=== PATIENT | male | born 1950 | race Caucasian/White ===

== ENCOUNTER 2025-02-28 08:02 | Inpatient (IN) ==
--- NOTE | 2025-02-05 16:10 | PAT Medication Instructions ---
Medication Instructions Date of Service February 05, 2025 Home Medications Medication Instructions Recorded insulin lispro 100 unit/mL See Rx Instructions .Route 04/01/24 subcutaneous pen (Admelog SoloStar .COMPLEX #105 mL U-) semaglutide 1 mg/dose (4 mg/3 mL) 1 mg (0.75 mL) subcut ONCE #9 mL 08/09/24 subcutaneous pen injector (Ozempic) insulin degludec 200 unit/mL (3 120 unit (0.6 mL) subcut BID #108 11/21/ mL) subcutaneous pen (Tresiba mL FlexTouch U-200 insulin) amlodipine 10 mg tablet 10 mg PO QAM aspirin 81 mg tablet,delayed release (Adult Low Dose Aspirin) 81 mg PO DAILY cholecalciferol (vitamin D3) 1,250 mcg (50,000 unit) tablet 50,000 unit PO .COMPLEX fenofibrate nanocrystallized 145 mg tablet 145 mg PO QAM isosorbide mononitrate 60 mg tablet,extended release 24 hr 60 mg PO QAM coenzyme Q10 200 mg capsule 200 mg PO QAM ascorbic acid (vitamin C) 500 mg capsule 500 mg PO QAM carvedilol 25 mg tablet 25 mg PO BID zinc gluconate 30 mg tablet 30 mg PO QAM atorvastatin 40 mg tablet 80 mg PO HS ticagrelor 90 mg tablet (Brilinta) 90 mg PO BID insulin lispro 100 unit/mL subcutaneous pen (Admelog SoloStar U-) See Rx Instructions semaglutide 1 mg/dose (4 mg/3 mL) subcutaneous pen injector (Ozempic) 1 mg (0.75 mL) subcut ONCE insulin degludec 200 unit/mL (3 mL) subcutaneous pen (Tresiba FlexTouch U-200 insulin) 120 unit (0.6 mL) subcut BID gabapentin 300 mg capsule 300 mg PO BID losartan 100 mg tablet 25 mg PO QAM Continue as directed cholecalciferol (vitamin D3) 1,250 mcg (50,000 unit) tablet 50,000 unit PO .COMPLEX (just do not take on day of surgery) ASK your prescriber and surgeon aspirin 81 mg tablet,delayed release (Adult Low Dose Aspirin) 81 mg PO DAILY ticagrelor 90 mg tablet (Brilinta) 90 mg PO BID STOP taking 2 weeks before surgery coenzyme Q10 200 mg capsule 200 mg PO QAM STOP taking at least 7 days before surgery semaglutide 1 mg/dose (4 mg/3 mL) subcutaneous pen injector (Ozempic) 1 mg (0.75 mL) subcut ONCE STOP taking 48 hours before surgery fenofibrate nanocrystallized 145 mg tablet 145 mg PO QAM DO NOT take the morning of surgery ascorbic acid (vitamin C) 500 mg capsule 500 mg PO QAM losartan 100 mg tablet 25 mg PO QAM zinc gluconate 30 mg tablet 30 mg PO QAM insulin lispro 100 unit/mL subcutaneous pen (Admelog SoloStar U-) See Rx Inst ructions Take morning of surgery With a small sip of water, OTHERWISE NOTHING TO EAT OR DRINK AFTER MIDNIGHT: amlodipine 10 mg tablet 10 mg PO QAM isosorbide mononitrate 60 mg tablet,extended release 24 hr 60 mg PO QAM carvedilol 25 mg tablet 25 mg PO BID gabapentin 300 mg capsule 300 mg PO BID Take evening before surgery carvedilol 25 mg tablet 25 mg PO BID atorvastatin 40 mg tablet 80 mg PO HS gabapentin 300 mg capsule 300 mg PO BID insulin degludec 200 unit/mL (3 mL) subcutaneous pen (Tresiba FlexTouch U-200 insulin) 120 unit (0.6 mL) subcut BID insulin lispro 100 unit/mL subcutaneous pen (Admelog SoloStar U-) See Rx Instructions Insulin Dependent Diabetic Patients * Test your blood sugar the morning of surgery * If Blood Sugar is GREATER THAN 150, take HALF of your regular dose of: insulin degludec 200 unit/mL (3 mL) subcutaneous pen (Tresiba FlexTouch U-200 insulin) (60 units) * If Blood Sugar is LESS THAN 150, DO NOT TAKE ANY: insulin degludec 200 unit/mL (3 mL) subcutaneous pen (Tresiba FlexTouch U-200 insulin) Other Notes If you have any questions please call us at [phone] or [phone] or [phone] or [phone]
--- NOTE | 2025-02-14 10:11 | Anesthesiology Consultation ---
Date of Service February 14, 2025 Assessment & Plan (1) Encounter for pre-operative examination: - Check BSG DOS - Infectious disease screening: Per assessment on 02/14/25- No known recent infectious disease contacts or current infectious disease symptoms. - GLP-1 medication instructions: Patient informed by PAT to stop 7 days prior to surgery- voiced understanding. DOS 02/28/25. Advised last dose to be 02/17/25. - Cardiology visit (01/16/25): "Patient is cleared for proposed spinal surgery at moderate risk based on revised sheri criteria.. Should he be required to hold his ASA/Brilinta by surgeon, he is > 1 year post stenting. I did discuss that his risk of stent thrombosis/SC is low but not zero should he be asked to hold his D APT preop and should resume as soon as safely possible postop.. Ischemic cardiomyopathy.. Entresto on hold as he does have a creatinine of 2.4. Continue Coreg, no other GDMT due to renal failure. Update echo now.." Echo done 01/23/25* - Cardiology note (01/24/25): "Low to moderate risk.. Patient is cleared for scheduled surgery" - Endocrine visit (02/11/25): "Glucose control is excellent. He is currently tracking blood sugars 3X/day every day consistently: Average 157 mg/dL, time in range (70-180 mg/dL) 75%, no hypoglycemia, predicted A1c 7.2%. No updated labs in several months, still waiting for those to be sent to us. He remains on Ozempic 1 mg, Tresiba 120 units twice daily, and NovoLog 35-40 units with meals. No questions or concerns regarding glucose control today.. He was previously prescribed Farxiga by his infertility medical assistant in 2023, unfortunately could not tolerate due to severe nausea. Could therefore challenge him with Jardiance in the future.. He is having spine surgery on February 28, and was requested to hold Ozempic 1 week prior to the procedure. We discussed today that he will likely need about 10-20% more insulin during that week prior to surgery without the effects from Ozempic. He is comfortable adjusting insulin on his own. We also discussed the importance of very good glucose control the first 72 hours following surgery for recovery purposes.. Foot exam today unremarkable; perfect sensation to monofilament testing, pulses palpable.." - Pending: * Awaiting surgeon-ordered PCP preop evaluation ([facility]/Ted Oneil PAC, appt 02/19). * Awaiting upcoming nephrology visit (Dr. Priti Collins, appt 02/21). * Awaiting 11/2023 cardiac cath report (from either [facility] or cardio/Dr. Fan). Chart Review Chart Review: Patient seen in Pre Admission Testing Teaching & Discussion Pre-Anesthesia Teaching/Discussion Notes: Instructed NPO after midnight before surgery,except medications with 15 cc of water. Medication instructions provided according to the PAT guidelines. History Surgery Operation Date: 02/28/25 07:45 Proposed Procedures p L4-S1 Decompression and Fusion, Spinal Cord Monitoring - Kirk Saelh DO Height/Weight Height: 6 ft 1 in Weight: 108.3 kg Allergies Allergy/AdvReac Type Severity Reaction Status Date / Time No Known Allergies Allergy Unknown Verified 02/11/25 08:51 Medications Home Medications Medication Instructions Recorded Confirmed Last Taken amlodipine 10 mg tablet 10 mg PO QAM 07/31/20 02/11/25 Unknown aspirin 81 mg tablet,delayed 81 mg PO DAILY 07/31/20 02/11/25 Unknown release (Adult Low Dose Aspirin) blood sugar diagnostic (FreeStyle #10 ea 07/31/20 02/11/25 Unknown Lite Strips) cholecalciferol (vitamin D3) 1,250 50,000 unit PO .COMPLEX 07/31/20 02/11/25 Unknown mcg (50,000 unit) tablet fenofibrate nanocrystallized 145 145 mg PO QAM 07/31/20 02/11/25 Unknown mg tablet isosorbide mononitrate 60 mg 60 mg PO QAM 07/31/20 02/11/25 Unknown tablet,extended release 24 hr lancets 28 gauge (FreeStyle #100 ea 02/04/21 02/11/25 Unknown Lancets) coenzyme Q10 200 mg capsule 200 mg PO QAM 06/15/21 02/11/25 Unknown ascorbic acid (vitamin C) 500 mg 500 mg PO QAM 10/12/22 02/11/25 Unknown capsule carvedilol 25 mg tablet 25 mg PO BID 02/08/23 02/11/25 Unknown zinc gluconate 30 mg tablet 30 mg PO QAM 02/08/23 02/11/25 Unknown atorvastatin 40 mg tablet 80 mg PO HS 02/05/24 02/11/25 Unknown ticagrelor 90 mg tablet (Brilinta) 90 mg PO BID 02/05/24 02/11/25 Unknown semaglutide 1 mg/dose (4 mg/3 mL) 1 mg (0.75 mL) subcut ONCE #9 mL 08/09/24 02/11/25 Unknown subcutaneous pen injector (Ozempic) insulin degludec 200 unit/mL (3 120 unit (0.6 mL) subcut BID #108 11/21/24 02/11/25 Unknown mL) subcutaneous pen (Tresiba mL FlexTouch U-200 insulin) gabapentin 300 mg capsule 300 mg PO BID 02/03/25 02/11/25 Unknown losartan 100 mg tablet 25 mg PO QAM 02/03/25 02/11/25 Unknown insulin lispro 100 unit/mL See Rx Instructions .Route 02/11/25 02/11/25 Unknown subcutaneous pen (Admelog SoloStar .COMPLEX #105 mL U-) Past Medical History Medical History Arthritis CAD (coronary artery disease) 11/2023- stents x2 Follows with Dr. Fan/[facility] Carotid artery stenosis <50% bilat ICA stenosis by 03/2024 doppler (per received cardio records) Chronic back pain Chronic kidney disease, stage 4 (severe) Follows with [facility] nephrology (Dr. Collins) DDD (degenerative disc disease), lumbar Diabetic nephropathy associated with type 2 diabetes mellitus Dyslipidemia HTN (hypertension) Hx of myocardial infarction (11/2023) SC > stents x2 Hx of renal calculi Ischemic cardiomyopathy T2DM (type 2 diabetes mellitus) Exercise / Class Metabolic Activity III < 4 Walking/Shop/Light housework Past Family History Family History Father Cancer Sister Cancer Coronary heart disease Past Surgical History Surgical History History of bilateral knee arthroplasty Most recent Left knee (d/t torn meniscus 3-4 years ago) History of heart artery stent (11/2023) Stents x2 History of shoulder surgery Right shoulder Hx of cardiac catheterization (11/2023) stents x2 Hx of colonoscopy Hx of lithotripsy Past Anesthesia History No Hx of Anesthesia Complications and No Family Hx of Anesthesia Complications History of PONV No Hx of PONV and No Hx of Motion Sickness Social History Smoking Status: Never smoker Do You Dip or Chew Tobacco: No (Quit chewing 5+ years ago) Hx Alcohol Use: No Hx Substance Use: No substance use type: does not use Review of Systems Patient denies chest pain, shortness of breath, fever, chills, cough, wheezing, palpitations. Physical Exam Vital Signs BP 123/70 P 68 TEMP 97.5 SP02 97%RA RESP 18 Physical Mildly decreased cervical extension range of motion. Full TMJ range of motion. TMD 3 finger breaths Mallampati Score III Dentition: intact Lungs: clear throughout to auscultation Cardiac: regular rate and rhythm, no murmurs noted Spine: normal Carotid arteries: negative bruit Extremities: no LE edema Lab Results Anesthesia Preop Results Results Anesthesia Widget: WBC 7.49 K/ul (4.8-10.8) 02/14/25 Hgb 13.4 g/dl (14.0-18.0) L 02/14/25 Hct 39.2 % (42.0-52.0) L 02/14/25 Plt 168 K/uL (130-400) 02/14/25 PT 12.3 Seconds (9.0-12.0) H 02/14/25 PTT 24 Seconds (21-31) 02/14/25 INR 1.1 (0.9-1.1) 02/14/25 HA1c 6.8 % H 02/13/25 Blood Type B Positive 02/14/25 Antibody Screen NEGATIVE 02/14/25 Testing Laboratory Results 02/14/24 SODIUM 142 POTASSIUM 4.0 CHLORIDE 113 CO2 26.0 BUN 27.0 CREATININE 2.30 GLUCOSE 160 UA negative leuk est/nitrite HGBA1C 6.8% Electrocardiogram Date: 02/14/25 SR with first degree AVB at 67bpm. PRWP, consider anterior SC vs lead placement vs LVH. NS TWA. Compared to , NS TWA has replaced inverted T waves in inferior leads per pharmacy intern comparison. Chest X-Ray Date: 02/14/25 Findings: + NAD Echocardiogram Date: 01/23/25 LVEF 40-45%. Mild LVH. Mildly HK mid inferoseptum apical lateral wall and apical septum and mildly decreased systolic function. Mild LAE. Mild MR. Grade I DD. Cardiac Catheterization "11/2023 STEMI ([place]) CATH PCI ostial LAD" per 01/16/25 cardiology office visit note. Multiple attempts to obtain official cath report have been unsuccessful thus far.
[2025-02-28] MEDS ORDERED: ROCURONIUM BROMIDE 10 MG/ML 5 ML VIAL IV ONE ×2 (08:27→10:12)
[2025-02-28] MEDS ORDERED: fentaNYL citrate PF 100 MCG/2 ML VIAL ONE (08:27)
[2025-02-28] MEDS ORDERED: LIDOCAINE 2% 2 ML VIAL/AMP(20MG/ML) INFIL ONE (08:27)
[2025-02-28] MEDS ORDERED: PROPOFOL IV EMULSION 10 MG/ML 20 ML VIAL IV ONE ×2 (08:27→08:32)
[2025-02-28] MEDS ORDERED: ONDANSETRON INJ 2 MG/ML 2 ML VIAL ONE (08:27)
[2025-02-28] MEDS ORDERED: MIDAZOLAM HCL 1 MG/ML 2ML VIAL ONE (08:27)
[2025-02-28] MEDS ORDERED: DEXAMETHASONE SOD INJ 4 MG/ML VIAL ONE (08:27)
[2025-02-28] MEDS: SODIUM CHLORIDE 0.9% 1000ML IV SCH (08:32)
[2025-02-28] MEDS: GABAPENTIN 300 MG CAP PO SCH ×2 (08:33→20:23)
[2025-02-28] MEDS: CeleBREX 200 MG CAP PO SCH (08:33)
[2025-02-28] MEDS: ACETAMINOPHEN 500 MG TAB PO SCH (08:33)
[2025-02-28] MEDS: LR 60ML/HR IV SCH (08:46)
[2025-02-28] MEDS ORDERED: fentaNYL citrate PF 100 MCG/2 ML VIAL IV PRN (09:15)
[2025-02-28] MEDS ORDERED: ePHEDrine sulfate 50 MG/ML AMP IV PRN (09:15)
[2025-02-28] MEDS ORDERED: ATROPINE SULFATE 0.1 MG/ML 10ML SYR IV PRN (09:15)
[2025-02-28] MEDS ORDERED: ONDANSETRON INJ 2 MG/ML 2 ML VIAL IV PRN (09:15)
--- NOTE | 2025-02-28 09:20 | History & Physical Bridge Note ---
Date of Service February 28, 2025 History & Physical Bridge Note I have examined the patient, reviewed the History & Physical and in the interval since the performance of the History & Physical I have noted the following changes of clinical significance: no changes noted
--- NOTE | 2025-02-28 09:21 | History & Physical Report ---
Date of Service February 28, 2025 Assessment & Plan (1) Lumbosacral spondylosis with radiculopathy: Plan: L4-S1 decompression fusion History of Present Illness Chief Complaint: Back and leg pain Primary Care Provider: Ted Oneil PA-C This is a 74-year-old male presents with chronic persistent back and leg pain and failing course of nonoperative care is here for surgical invention. Allergies Allergy/AdvReac Type Severity Reaction Status Date / Time No Known Allergies Allergy Unknown Verified 02/28/25 08:15 Home Medications Medication Instructions Recorded Confirmed Type amlodipine 10 mg tablet 10 mg PO QAM 07/31/20 02/28/25 History aspirin 81 mg tablet,delayed 81 mg PO DAILY 07/31/20 02/28/25 History release (Adult Low Dose Aspirin) blood sugar diagnostic (FreeStyle #10 ea 07/31/20 02/11/25 History Lite Strips) cholecalciferol (vitamin D3) 1,250 50,000 unit PO .COMPLEX 07/31/20 02/28/25 History mcg (50,000 unit) tablet fenofibrate nanocrystallized 145 145 mg PO QAM 07/31/20 02/28/25 History mg tablet isosorbide mononitrate 60 mg 60 mg PO QAM 07/31/20 02/28/25 History tablet,extended release 24 hr lancets 28 gauge (FreeStyle #100 ea 02/04/21 02/11/25 History Lancets) coenzyme Q10 200 mg capsule 200 mg PO QAM 06/15/21 02/28/25 History ascorbic acid (vitamin C) 500 mg 500 mg PO QAM 10/12/22 02/28/25 History capsule carvedilol 25 mg tablet 25 mg PO BID 02/08/23 02/28/25 History zinc gluconate 30 mg tablet 30 mg PO QAM 02/08/23 02/28/25 History atorvastatin 40 mg tablet 80 mg PO HS 02/05/24 02/28/25 History ticagrelor 90 mg tablet (Brilinta) 90 mg PO BID 02/05/24 02/28/25 History semaglutide 1 mg/dose (4 mg/3 mL) 1 mg (0.75 mL) subcut ONCE #9 mL 08/09/24 02/28/25 Rx subcutaneous pen injector (Ozempic) insulin degludec 200 unit/mL (3 120 unit (0.6 mL) subcut BID #108 11/21/24 02/28/25 Rx mL) subcutaneous pen (Tresiba mL FlexTouch U-200 insulin) gabapentin 300 mg capsule 300 mg PO BID 02/03/25 02/28/25 History losartan 100 mg tablet 25 mg PO QAM 02/03/25 02/28/25 History insulin lispro 100 unit/mL See Rx Instructions .Route 02/11/25 02/28/25 Rx subcutaneous pen (Admelog SoloStar .COMPLEX #105 mL U-) Past Med/Surg History Problem List (Updated 02/28/25 @ 09:21 by Kirk Saleh DO) Lumbosacral spondylosis with radiculopathy Encounter for pre-operative examination T2DM (type 2 diabetes mellitus) Hypertension (Chronic) Dyslipidemia (Chronic) Stented coronary artery (Chronic) CAD (coronary atherosclerotic disease) (Chronic) Vitamin D deficiency Chronic renal disease, stage 4, severely decreased glomerular filtration rate (GFR) between 15-29 mL/min/1.73 square meter (Chronic) Diabetic nephropathy associated with type 2 diabetes mellitus (Chronic) Background diabetic retinopathy associated with type 2 diabetes mellitus (Chronic) Medical History Arthritis CAD (coronary artery disease) 11/2023- stents x2 Follows with Dr. Fan/[facility] Carotid artery stenosis <50% bilat ICA stenosis by 03/2024 doppler (per received cardio records) Chronic back pain Chronic kidney disease, stage 4 (severe) Follows with [facility] nephrology (Dr. Collins) DDD (degenerative disc disease), lumbar Diabetic nephropathy associated with type 2 diabetes mellitus Dyslipidemia HTN (hypertension) Hx of myocardial infarction (11/2023) SC > stents x2 Hx of renal calculi Ischemic cardiomyopathy T2DM (type 2 diabetes mellitus) Surgical History History of bilateral knee arthroplasty Most recent Left knee (d/t torn meniscus 3-4 years ago) History of heart artery stent (11/2023) Stents x2 History of shoulder surgery Right shoulder Hx of cardiac catheterization (11/2023) stents x2 Hx of colonoscopy Hx of lithotripsy Family History Father Cancer Sister Cancer Coronary heart disease Social History Smoking Status: Never smoker Second Hand Exposure: No; Do You Dip or Chew Tobacco: No (Quit chewing 5+ years ago); Tobacco Cessation Education Requested by Patient: No Hx Alcohol Use: No Hx Substance Use: No Preferred Language: Romansh Communication Ability: Effective Head Golf Coach Required: No Beliefs That Will Affect Care: None Current Living Situation: Spouse Other Information That Helps Us Care for You: No Feels Safe at Home: Yes Safety Concerns: Feels Safe At This Time Assistive Devices: Glasses Physical Exam Physical Exam: Patient is alert and oriented heart regular rhythm Lungs clear Results & Data Results & Data Vital Signs (Past 12 Hours) Vital Signs Temp Pulse Resp BP Pulse Ox O2 Del Method 02/28/25 08:39 36.6 C 71 20 130/75 93 Room Air
[2025-02-28] MEDS: ceFAZolin 2000MG 2,000 MG/15 ML SYR IV SCH ×2 (09:50→18:29)
[2025-02-28] MEDS ORDERED: PHENYLEPHRINE HCL 10 MG/ML VIAL ONE (10:40)
[2025-02-28] MEDS ORDERED: VASOPRESSIN 20 UNIT/ML VIAL ONE (10:43)
[2025-02-28] MEDS ORDERED: ALBUMIN HUMAN 5% 12.5 GM/250 ML VIAL IV ONE (10:52)
[2025-02-28] MEDS ORDERED: HYDROmorphone INJ 2 MG/ML SYR/VIAL ONE (10:59)
[2025-02-28] MEDS: BUPIVACAINE/EPINEPHRINE 0.25% 1:200,000 30 ML VIAL ONE (11:01)
[2025-02-28] MEDS: ceFAZolin 330 MG/ML 1 GM VIAL ONE (11:01)
[2025-02-28] MEDS ORDERED: SUGAMMADEX SODIUM 200 MG/2 ML VIAL IV ONE (12:14)
[2025-02-28] MEDS: FLOSEAL HEMOSTATIC MATRIX 10ML TOP ONE ×2 (12:20)
--- NOTE | 2025-02-28 12:26 | Operative Report ---
Post Operative Report Pre & Post Diagnosis Operation Date: 02/28/25 09:35 Pre-Op Diagnosis: #1 lumbar spondylosis with radiculopathy #2 lumbar spondylolisthesis with radiculopathy #3 lumbar spinal stenosis Post-Op Diagnosis: Same I identified the patient and participated in the time-out.: Yes Procedure Operation Date: 02/28/25 09:35 Actual Procedures #1 lumbar decompression with bilateral facetectomies and foraminotomies L3-L4, L4-5 and L5-S1. #2 posterior spinal fusion L4-S1. #3 placed posterior instrumentation L4-S1 using camber. #4 interbody fusion L4-5 L5-S1. #5 posterior spinal fusion by 16 by 26 mm x 2 at L4-5 and 17 x 26 mm x 2 at L5-S1. #6 post locally harvested morselized autograft in the posterior gutters. #7 please infuse collagen sponge, with Koros in the posterior gutters and os design interbody space. #8 application of versa wrap over the exposed dura. Surgeon Kirk Saleh, DO Cafeteria Supervisor Felipe Schilling Estimated Blood Loss 350 Findings See Below The patient is 6 foot 1 weighing 110 kg with a BMI of 32. Patient's body was did contribute to significant technical difficulty with positioning exposure and the procedure itself at least 50% increased operative time. Specimens None Indications This is a 74-year-old male presenting bilateral diagnosis after failing course of nonoperative care is here for surgical invention. Description of Procedure Patient was met with identified informed consent obtained. Patient was then taken to the operative suite underwent intubation placed in a prone position on the Lex table top of the Evan frame. All bony prominences well-padded I suspected to ensure no external precipice upon them. This point lumbar spine was prepped and draped in normal sterile fashion. Sharp dissection with the assistance of Bovie cautery from down to and exposing the lamina transverse pr ocesses of L4-5 and sacral ala bilaterally. From caudal to cephalad fashion complete laminectomy of all 5 was performed including bilateral medial facetectomies and foraminotomies followed complete laminectomy of L4 with bilateral medial facetectomies and foraminotomies and lastly partial laminectomy of L3 with bilateral male facetectomies to address all of subarticular stenosis. Pedicle screws were then placed at L4-5 and S1 levels bilaterally with assistance of fluoroscopy and appropriate sized mathew placed. Darrel transforaminal portion of right I discectomy of L5-S1 was performed endplates grade 2 subcortical bleeding bone and a 17 x 26 mm spiral cage filled with os design bone graft tapped in position. Then proceeded to the left transforaminal region at L5-S1. Again discectomy performed. Endplates guarded to subcortical bleeding bone and a second 17 x 26 mm spiral cage filled with os design bone graft tapped in position. Then proceeded L4-[address] transforaminal posterior left discectomy performed. Endplates guided to subcortical bleeding bone. A 16 x 26 mm spiral cage filled with os design tapped in position. Then proceeded to the right transforaminal region at L4-5. Again discectomy performed. endplates created to subcortical bleeding bone and a second 16 x 26 mm spiral cage filled with os design tapped in position. Rods were then compressed locked in final position bilaterally. The transverse processes of L4-L5 and sacral ala burred to subcortical bleeding bone. Infuse collagen sponge, with Koros and local autograft placed in posterior gutters. First wrap placed over the exposed dura. 15 round MAGALIS drain inserted. The incision was then closed with 1 Vicryl the fascia 2-0 Vicryl subcutaneously and 4 Monocryl for fascial closure. Steri-Strips sterile dressing placed. Patient waken taken to PACU stable condition. Please note Felipe Mccord was present out the entire procedure involved the patient positioning complex portion of the surgery and final skin closure. Im ordering 10 grams of Collagen Powder (HCPCS A6010 Primary Dressing) and 10 bordered super absorbent (HCPCS A6196 Secondary Dressing) to treat an incision wound that was caused by a spine procedure. The incision is approximately 2 cm(W) x 2 cm(L) down to the spinal column and epidural space 2 cm (D) in size and is a full thickness wound showing no signs of infection. Collagen comes in 1 gram packets so 10 packets were ordered. Given the size of the wound, with moderate exudate I chose to order a 10 day supply. The patient will be provided instructions for proper application of the collagen wound kit. The patient will be asked to apply the collagen powder daily and then cover it with sterile dressings dispensed. Collagen was selected as I expect the collagen to attract monocytes and fibroblasts, act as a sacrificial substrate for MMPs, and ultimately proved a matrix for tissue and vessel growth. The collagen will act as a primary dressing in this scenario. It is medically necessary for proper healing of these wounds to improve bioavailability and contact with each wound surface, this is also to help prevent infection of wounds and promote healing ultimately leading to a better healing outcome and limit the risk of infection. I attest to the content of the Intraoperative Record and any orders documented therein. Any exceptions are noted below.
--- NOTE | 2025-02-28 12:46 | Fluoroscopy Report ---
FL lumbar spine 2-3V CLINICAL HISTORY: L4-S1 DECOMP/FUSION COMPARISON STUDY: None FLUOROSCOPY TIME: 24 seconds FLUOROSCOPY IMAGES: 3 EXPOSURE DOSE: 21 mGy FINDINGS: Fluoroscopy was provided for lower lumbar metallic fusion. IMPRESSION: Intraoperative fluoroscopy. ACT 112: Negative or not required by law. Electronically signed by: Andry Cotto M.D. 02/28/2025 12:45 PM
[2025-02-28 15:14] LABS: iSTAT Art Bld Gas pCO2 Correct 67 mmHg (35-46); iSTAT Art Bld Gas pH Corrected 7.169 (7.35-7.45); iSTAT Arterial Blood Gas HCO3 25 meg/L (19-24); iSTAT Arterial Blood Gas pCO2 67 mmHg (35-46); iSTAT Arterial Blood Gas pH 7.17 (7.35-7.45); iSTAT Arterial Blood Gas pO2 79 mmHg (80-95); iSTAT Arterial Blood Gas pO2 C 79; iSTAT Carbon Dioxide 26 mmol/L (24-31); iSTAT FiO2 40 %; iSTAT Hematocrit 32 % (42-52); iSTAT Hemoglobin 10.9 g/dl (14.0-18.0); iSTAT Potassium 5.3 mmol/L (3.3-5.0); iSTAT Sample Type Arterial; iSTAT Site Art Line; iSTAT Sodium 141 mmol/L (135-144); iSTAT SpO2 96
[2025-02-28] MEDS: NALOXONE HCL 0.4 MG/1 ML VIAL/CARP ONE (15:28)
--- NOTE | 2025-02-28 15:37 | Hospitalist Consultation ---
Date of Consultation February 28, 2025 Assessment & Plan (1) Hypercapnic respiratory failure: Hypercapnic respiratory failure 2/2 POLO, narcosis, anesthesia Continue BiPAP target tidal volume 450-600cc VBG pH 7.1/pCO2 67. Repeat with adjustment of head position and BiPAP adjustment and improved vitals 7.24/55. Patient was given Narcan with some improvement. Likely due to sedation and severe POLO. Patient was on 10/01 with volumes of [id number]. 05/08 400/500. No significant air leak. Following adjustment of head position with some neck extension and jaw left greatly improved, 500-600 cc at 10/01. Positive pressure ventilation limitation due to POLO/obstruction. Alertness improving, patient maintaining tidal volumes with improved alertness Continue BiPAP Will repeat ABG in 30-60 minutes and follow on PCU Repeat ABG at 1630: pH 7.31/pCO2 45/pO2 166 Altered mental status Suspect due to hypercapnic respiratory failure, some narcosis Improving with BiPAP and post Narcan Reportedly did have some hypotension intraoperatively and required 7 mg of sayra-/10 mg vasopressin. No prolonged hypotension. EKG without acute ischemic changes Type II DM Ozempic held while inpatient Continue basal bolus insulin while admitted Patient is with very high insulin requirements, on degludec 120 units twice daily outpatient - Weight-based requirements would be 10 units Lantus twice daily, CF 40, carb ratio 15. Home requirements 120 units twice daily of basal alone with a CF 5/carb ratio of 1. Last endocrine note 01/2025 reviewed. Does confirm Tresiba 120 units twice daily, NovoLog 35-40 unit with meal requirement. Did review with pharmacy. If patient was compliant then would recommend 80 units twice daily, CF 10/CR 3. If patient has questionable compliance then would recommend Lantus 25 units twice daily, CF 15/CR 5. Given altered mental status and high risk of hypoglycemia we will treat with Lantus 25 units twice daily, goal range [id number], CF 15, CR 5 at this time. Glycemic consult will follow for close management. If patient is able to confirm compliance then suggest switch to Lantus units twice daily, NovoLog [id number] goal, CF 10/CR 3. Appreciate pharmacy review and recommendations Goal BSG 485422 CAD, history of PCI, EF 40% Past PCI more than 1 year ago Previously on aspirin/Brilinta Resume at least aspirin therapy when okay per surgical team. Would do this as soon as possible for stent protection Continue isosorbide, losartan, atorvastatin CKD 4 Creatinine approximately 22.4 BMP pending Renally dose medications as needed Hyperkalemia [id number] potassium elevated at 5.9. This was in the setting of acute severe acidosis due to hypercapnic respiratory failure BMP pending - Acidosis is improving on ABG recheck, BMP with potassium of 6.0 EKG: NSR, increased slightly peaked appearance of precordial T waves Calcium gluconate x 1 ordered, insulin dextrose x 1 ordered. LR rate increased to 150. Still has a low potassium relative to his plasma, and he is both acidotic and hyperchloremic. LR likely to benefit both acidosis and hyperkalemia over saline. repeat ABG with improving acidosis. pH trended. If potassium is persistently elevated on next check then will add Lokelma if mentation improved. DVT prophylaxis: Per primary team CODE STATUS: Full code Disposition: PCU Diet: Heart healthy/DM2 (2) T2DM (type 2 diabetes mellitus): (3) Hypertension: (4) Dyslipidemia: (5) CAD (coronary atherosclerotic disease): (6) Chronic renal disease, stage 4, severely decreased glomerular filtration rate (GFR) between 15-29 mL/min/1.73 square meter: History of Present Illness Attending Physician: Kirk Saleh DO History of Present Illness Ted is a 74yo M with past medical history of type II DM, POLO, CAD with PCI to the proximal LAD/diagonal, who presented for scheduled lumbar decompression and fusion. We were consulted for postop hypercapnic respiratory failure and prolon ged sedation. Seen the bedside in PACU. Reportedly with end-tidal CO2 in the 60s, following extubation was very sedated and difficult to arouse. VBG with pH of 7.1, PCO2 approximately 60. Were consulted stat for hypercapnic respiratory failure. Following adjustment of head position, 2 doses of Narcan, and reevaluation patient pulling adequate tidal volumes of 500 cc and with improvement and m entation, although still very somnolent. Did require head position adjustment with anesthesia for adequate tidal volumes and has POLO/likely OHS. Blood gas improving on reassessment. No chest pain, history limited by somnolence. Transferred to PCU for ongoing monitoring. History was somewhat limited by mentation. Allergies Allergy/AdvReac Type Severity Reaction Status Date / Time No Known Allergies Allergy Unknown Verified 02/28/25 08:15 Home Medications Medication Instructions Recorded Confirmed Type amlodipine 10 mg tablet 10 mg PO QAM 07/31/20 02/28/25 History aspirin 81 mg tablet,delayed 81 mg PO DAILY 07/31/20 02/28/25 History release (Adult Low Dose Aspirin) blood sugar diagnostic (FreeStyle #10 ea 07/31/20 02/11/25 History Lite Strips) cholecalciferol (vitamin D3) 1,250 50,000 unit PO .COMPLEX 07/31/20 02/28/25 History mcg (50,000 unit) tablet fenofibrate nanocrystallized 145 145 mg PO QAM 07/31/20 02/28/25 History mg tablet isosorbide mononitrate 60 mg 60 mg PO QAM 07/31/20 02/28/25 History tablet,extended release 24 hr lancets 28 gauge (FreeStyle #100 ea 02/04/21 02/11/25 History Lancets) coenzyme Q10 200 mg capsule 200 mg PO QAM 06/15/21 02/28/25 History ascorbic acid (vitamin C) 500 mg 500 mg PO QAM 10/12/22 02/28/25 History capsule carvedilol 25 mg tablet 25 mg PO BID 02/08/23 02/28/25 History zinc gluconate 30 mg tablet 30 mg PO QAM 02/08/23 02/28/25 History atorvastatin 40 mg tablet 80 mg PO HS 02/05/24 02/28/25 History ticagrelor 90 mg tablet (Brilinta) 90 mg PO BID 02/05/24 02/28/25 History semaglutide 1 mg/dose (4 mg/3 mL) 1 mg (0.75 mL) subcut ONCE #9 mL 08/09/24 02/28/25 Rx subcutaneous pen injector (Ozempic) insulin degludec 200 unit/mL (3 120 unit (0.6 mL) subcut BID #108 11/21/24 02/28/25 Rx mL) subcutaneous pen (Tresiba mL FlexTouch U-200 insulin) gabapentin 300 mg capsule 300 mg PO BID 02/03/25 02/28/25 History losartan 100 mg tablet 25 mg PO QAM 02/03/25 02/28/25 History insulin lispro 100 unit/mL See Rx Instructions .Route 02/11/25 02/28/25 Rx subcutaneous pen (Admelog SoloStar .COMPLEX #105 mL U-) Patient History Medical History Arthritis CAD (coronary artery disease) 11/2023- stents x2 Follows with Dr. Fan/G[facility] Carotid artery stenosis <50% bilat ICA stenosis by 03/2024 doppler (per received cardio records) Chronic back pain Chronic kidney disease, stage 4 (severe) Follows with [facility] nephrology (Dr. Collins) DDD (degenerative disc disease), lumbar Diabetic nephropathy associated with type 2 diabetes mellitus Dyslipidemia HTN (hypertension) Hx of myocardial infarction (11/2023) [place] > stents x2 Hx of renal calculi Ischemic cardiomyopathy T2DM (type 2 diabetes mellitus) Surgical History History of bilateral knee arthroplasty Most recent Left knee (d/t torn meniscus 3-4 years ago) History of heart artery stent (11/2023) Stents x2 History of shoulder surgery Right shoulder Hx of cardiac catheterization (11/2023) stents x2 Hx of colonoscopy Hx of lithotripsy Family History Father Cancer Sister Cancer Coronary heart disease Social History Smoking Status: Never smoker Second Hand Exposure: No; Do You Dip or Chew Tobacco: No (Quit chewing 5+ years ago); Tobacco Cessation Education Requested by Patient: No Hx Alcohol Use: No Hx Substance Use: No Preferred Language: Serbian Communication Ability: Effective Automotive Professional Required: No Beliefs That Will Affect Care: None Current Living Situation: Spouse Other Information That Helps Us Care for You: No Feels Safe at Home: Yes Safety Concerns: Feels Safe At This Time Assistive Devices: Glasses Physical Exam Physical Exam: General: Sedate, awakens transiently to voice and sternal rub. Verbalizes some answers to questions before falling back asleep HEENT: Atraumatic, normocephalic. Pulm: Diminished. On bipap Cardiac: RRR, -mrg. Radial pulses intact and symmetrical. Results & Data Results & Data Vital Signs (Past 12 Hours) Vital Signs Temp Pulse Pulse Pulse Resp BP BP 02/28/25 15:10 64 22 124/62 02/28/25 15:10 62 20 02/28/25 15:00 63 20 113/71 02/28/25 14:50 66 20 119/56 L 02/28/25 14:40 70 24 129/58 L 02/28/25 14:30 66 16 133/57 L 02/28/25 14:20 36.4 C L 65 16 135/57 L 02/28/25 14:10 69 18 129/56 L 02/28/25 14:00 66 18 128/62 02/28/25 13:50 63 18 129/58 L 02/28/25 13:40 63 18 123/55 L 02/28/25 13:30 61 18 114/56 L 02/28/25 13:20 60 16 107/52 L 02/28/25 13:10 61 18 115/53 L 02/28/25 13:06 60 14 02/28/25 13:00 36.0 C L 61 16 128/61 02/28/25 08:39 36.6 C 71 20 130/75 Pulse Ox O2 Del Method FiO2 02/28/25 15:10 93 BiPAP 02/28/25 15:10 93 55 02/28/25 15:00 94 BiPAP 02/28/25 14:50 95 BiPAP 02/28/25 14:40 99 BiPAP 02/28/25 14:30 97 BiPAP 02/28/25 14:20 98 BiPAP 02/28/25 14:10 97 BiPAP 02/28/25 14:00 98 BiPAP 02/28/25 13:50 96 BiPAP 02/28/25 13:40 96 BiPAP 02/28/25 13:30 96 BiPAP 02/28/25 13:20 96 BiPAP 02/28/25 13:10 100 BiPAP 02/28/25 13:06 96 40 02/28/25 13:00 100 BiPAP 02/28/25 08:39 93 Room Air PG Care Time/CCT Total # of Minutes Spent Total Time Spent with Patient: Total time spent is greater than 50% in coordination of care (as documented) at patient's floor/unit and/or counseling patient: Coding Level of Care Code 15354 IN/OBS CONSULT LVL 5,80M Diagnoses Hypercapnic respiratory failure J96.92 Type 2 diabetes mellitus with diabetic nephropathy, with long-term current use of insulin E11.21; Z79.4 Diabetes mellitus complication detail: with nephropathy Diabetes mellitus complication status: with kidney complications Diabetes mellitus intermediate frame tender insulin use: with senior living use Primary hypertension I10 Hypertension type: primary hypertension Dyslipidemia E78.5 Atherosclerosis of [place] coronary artery of [place] heart with other form of angina pectoris I25.118 Associated angina: with other forms of angina Coronary Disease-Associated Artery/Lesion type: [place] artery [place]bb[place] vs. transplanted heart: [place] heart Chronic renal disease, stage 4, severely decreased glomerular filtration rate (GFR) between 15-29 mL/min/1.73 square meter N18.4 (2) T2DM (type 2 diabetes mellitus) Diabetes mellitus complication detail: with nephropathy Diabetes mellitus complication status: with kidney complications Diabetes mellitus senior living insulin use: with senior living use Qualified Code(s): E11.21 - Type 2 diabetes mellitus with diabetic nephropathy; Z79.4 - termite treater helper (current) use of insulin (3) Hypertension Hypertension type: primary hypertension Qualified Code(s): I10 - Essential (primary) hypertension (5) CAD (coronary atherosclerotic disease) Associated angina: with other forms of angina Coronary Disease-Associated Artery/Lesion type: [place] artery [place] vs. transplanted heart: [place] heart Qualified Code(s): I25.118 - Atherosclerotic heart disease of [place] coronary artery with other forms of angina pectoris
[2025-02-28 15:54] LABS: iSTAT Art Bld Gas pCO2 Correct 55 mmHg (35-46); iSTAT Art Bld Gas pH Corrected 7.242 (7.35-7.45); iSTAT Arterial Blood Gas HCO3 24 meg/L (19-24); iSTAT Arterial Blood Gas pCO2 55 mmHg (35-46); iSTAT Arterial Blood Gas pH 7.24 (7.35-7.45); iSTAT Arterial Blood Gas pO2 145 mmHg (80-95); iSTAT Arterial Blood Gas pO2 C 145; iSTAT Carbon Dioxide 25 mmol/L (24-31); iSTAT FiO2 40 %; iSTAT Hematocrit 35 % (42-52); iSTAT Hemoglobin 11.9 g/dl (14.0-18.0); iSTAT Potassium 5.9 mmol/L (3.3-5.0); iSTAT Sample Type Arterial; iSTAT Site Art Line; iSTAT Sodium 139 mmol/L (135-144); iSTAT SpO2 99
[2025-02-28 16:14] LABS: Albumin Globulin Ratio 1.9 (0.9-2); BUN Creatinine Ratio 12.3 (10-20); Bilirubin,Total 0.5 mg/dl (0.2-1.0); Creatinine Clr Calc Pharmacy 29.5 ml/min; Globulin 2.1 gm/dl (2.5-4.0); Total Protein 6.1 gm/dl (6.0-8.3)
[2025-02-28 16:20] LABS: Troponin I High Sensitivity 14.7 pg/ml (0-20)
--- NOTE | 2025-02-28 16:31 | Anesthesiology Progress Note ---
Date of Service February 28, 2025 Anesthesia Post Procedure Vital Signs Vital Signs: Temp Pulse Pulse Pulse Resp BP BP 02/28/25 16:15 63 21 122/75 02/28/25 16:00 36.4 C L 68 21 122/75 02/28/25 15:50 73 22 119/64 02/28/25 15:40 74 23 109/66 02/28/25 15:30 69 22 116/65 02/28/25 15:20 67 22 131/55 L 02/28/25 15:10 64 22 124/62 02/28/25 15:10 62 20 02/28/25 15:00 63 20 113/71 02/28/25 14:50 66 20 119/56 L 02/28/25 14:40 70 24 129/58 L 02/28/25 14:30 66 16 133/57 L 02/28/25 14:20 36.4 C L 65 16 135/57 L 02/28/25 14:10 69 18 129/56 L 02/28/25 14:00 66 18 128/62 02/28/25 13:50 63 18 129/58 L 02/28/25 13:40 63 18 123/55 L 02/28/25 13:30 61 18 114/56 L 02/28/25 13:20 60 16 107/52 L 02/28/25 13:10 61 18 115/53 L 02/28/25 13:06 60 14 02/28/25 13:00 36.0 C L 61 16 128/61 02/28/25 08:39 36.6 C 71 20 130/75 Pulse Ox O2 Del Method FiO2 02/28/25 16:15 100 BiPAP 02/28/25 16:00 100 BiPAP 02/28/25 15:50 100 BiPAP 02/28/25 15:40 100 BiPAP 02/28/25 15:30 99 BiPAP 02/28/25 15:20 92 BiPAP 02/28/25 15:10 93 BiPAP 02/28/25 15:10 93 55 02/28/25 15:00 94 BiPAP 02/28/25 14:50 95 BiPAP 02/28/25 14:40 99 BiPAP 02/28/25 14:30 97 BiPAP 02/28/25 14:20 98 BiPAP 02/28/25 14:10 97 BiPAP 02/28/25 14:00 98 BiPAP 02/28/25 13:50 96 BiPAP 02/28/25 13:40 96 BiPAP 02/28/25 13:30 96 BiPAP 02/28/25 13:20 96 BiPAP 02/28/25 13:10 100 BiPAP 02/28/25 13:06 96 40 02/28/25 13:00 100 BiPAP 02/28/25 08:39 93 Room Air Transfer of Care Handoff Completed per policy Notes Mental Status: alert / awake / arousable Patient Amnestic to Procedure: Yes Nausea / Vomiting: adequately controlled Pain: adequately controlled Airway Patency, RR, SpO2: see Notes below BP & HR: stable & adequate Hydration State: stable & adequate Anesthetic Complications: no major complications apparent Notes: pt placed on BiPAP in PACU d/t slow emergence and continued somnolence. After extended period of recovery without significant improvement in mental status, an ABG revealed respiratory acidosis. BiPAP setting adjusted with administration of Narcan. Mental status improved and respiratory acidosis resolved. continue BiPAP and transferred to PCU.
[2025-02-28] MEDS ORDERED: DO NOT ADMINISTER PNEUMOCOCCAL VACCINE PRN (16:53)
[2025-02-28] MEDS ORDERED: diphenhydrAMINE Capsule 25 MG CAP PO PRN (16:53)
[2025-02-28] MEDS ORDERED: hydrOXYzine HCl 25 MG TAB PO PRN (16:53)
[2025-02-28] MEDS ORDERED: ONDANSETRON 4 MG OD TAB PO PRN (16:53)
[2025-02-28] MEDS ORDERED: DO NOT ADMINISTER FLU VACCINE PRN (16:53)
[2025-02-28] MEDS ORDERED: LORazepam 2 MG/1 ML VIAL IV PRN (16:53)
[2025-02-28] MEDS ORDERED: SOD PHOSPHATE/SOD BIPHOSPHATE ENEMA 132 ML BTL PR PRN (16:53)
[2025-02-28] MEDS ORDERED: PROMETHAZINE 12.5 MG/50.5 ML BAG IV PRN (16:53)
[2025-02-28] MEDS ORDERED: LORazepam 0.5 MG TAB PO PRN (16:53)
[2025-02-28] MEDS ORDERED: MAGNESIUM HYDROXIDE SUSP 30 ML UDC PO PRN (16:53)
[2025-02-28] MEDS ORDERED: METOCLOPRAMIDE HCL INJ 5 MG/ML 2 ML VIAL IV PRN (16:53)
[2025-02-28] MEDS ORDERED: ALUMINUM/MAGNESIUM SUSP 30 ML UDC PO PRN (16:53)
[2025-02-28] MEDS ORDERED: ACETAMINOPHEN 1,000 MG/100 ML VIAL IV PRN (16:53)
[2025-02-28] MEDS ORDERED: FAMOTIDINE 20 MG TAB PO PRN (16:53)
[2025-02-28] MEDS ORDERED: bisacodyL 10 MG SUPP PR PRN (16:53)
[2025-02-28] MEDS ORDERED: PHARMACY GLYCEMIC MGMT CONSULT PRN (16:53)
[2025-02-28] MEDS ORDERED: NALOXONE HCL 0.4 MG/1 ML VIAL/CARP IV PRN (16:53)
[2025-02-28 16:56] LABS: iSTAT Art Bld Gas pCO2 Correct 46 mmHg (35-46); iSTAT Art Bld Gas pH Corrected 7.313 (7.35-7.45); iSTAT Arterial Blood Gas HCO3 23 meg/L (19-24); iSTAT Arterial Blood Gas pCO2 46 mmHg (35-46); iSTAT Arterial Blood Gas pH 7.31 (7.35-7.45); iSTAT Arterial Blood Gas pO2 166 mmHg (80-95); iSTAT Arterial Blood Gas pO2 C 166; iSTAT Carbon Dioxide 25 mmol/L (24-31); iSTAT FiO2 40 %; iSTAT Hematocrit 33 % (42-52); iSTAT Hemoglobin 11.2 g/dl (14.0-18.0); iSTAT Potassium 5.9 mmol/L (3.3-5.0); iSTAT Sample Type Arterial; iSTAT Site Art Line; iSTAT Sodium 140 mmol/L (135-144); iSTAT SpO2 100
[2025-02-28] MEDS ORDERED: GLUCOSE 10 TAB/TUBE PO PRN (17:00)
[2025-02-28] MEDS ORDERED: DEXTROSE 50% 50 ML SYRINGE IV PRN (17:00)
[2025-02-28] MEDS ORDERED: GLUCAGON FOR INJ 1 MG VIAL SQ PRN (17:00)
[2025-02-28] MEDS ORDERED: GLUCOSE 40% GEL 15 GM TUBE PO PRN (17:00)
[2025-02-28] MEDS: CALCIUM GLUCONATE 1,000 MG/60 ML BAG IV STA (17:26)
[2025-02-28] MEDS: DEXTROSE 50% 50 ML SYRINGE IV STA (17:26)
[2025-02-28] MEDS: INSULIN HUMAN REGULAR PER UNIT 10 UNITS in SYRINGE 9.9 ML IV STA (17:26)
--- NOTE | 2025-02-28 17:36 | XRay Report ---
EXAM: XR chest 1V portable CLINICAL HISTORY: resp failure. TECHNIQUE: An X-ray image of the chest is obtained in AP projection. COMPARISON: X-ray 02-14-2025. FINDINGS: Pulmonary Parenchyma: Lungs are clear bilaterally. No evidence of consolidation, collapse, or focal opacities. No pulmonary nodules are identified. No evidence of pleural effusion or pleural thickening. Heart and Mediastinum: Heart size and shape are normal. No mediastinal widening or masses. Prominent hilar vascular shadows. Bony Thorax: Bony thorax appears intact without fractures or deformities. Soft Tissues: Soft tissues overlying the chest wall are unremarkable. IMPRESSION: 1. Prominent hilar vascular shadows. Pulmonary congestion cannot be totally excluded. 2. Overall, no significant changes since the last study. Correlate with clinical findings. Electronically signed by Álvaro Infante 02-28-2025 5:36 PM
[2025-02-28] MEDS: LACTATED RINGER'S 1,000 ML IV SCH ×2 (17:52→20:22)
[2025-02-28 18:32] LABS: BUN Creatinine Ratio 13.2 (10-20); Calcium 8.4 mg/dl (8.6-10.3); Creatinine Clr Calc Pharmacy 29.1 ml/min; Potassium 5.6 mmol/L (3.5-5.1)
[2025-02-28] MEDS: INSULIN ASPART PER UNIT CHARGE SC SCH (18:39)
[2025-02-28] MEDS: INSULIN ASPART 100 UNITS/ML 3 ML PEN SC SCH (19:04)
[2025-02-28] MEDS: SODIUM CHLORIDE 0.9% 500 ML IV SCH (19:04)
[2025-02-28] MEDS: INSULIN HUMAN REGULAR PER UNIT 4 UNITS in SYRINGE 3.96 ML IV STA (19:45)
[2025-02-28] MEDS: SODIUM ZIRCONIUM CYCLOSILICATE 10 GM PACKET PO ONE (20:22)
[2025-02-28] MEDS: carvediloL 25 MG TAB PO SCH (20:23)
[2025-02-28] MEDS: ATORVASTATIN 40 MG TAB PO SCH (20:23)
[2025-02-28] MEDS: DOCUSATE SODIUM/SENNA 50/8.6MG TAB PO SCH (20:25)
[2025-02-28] MEDS: LANTUS PER UNIT CHARGE SC SCH (21:57)
--- NOTE | 2025-02-28 22:20 | Electrocardiogram Report ---
Test Reason : Blood Pressure : */* mmHG Vent. Rate : 66 BPM Atrial Rate : 66 BPM P-R Int : 202 ms QRS Dur : 112 ms QT Int : 428 ms P-R-T Axes : 61 -20 33 degrees QTcB Int : 448 ms Poor data quality, interpretation may be adversely affected Sinus rhythm with Premature atrial complexes Poor R wave progression, consider anterior [place] vs. lead placement vs. LVH Nonspecific T wave abnormality Abnormal ECG When compared with ECG of 14-Feb-2025 11:12, Premature atrial complexes are now Present UT interval has decreased Questionable change in initial forces of Lateral leads Confirmed by eGo Santoyo ([id number]) on 02/28/2025 10:20:39 PM Referred By: Kirk Saleh Confirmed By: Geo Santoyo
[2025-03-01 01:11] LABS: BUN Creatinine Ratio 13.6 (10-20); Calcium 8.6 mg/dl (8.6-10.3); Creatinine Clr Calc Pharmacy 27.1 ml/min; Potassium 5.4 mmol/L (3.5-5.1)
[2025-03-01] MEDS ORDERED: INSULIN ASPART 100 UNITS/ML 3 ML PEN SC ONE (02:00)
[2025-03-01] MEDS: INSULIN ASPART PER UNIT CHARGE SC ONE (02:14)
[2025-03-01] MEDS: ONDANSETRON INJ 2 MG/ML 2 ML VIAL IV PRN (02:22)
[2025-03-01] MEDS: POLYETHYLENE (MIRALAX) 17 GM PACK PO SCH (06:05)
[2025-03-01 06:22] LABS: Basophils # (auto) 0.03 K/uL (0.00-0.20); Basophils % (auto) 0.2 %; Hematocrit (blood only) 37.3 % (42.0-52.0); Hemoglobin 12.6 g/dl (14.0-18.0); Immature Granulocytes # (auto) 0.24 K/uL (0.01-0.20); Immature Granulocytes % (auto) 1.4 %; Lymphocytes # (auto) 0.67 K/uL (1.20-3.40); Lymphocytes % (auto) 3.9 %; Mean Corpuscular Hemoglobin 29.4 pg (25.0-34.0); Mean Corpuscular Hgb Conc 33.8 g/dL (32.0-36.0); Mean Corpuscular Volume 87.1 fL (80.0-100.0); Mean Platelet Volume 10.9 fL (9.4-12.4); Monocytes # (auto) 1.24 K/uL (0.11-0.59); Monocytes % (auto) 7.3 %; Neutrophils # (auto) 14.91 K/uL (1.40-6.50); Neutrophils % (auto) 87.2 %; Platelet Count 155 K/uL (130-400); RDW Standard Deviation 47.5 fL (36.4-46.3); Red Blood Count 4.28 M/uL (4.70-6.10); White Blood Count 17.09 K/ul (4.8-10.8)
[2025-03-01 06:38] LABS: BUN Creatinine Ratio 14.1 (10-20); Calcium 8.4 mg/dl (8.6-10.3); Creatinine Clr Calc Pharmacy 26.3 ml/min; Potassium 5.1 mmol/L (3.5-5.1)
[2025-03-01] MEDS ORDERED: INSULIN ASPART 100 UNITS/ML 3 ML PEN SC SCH (07:30)
--- NOTE | 2025-03-01 07:49 | Orthopedic Progress Note ---
Date of Service March 01, 2025 Assessment & Plan (1) Lumbosacral spondylosis with radiculopathy: Plan: Patient is stable postoperative #1. Recommend her to minimize narcotics. Will continue mobilization efforts and have seen by physical therapy today. Continue with GI DVT prophylaxis and pain control measures. He is likely to be with us throughout the weekend. Admission and Anticipated Discharge Date Admission Date: February 28, 2025 Subjective Patient was seen bedside in room 458. He had a bit of a rough day yesterday. He kept on having difficulties maintaining oxygenation. He does not recall of the events from yesterday but seems to be doing well this morning. He states he has minimal pain going down his legs but some discomfort in his lower back. He does not feel short of breath. He is not nauseous. He denies any other numbness, tingling, or paresthesias. Physical Exam Physical Exam: On exam he is alert and oriented. He is able to move his extremities to gravity. His MAGALIS drain is in place and holding suction. His dressing is clean dry and intact. His abdomen supple and nontender his calves are supple and nontender. Results & Data Vital Signs (Past 12 Hours) Vital Signs Temp Pulse Pulse Resp BP Pulse Ox O2 Del Method 03/01/25 07:42 36.6 C 80 19 169/72 H 93 Nasal Cannula 03/01/25 05:18 36.4 C L 78 17 163/75 H 96 Nasal Cannula 03/01/25 00:05 36.4 C L 74 16 165/77 H 96 Nasal Cannula 02/28/25 23:37 68 02/28/25 19:55 Nasal Cannula O2 Flow Rate 03/01/25 07:42 3 03/01/25 05:18 3 03/01/25 00:05 3 02/28/25 23:37 02/28/25 19:55 3
[2025-03-01] MEDS ORDERED: LOSARTAN POTASSIUM 25 MG TAB PO SCH (09:00)
[2025-03-01] MEDS ORDERED: NON-FORMULARY MEDICATION (Coenzyme Q10 200 mg capsule) PO SCH (09:00)
[2025-03-01] MEDS: INSULIN ASPART PER UNIT CHARGE SC SCH (09:10)
[2025-03-01] MEDS: amLODIPine BESYLATE 5 MG TAB PO SCH (09:10)
[2025-03-01] MEDS: FENOFIBRATE NANOCRYSTALLIZED 145 MG TABLET PO SCH (09:11)
[2025-03-01] MEDS: dexAMETHasone 6 MG in SYRINGE 0 ML IV SCH (09:11)
[2025-03-01] MEDS: LANTUS PER UNIT CHARGE SC SCH ×2 (09:11→21:22)
[2025-03-01] MEDS: ASPIRIN 81 MG ECTAB PO SCH (09:11)
[2025-03-01] MEDS: ASCORBIC ACID 500 MG TAB PO SCH (09:11)
[2025-03-01] MEDS: ISOSORBIDE MONO EXTENDED REL 60 MG TABCR PO SCH (09:11)
[2025-03-01] MEDS: ZINC SULFATE 220 MG CAPSULE PO SCH (09:12)
[2025-03-01] MEDS: LANTUS PER UNIT CHARGE SC ONE (13:01)
--- NOTE | 2025-03-01 14:32 | Pharmacy Report ---
Pharmacy Glycemic Short Note 2 - Date of Service March 01, 2025 - Glycemic Short BSG Results (Last 24 hours): 02/28/25 02/28/25 02/28/25 15:39 17:53 18:14 Glucose 232 H 305 H* POC Glucose 267 H 02/28/25 03/01/25 03/01/25 20:45 00:40 02:09 Glucose 168 H POC Glucose 198 H 153 H 03/01/25 03/01/25 03/01/25 05:32 08:01 11:53 Glucose 168 H POC Glucose 170 H 278 H OUTPATIENT ANTIDIABETIC REGIMEN: * Degludec 100 units SC BID * Lispro 35 units with break & lunch, 45 units with dinner * Semaglutide 1 mg SC once weekly A1c = 6.8% (January 2025) ASSESSMENT: * Ted is a 74yo M with PMH of type II DM, POLO, CAD with PCI, CKD IV who is POD # 1 s/p lumbar decompression and fusion. Patient experienced postop hypercapnic respiratory failure and prolonged sedation. Scr trending up. * He is ordered high dose IV steroids, dexamethasone 6 mg IV daily. Anticipate steroid induced hyperglycemia. * Patient with decent BSG control overnight after receiving reduced dose of Lantus 25 units at HS. Fasting BSG of 170 mg/dL this AM. Trended up to 278 mg/dL at lunch. * Increase basal insulin. Lantus 40 units given with breakfast and lunch. Will start Lantus per BSG scale this evening (max daily dose will be 20% decrease in home dose). Tighten Novolog CF and CR. PLAN FOR INPATIENT GLYCEMIC CONTROL: * Hold outpatient oral diabetes medications * Basal insulin * Lantus 40 units qAM + 40 units at lunch * Start Lantus 60-70-80 SC BID (see eMAR for details) * Bolus insulin * NovoLog per scale ACHS or Q6hrs while NPO * Goal Range: Low 110 mg/dL - High 140 mg/dL * Correction Factor: 12 mg/dL/unit * Nutritional / Prandial insulin per carb ratio of 1 unit per 4 grams CHO consumed
[2025-03-01] MEDS: INSULIN HUMAN REGULAR PER UNIT 10 UNITS in SYRINGE 9.9 ML IV ONE (17:59)
[2025-03-02] MEDS: INSULIN ASPART PER UNIT CHARGE SC SCH (00:04)
[2025-03-02 06:18] LABS: Basophils # (auto) 0.01 K/uL (0.00-0.20); Basophils % (auto) 0.1 %; Hemoglobin 11.2 g/dl (14.0-18.0); Immature Granulocytes # (auto) 0.16 K/uL (0.01-0.20); Lymphocytes # (auto) 0.68 K/uL (1.20-3.40); Lymphocytes % (auto) 4.4 %; Mean Corpuscular Hemoglobin 29.6 pg (25.0-34.0); Mean Corpuscular Hgb Conc 33.9 g/dL (32.0-36.0); Mean Corpuscular Volume 87.1 fL (80.0-100.0); Mean Platelet Volume 10.5 fL (9.4-12.4); Monocytes # (auto) 1.33 K/uL (0.11-0.59); Monocytes % (auto) 8.5 %; Neutrophils # (auto) 13.45 K/uL (1.40-6.50); Platelet Count 102 K/uL (130-400); RDW Coefficient of Variation 14.9 % (11.5-14.5); RDW Standard Deviation 46.8 fL (36.4-46.3); Red Blood Count 3.79 M/uL (4.70-6.10); White Blood Count 15.63 K/ul (4.8-10.8)
[2025-03-02 06:34] LABS: BUN Creatinine Ratio 20.9 (10-20); Calcium 7.7 mg/dl (8.6-10.3); Creatinine Clr Calc Pharmacy 27.6 ml/min; Potassium 4.6 mmol/L (3.5-5.1)
--- NOTE | 2025-03-02 07:47 | Orthopedic Progress Note ---
Date of Service March 02, 2025 Assessment & Plan (1) Lumbosacral spondylosis with radiculopathy: Plan: Patient is steadily making improvements. He is can continue with ambulation and gait training with physical therapy. Will continue with GI DVT prophylaxis and pain control measures. Will see how he does throughout the day today and possibly discharge him to home tomorrow. Admission and Anticipated Discharge Date Admission Date: February 28, 2025 Subjective Patient was seen bedside in room 458. He is resting comfortably this morning. He states he did well yesterday he had been up several times. He still has some soreness in the back itself but not the severe pain that he had just after the surgery. His legs feel better. He denies any other numbness, tingling, or paresthesias. Physical Exam Physical Exam: On exam he is alert and oriented. He answers questions appropriately. His breathing is regular nonlabored. His strength and sensation are both intact his calves are supple and nontender his abdomen soft and nontender. His MAGALIS drain is holding suction is placed out 70 cc on the left shift and 50 previous. Results & Data Vital Signs (Past 12 Hours) Vital Signs Temp Pulse Pulse Resp BP Pulse Ox O2 Del Method 03/02/25 04:05 36.5 C 84 20 160/73 H 91 Nasal Cannula 03/02/25 00:16 36.7 C 89 22 164/73 H 91 Nasal Cannula 03/01/25 21:46 91 H 03/01/25 21:10 Nasal Cannula 03/01/25 20:44 36.9 C 98 H 19 161/76 H 90 Nasal Cannula O2 Flow Rate 03/02/25 04:05 3 03/02/25 00:16 3 03/01/25 21:46 03/01/25 21:10 3 03/01/25 20:44 3
[2025-03-02] MEDS: LANTUS PER UNIT CHARGE SC ONE (08:56)
[2025-03-02] MEDS: oxyCODONE HCL IR 5 MG TAB (IMMEDIATE RELEASE) PO PRN (09:09)
[2025-03-03 07:27] LABS: Basophils # (auto) 0.02 K/uL (0.00-0.20); Basophils % (auto) 0.1 %; Hematocrit (blood only) 30.5 % (42.0-52.0); Hemoglobin 10.2 g/dl (14.0-18.0); Immature Granulocytes # (auto) 0.33 K/uL (0.01-0.20); Immature Granulocytes % (auto) 1.9 %; Lymphocytes % (auto) 4.6 %; Mean Corpuscular Hemoglobin 29.5 pg (25.0-34.0); Mean Corpuscular Hgb Conc 33.4 g/dL (32.0-36.0); Mean Corpuscular Volume 88.2 fL (80.0-100.0); Mean Platelet Volume 11.2 fL (9.4-12.4); Monocytes # (auto) 1.55 K/uL (0.11-0.59); Monocytes % (auto) 8.9 %; Neutrophils # (auto) 14.75 K/uL (1.40-6.50); Neutrophils % (auto) 84.5 %; Platelet Count 106 K/uL (130-400); RDW Coefficient of Variation 15.1 % (11.5-14.5); RDW Standard Deviation 49.1 fL (36.4-46.3); Red Blood Count 3.46 M/uL (4.70-6.10); White Blood Count 17.45 K/ul (4.8-10.8)
[2025-03-03 07:39] LABS: BUN Creatinine Ratio 25.2 (10-20); Calcium 7.3 mg/dl (8.6-10.3); Creatinine Clr Calc Pharmacy 25.4 ml/min; Potassium 4.8 mmol/L (3.5-5.1)
[2025-03-03] MEDS: ERGOCALCIFEROL 1250 MCG (50,000 UNITS) CAP PO SCH (08:31)
--- NOTE | 2025-03-03 11:42 | Orthopedic Progress Note ---
Date of Service March 03, 2025 Assessment & Plan (1) Lumbosacral spondylosis with radiculopathy: Plan: At this time we will continue physical therapy monitor his MAGALIS output most likely discontinue his drain tomorrow. Hopefully his oxygenation will improve and he c an discharge home tomorrow. Admission and Anticipated Discharge Date Admission Date: February 28, 2025 Subjective Patient's back pain is controlled leg symptoms improved. Unfortunately struggling with oxygenation. He is requiring O2. Physical Exam Physical Exam: On exam he is sitting up at the bedside. He is comfortable. Discussed active testing. Results & Data Vital Signs (Past 12 Hours) Vital Signs Temp Pulse Pulse Resp BP Pulse Ox O2 Del Method 03/03/25 11:30 20 90 Oxymask 03/03/25 11:03 36.5 C 88 18 152/74 H 88 L Nasal Cannula 03/03/25 08:09 36.4 C L 84 18 155/74 H 90 Nasal Cannula 03/03/25 08:00 Nasal Cannula 03/03/25 08:00 83 03/03/25 04:32 36.6 C 80 21 148/75 H 88 L Nasal Cannula O2 Flow Rate 03/03/25 11:30 10 03/03/25 11:03 4 03/03/25 08:09 4 03/03/25 08:00 4 03/03/25 08:00 03/03/25 04:32 4 Queries Orthopedic Spine Obesity: Yes
--- NOTE | 2025-03-03 12:37 | XRay Report ---
XR chest 1V portable CLINICAL HISTORY: acute hypoxia COMPARISON STUDY: 02/28/2025 FINDINGS: Stable cardiomegaly with increased pulmonary vascular congestion. Inspiration is shallow. T here is interval patchy opacity at the right lung base. No pleural effusion or pneumothorax. IMPRESSION: 1. Mild CHF. 2. Pneumonia versus atelectasis right lung base. ACT 112: Negative or not required by law. Electronically signed by: Andry Cotto M.D. 03/03/2025 12:35 PM
[2025-03-03 12:52] LABS: Base Excess VBG -4.1 mEq/L; HCO3 VBG 22 mmol/L; PCO2 VBG 44 mmHg (38-50); PO2 VBG 42 mmHg; pH VBG 7.31 (7.36-7.41)
--- NOTE | 2025-03-03 13:04 | Pharmacy Report ---
Pharmacy Glycemic Short Note 2 - Date of Service March 03, 2025 - Glycemic Short BSG Results (Last 24 hours): 03/02/25 03/02/25 03/03/25 16:50 21:10 06:44 Glucose 124 H POC Glucose 210 H 216 H 03/03/25 03/03/25 07:54 11:56 Glucose POC Glucose 105 H 136 H OUTPATIENT ANTIDIABETIC REGIMEN: * Degludec 100 units SC BID * Lispro 35 units with break & lunch, 45 units with dinner * Semaglutide 1 mg SC once weekly A1c = 6.8% (January 2025) ASSESSMENT: 03/03 * Ted received a total of 313 units of insulin yesterday (220 units were basal and 93 units were bolus). BSGs were all above goal despite increased insulin usage. * Fasting BSG today was 105mg/dL. Today is the last day of scheduled dexamethasone so it is expected that insulin needs will decrease as the steroids wear off. Will continue lantus scale (reduced to 40, 60, or 80 units based on BSG) and bolus insulin as previously ordered. Will likely need to loosen bolus insulin parameters tomorrow morning. 03/01 * Ted is a 74yo M with PMH of type II DM, POLO, CAD with PCI, CKD IV who is POD # 1 s/p lumbar decompression and fusion. Patient experienced postop hypercapnic respiratory failure and prolonged sedation. Scr trending up. * He is ordered high dose IV steroids, dexamethasone 6 mg IV daily. Anticipate steroid induced hyperglycemia. * Patient with decent BSG control overnight after receiving reduced dose of Lantus 25 units at HS. Fasting BSG of 170 mg/dL this AM. Trended up to 278 mg/dL at lunch. * Increase basal insulin. Lantus 40 units given with breakfast and lunch. Will start Lantus per BSG scale this evening (max daily dose will be 20% decrease in home dose). Tighten Novolog CF and CR. PLAN FOR INPATIENT GLYCEMIC CONTROL: * Hold outpatient diabetes medications * Basal insulin * Lantus scale (now 40, 60, or 80 units depending on BSG) BID (see eMAR for details) * Bolus insulin * NovoLog per scale ACHS or Q6hrs while NPO * Goal Range: Low 110 mg/dL - High 140 mg/dL * Correction Factor: 10 mg/dL/unit * Nutritional / Prandial insulin per carb ratio of 1 unit per 2.5 grams CHO consumed
[2025-03-03 13:35] LABS: D Dimer 8380 ug/L FEU (0-500)
--- NOTE | 2025-03-03 15:55 | CT Scan Report ---
CT chest diagnostic wo con CT DOSE: 860.66 mGy.cm CLINICAL HISTORY: acute hypoxia. TECHNIQUE: Multiaxial CT images of the chest were performed without contrast. A dose lowering techni que was utilized adhering to the principles of ALARA. COMPARISON STUDY: Chest x-ray earlier today FINDINGS: There are trace bilateral dependent pleural effusions. There is moderate reticular and band like consolidation at the dependent lower lobes bilaterally, pneumonia versus atelectasis. There is c omplete collapse of the right middle lobe with moderate narrowing of the right middle lobe bronchus p roximally and occlusion of some of the smaller right middle lobe bronchi. There is no pneumothorax. T here are diffuse coronary artery calcifications. There is mild cardiomegaly with mild prominence of t he pulmonary vasculature suggesting mild CHF. There is a 2.6 cm oval hypodense finding just left of t he lucas with Hounsfield density of 10, enlarged lymph node versus pericardial recess. No other enla rged adenopathy seen. No acute osseous findings. There are mild thoracic spine degenerative changes. IMPRESSION: 1. Moderate reticular and bandlike consolidation at the dependent lower lobes, pneumonia versus atele ctasis. Trace dependent pleural effusions. 2. Complete atelectasis of the right middle lobe with airway narrowing. 3. Likely mild CHF. 4. Enlarged mediastinal lymph node versus pericardial recess. Follow-up chest CT recommended in 3-6 m [facility] to make sure this finding is not progressive. ACT 112: Positive. There are findings on this exam that require communication between the performing entity and the patient following Patient Test Result Information Act ([place] Act 112) guidelines. Electronically signed by: Andry Cotto M.D. 03/03/2025 3:53 PM
[2025-03-03] MEDS ORDERED: VANCOMYCIN CONSULT ACTIVE PRN (16:23)
[2025-03-03] MEDS ORDERED: VANCOMYCIN HCL 1,000 MG/270 ML BAG IV ONE (16:23)
[2025-03-03] MEDS: PIPERACILLIN/TAZOBACTAM 4.5 GM/100 ML BAG IV ONE (17:05)
[2025-03-03 17:08] LABS: iSTAT Arterial Blood Gas HCO3 21 meg/L (19-24); iSTAT Arterial Blood Gas pCO2 36 mmHg (35-46); iSTAT Arterial Blood Gas pH 7.38 (7.35-7.45); iSTAT Arterial Blood Gas pO2 56 mmHg (80-95); iSTAT Carbon Dioxide 22 mmol/L (24-31); iSTAT Hematocrit 28 % (42-52); iSTAT Hemoglobin 9.5 g/dl (14.0-18.0); iSTAT Potassium 4.5 mmol/L (3.3-5.0); iSTAT Sodium 138 mmol/L (135-144)
[2025-03-03] MEDS: VANCOMYCIN HCL 2,500 MG in SODIUM CHLORIDE 0.9% 500 ML IV ONE (17:33)
--- NOTE | 2025-03-03 18:35 | Electrocardiogram Report ---
Test Reason : Blood Pressure : */* mmHG Vent. Rate : 89 BPM Atrial Rate : 89 BPM P-R Int : 186 ms QRS Dur : 98 ms QT Int : 358 ms P-R-T Axes : 50 -4 32 degrees QTcB Int : 435 ms Normal sinus rhythm Minimal voltage criteria for LVH, may be normal variant Anteroseptal infarct (cited on or before 13-Jul-2016) Abnormal ECG When compared with ECG of 28-Feb-2025 14:28, Premature atrial complexes are no longer Present Confirmed by Hussein Bruno ([id number]) on 03/03/2025 6:35:07 PM Referred By: Kirk Saleh Confirmed By: Hussein Bruno
--- NOTE | 2025-03-03 19:44 | Nuclear Medicine Report ---
EXAM: NM pul perfusion CLINICAL HISTORY: acute hypoxia TECHNIQUE: 4.8 mCi MAA COMPARISON: none FINDINGS: The perfusion scan shows no defects to suggest a PE. Uniform uptake seen in both lungs. IMPRESSION: Low probability of PE. Electronically signed by Álvaro Infante 03-03-2025 7:44 PM
--- NOTE | 2025-03-03 19:46 | Hospitalist Progress Note ---
Date of Service March 03, 2025 Assessment & Plan (1) Acute on chronic respiratory failure with hypoxia and hypercapnia: Plan: 74 years old male with PMH of FULL CODE @ home, obesity with BMI 32.0 (height 185.4 cm; weight 110.0 kg), normocytic, normochromic anemia with historical Hb 13.4 g/dL, MCV 85.0, MCHC 34.2 (02/14/2025, 11:07am), CKD stage III with baseline creatinine range, 2.0 - 2.4 mg/dL (10/05/2020 - 05/30/2024), started on Farxiga 10mg PO daily (06/07/2024, Renal Dr. Priti Collins) to mitigate further microalbuminuria, DM2, HTN, CAD s/p cardiac catheterization (12/11/2023) with two vessel disease, ostial LAD 100% occluded (culprit lesion), proximal D1 90% stenosis, small caliber RPDA ostium 70% stenosis, successful PCI of ostial to proximal LAD with 4.0 mm x 18 mm Xience drug-eluting stent, post- dilated to 4.0 mm with NC balloon, and succesful PCI of proximal D1 with 2.25 mm x 15 mm Xience drug-eluting stent ([facility] CARDS Dr. Paulina Kidd), chronic systolic CHF with reduced LVEF 40-45% (as noted on 01/23/2025, 2:20pm pre-op/medical clearance outpatient TTE, CARDS Dr. Fadi Fan), chronic diastolic CHF with grade I LV diastolic dysfunction (as noted on 01/23/2025, 2:20pm pre-op/medical clearance outpatient TTE, CARDS Dr. Fadi Fan), who was admitted to the Spine Surgery Service of Dr. Kirk Saleh on 02/28/2025 with complaints of "chronic persistent back and leg pain and failing course of nonoperative care is here for surgical invention." Patient subsequently underwent on 02/28/2025, 12:21pm the following procedures with Spine Surgeon Dr. Kirk Saleh: #1 lumbar decompression with bilateral facetectomies and foraminotomies L3-L4, L4-5 and L5-S1. #2 posterior spinal fusion L4-S1. #3 placed posterior instrumentation L4-S1 using camber. #4 interbody fusion L4-5 L5-S1. #5 posterior spinal fusion by 16 by 26 mm x 2 at L4-5 and 17 x 26 mm x 2 at L5- S1. #6 post locally harvested morselized autograft in the posterior gutters. #7 please infuse collagen sponge, with Koros in the posterior gutters and os design interbody space. #8 application of versa wrap over the exposed dura. Patient felt well with no complaints and was working with Physical Therapy on 03/03/2025 with anticipated D/C back to home on 03/03/2025 when patient was noted to become acutely hypoxic while working with Physical Therapy on 03/03/2025 with mild/minimal complaint of SOB/RIBEIRO, and no cough, wheeze, pleurisy, chest pain/chest tightness, paroxysmal nocturnal dyspnea, orthopnea, platypnea, weight gain, fevers, chills, diaphoresis, N/V/D, abdominal pain, pel jami pain, etc. Patient was subsequently diagnosed on 03/03/2025 with the following conditions: 1. Acute hypoxemic and hypercapnic respiratory failure (due to acute RLL HAP), dgqdcwohuwjs-vy-thrwney hypoxemic and hypercapnic respiratory failure (due to a combination of obesity with BMI 32.0 (height 185.4 cm; weight 110.0 kg), ogfetpjp-dhsqn-wigzmkzw diagnosed POLO, and amhotkmy-nyist-qlhczoej diagnosed obesity hypoventilation syndrome). 2. Acute exacerbation of chronic systolic CHF with reduced LVEF 40-45% (as noted on 01/23/2025, 2:20pm pre-op/medical clearance outpatient TTE, CARDS Dr. Fadi Fan), chronic diastolic CHF with grade I LV diastolic dysfunction (as noted on 01/23/2025, 2:20pm pre-op/medical clearance outpatient TTE, CARDS Dr. Fadi Fan). 3. Acute kidney injury with admission creatinine 2.77 mg/dL (02/28/2025, 3:39pm) increasing to creatinine 3.22 mg/dL (03/03/2025, 6:44am), superimposed on CKD stage III with baseline creatinine range, 2.0 - 2.4 (10/05/2020 - 05/30/2024). 4. Acute type II NSTEMI with nominal troponin elevation with troponin-I #1 28.5 pg/mL (03/03/2025, 2:16pm). 5. Acute thrombocytopenia with admission platelet count 155 (03/01/2025, 5:32am) decreasing to 102 (03/02/2025, 5:51am) to 106 (03/03/2025, 6:44am). To address #1, patient was started on vancomycin 2.5g IV x 1 dose (03/03/2025, 5:33pm), zosyn 4.5g IV x 1 dose (03/03/2025, 5:05pm). Patient will continue with vancomycin (as per pharmacy-directed vancomycin dosing, day #1/5 on 03/04/2025 am) and zosyn 4.5g IV q12 (day #1 on 03/04/2025, 5:05am) to treat acute RLL HAP. To address obesity with BMI 32.0 (height 185.4 cm; weight 110.0 kg), patient was advised to modify his diet, exercise, and/or lifestyle after making a full recovery from his surgical procedures (02/28/2025, 12:21pm) noted above. To address presumed-but never formally diagnosed POLO and obesity hypoventilation syndrome, patient was started on CPAP with 10cm H2O and FIO2 = 0.60. I will check MRSA nares swab (03/03/2025, 9:12pm) and if negative, I will discontinue further vancomycin dosing in order to avoid further renal embarrassment from continued/unneeded vancomycin dosing if MRSA nares swab is negative. I will also check BIOFIRE respiratory panel (03/03/2025, 9:12pm) for coincident acute viral infection/syndrome, which I doubt given the absence of cough and catarrh in this patient. I will also check vitals, chest exam, WBC w/diff, lactic acid, and procalcitonin levels in the 03/04/2025 am. To address #2, patient was started on 2 gram Na diet, daily weights, strict I/O, and continued on his home-scheduled amlodipine 10mg PO qam, home-scheduled carvedilol 25mg PO bid, and home-scheduled isosorbide mononitrate 60mg PO qam, while continuing to hold off his home-scheduled losartan 25mg PO qam in order to prevent further renal embarrassment. At the same time, I have opted to hold OFF further IV fluid rehydration as patient has already received lactated Ringers @ 125 mL/hr (start date/time, 02/28/2025, 8:22am; through 03/03/2025, 10:36am), which, in sum, may have contributed to the patient's gain in weight from 104.8 kg (as reported on 01/23/2025, 2:20pm TTE, [facility] CARDS Dr. Fadi Fan) to 110.0 kg (02/28/2025, 8:07am) to 118.6 kg (03/03/2025, 8:55pm)(bed weight scale, not standing scale). Hence, I cannot be too certain regarding the accuracy of any of these weights and have requested a standing weight on 03/03/2025, 8:59pm, in this patient who reports a dry baseline weight of 236 - 240 pounds (cf., 107.3 kg - 109.0 kg) at home. Of note, etiology of acute exacerbation of chronic systolic/diastolic CHF is due to acute hypoxemic and hypercapnic respiratory failure (due to acute RLL HAP). To address #3, patient continues to be held off his home-scheduled losartan 25mg PO qam in order to prevent further renal embarrassment. Patient continues to receive his home-scheduled ASA 81mg PO daily to provide secondary prophylaxis against CAD, despite the potential for this medication to cause further declines in renal function. Of note, etiology of acute kidney injury remains unclear, but is probably due to hypoperfusion of renal parenchyma, which is due to a combination of (a) acute hypoxemic and hypercapnic respiratory failure (due to acute RLL HAP) and (b) acute exacerbation of chronic systolic/diastolic CHF. In contrast, etiology of CKD stage III is due to a combination of (a) HTN and (b) DM. I will check repeat creatinine level in the 03/04/2025 am. To address #4, patient continues on telemetry, but I have not started patient on heparin infusion given the low clinical index of suspicion for acute type I NSTEMI. Of note, etiology of nominal troponin elevation is attributed to demand ischemia, which in turn, is due to #1, #2, and #3 above. Hence, I have opted to observe this laboratory anomaly without further testing of troponin-I levels or evaluation of cardiac performance utilizing TTE given proximity of patient's most recent 01/23/2025, 2:20pm pre-op/medical clearance outpatient TTE, CARDS Dr. Fadi Fan). To address #5, patient continues to receive his home-scheduled ASA 81mg PO daily to provide secondary prophylaxis against CAD, despite the potential for this medication to cause further declines in platelet count. Of note, etiology of acute thrombocytopenia remains unclear. Patient reports no mucosal bleeding despite the decline in platelet count noted above. I will check repeat platelet count in the 03/04/2025 am. (2) HAP (hospital-acquired pneumonia): Plan: See bullet #1 above for details. (3) Acute kidney failure: Plan: See bullet #1 above for details. (4) Chronic renal disease, stage 4, severely decreased glomerular filtration rate (GFR) between 15-29 mL/min/1.73 square meter: Plan: See bullet #1 above for details. (5) Hypercapnic respiratory failure: Plan: Hypercapnic respiratory failure 2/2 POLO, narcosis, anesthesia Continue BiPAP target tidal volume 450-600cc VBG pH 7.1/pCO2 67. Repeat with adjustment of head position and BiPAP adjustment and improved vitals 7.24/55. Patient was given Narcan with some improvement. Likely due to sedation and severe POLO. Patient was on 10/01 with volumes of [id number]. 14/ 400/500. No significant air leak. Following adjustment of head position with some neck extension and jaw left greatly improved, 500-600 cc at /10. Positive pressure ventilation limitation due to POLO/obstruction. Alertness improving, patient maintaining tidal volumes with improved alertness Continue BiPAP Will repeat ABG in 30-60 minutes and follow on PCU Repeat ABG at 1630: pH 7.31/pCO2 45/pO2 166 Altered mental status Suspect due to hypercapnic respiratory failure, some narcosis Improving with BiPAP and post Narcan Reportedly did have some hypotension intraoperatively and required 7 mg of sayra-/10 mg vasopressin. No prolonged hypotension. EKG without acute ischemic changes Type II DM Ozempic held while inpatient Continue basal bolus insulin while admitted Patient is with very high insulin requirements, on degludec 120 units twice daily outpatient - Weight-based requirements would be 10 units Lantus twice daily, CF 40, carb ratio 15. Home requirements 120 units twice daily of basal alone with a CF 5/carb ratio of 1. Last endocrine note 01/2025 reviewed. Does confirm Tresiba 120 units twice daily, NovoLog 35-40 unit with meal requirement. Did review with pharmacy. If patient was compliant then would recommend 80 units twice daily, CF 10/CR 3. If patient has questionable compliance then would recommend Lantus 25 units twice daily, CF 15/CR 5. Given altered mental status and high risk of hypoglycemia we will treat with Lantus 25 units twice daily, goal range [id number], CF 15, CR 5 at this time. Glycemic consult will follow for close management. If patient is able to confirm compliance then suggest switch to Lantus units t wice daily, NovoLog [id number] goal, CF 10/CR 3. Appreciate pharmacy review and recommendations Goal BSG [id number] CAD, history of PCI, EF 40% Past PCI more than 1 year ago Previously on aspirin/Brilinta Resume at least aspirin therapy when okay per surgical team. Would do this as soon as possible for stent protection Continue isosorbide, losartan, atorvastatin CKD 4 Creatinine approximately 22.4 BMP pending Renally dose medications as needed Hyperkalemia Xvnyd-pu-jdoh potassium elevated at 5.9. This was in the setting of acute severe acidosis due to hypercapnic respiratory failure BMP pending - Acidosis is improving on ABG recheck, BMP with potassium of 6.0 EKG: NSR, increased slightly peaked appearance of precordial T waves Calcium gluconate x 1 ordered, insulin dextrose x 1 ordered. LR rate increased to 150. Still has a low potassium relative to his plasma, and he is both acidotic and hyperchloremic. LR likely to benefit both acidosis and hyperkalemia over saline. repeat ABG with improving acidosis. pH trended. If potassium is persistently elevated on next check then will add Lokelma if mentation improved. DVT prophylaxis: Per primary team CODE STATUS: Full code Disposition: PCU Diet: Heart healthy/DM2 (6) T2DM (type 2 diabetes mellitus): (7) Hypertension: (8) Dyslipidemia: (9) CAD (coronary atherosclerotic disease): Admission and Anticipated Discharge Date Admission Date: February 28, 2025 Subjective "I feel a little short of breath. Not coughing or wheezing. No sore throat. No chest pain. Doesn't hurt if I breathe in or out. No fevers or chills. I was working with Physical Therapy to see if I could go home today, and the nurse said that my oxygen level was going low. I don't know why." Review of Systems Constitutional: Positive for mild shortness of breath. Negative for antecedent/coincident fevers, chills, diaphoresis, cough, wheeze, sore throat, hemoptysis, chest pains, palpitations, pleurisy, nausea, vomiting, diarrhea, abdominal pain, pelvic pain, hematemesis, hematochezia, melena, hematuria, dysuria, frequency, urgency, headaches, dizziness, lightheadedness, visual changes, hearing changes, weakness, falls, trauma, syncope, travel history, sick contacts, or food/drug ingestions novel or new. All other review of systems are reported as negative by the patient on 03/03/2025. Physical Exam Constitutional: General: Comfortable, coherent, cooperative. Wide awake and alert. Not confused, lethargic, or obtunded. Patient speaks in complete, fluent, and articulate sentences without pause, interruption, cough, or wheeze. HEENT: Normocephalic, atraumatic. PERRL. EOMI. No nystagmus, gaze paresis, anisocoria, miosis, mydriasis, hyphema, scleral injection, conjunctivitis, or pterygium. No otorrhea or rhinorrhea. No pharyngeal erythema, edema, or discharge. Neck: Supple, no stridor, bruit, goiter, or hepato-jugular reflux. Jugular venous pressure is estimated to be 3 cm above the sternal angle of Hardy, which in turn, is 5 cm above the level of the right atrium; with jugular venous pressure estimated to be 8 cm, then, there is no jugular venous distention on 03/03/2025. Lymphatics: No cervical (anterior/posterior), supraclavicular, inf raclavicular, axillary, epitrochlear, or inguinal adenopathy. Chest: Symmetric rise and fall with respirations. Non-tender to palpation. Lungs: Coarse breath sounds bilaterally. No audible expiratory wheeze, egophony, pectoriloquy, increase in tactile fremitus, or flatness/dullness to percussion at the bases. Heart: Regular rate and rhythm. S1 and S2 noted. No S3 or S4 summation gallop. No tripartite friction rub. Grade II/ early systolic murmur @ LLSB without radiation to the carotids, axilla, or back, and which remains invariant in regards to the respiratory cycle. Abdomen: Soft, non-tender, non-distended. No rebound, guarding, Mars's sign, or organomegaly. Bowel sounds auscultated in all 4 quadrants. Extremities: No clubbing, cyanosis, or edema. 2+ pedal pulses bilaterally. Skin: No decubitus ulcer, exanthem, or enanthem. Genito-urinary: No urethral discharge. No azevedo catheter. Neurology: Alert and oriented in regards to person, place, time, and situation. DTR+ and symmetric. 5/5 motor strength in all 4 extremities, both proximally and distally. No pronator drift. No facial droop. No dysarthria. Psychiatry: No homicidal ideation. No suicidal ideation. No flat affect; smiles appropriately. Results & Data Results & Data Vital Signs (Past 12 Hours) Vital Signs Temp Pulse Pulse Resp BP Pulse Ox O2 Del Method 03/03/25 19:38 36.2 C L 83 20 153/68 H 96 CPAP 03/03/25 18:38 86 23 95 03/03/25 16:59 91 H 03/03/25 16:50 82 20 96 03/03/25 15:56 36.7 C 90 18 135/69 86 L Oxymask 03/03/25 11:30 20 90 Oxymask 03/03/25 11:03 36.5 C 88 18 152/74 H 88 L Nasal Cannula 03/03/25 08:09 36.4 C L 84 18 155/74 H 90 Nasal Cannula 03/03/25 08:00 Nasal Cannula 03/03/25 08:00 83 O2 Flow Rate FiO2 03/03/25 19:38 60 03/03/25 18:38 60 03/03/25 16:59 03/03/25 16:50 60 03/03/25 15:56 10 03/03/25 11:30 10 03/03/25 11:03 4 03/03/25 08:09 4 03/03/25 08:00 4 03/03/25 08:00 Laboratory Results WBC 17.09, N87 L4 M7, Hb 12.6, MCV 87.1, MCHC 33.8, platelet 155 (03/01/2025, 5:32am). WBC 15.63, N86 L4 M9, Hb 11.2, MCV 87.1, MCHC 33.9, platelet 102 (03/02/2025, 5:51am). WBC 17.45, N85 L5 M9, Hb 10.2, MCV 88.2, MCHC 33.4, platelet 106 (03/03/2025, 6:44am). Procalcitonin 0.57 ng/mL (03/03/2025, 1:59pm). Lactic acid 1.3 mmol/L (03/03/2025, 1:59pm). VBG 7.31 / 44 / 42 / 22 / O2 sat 72% on FIO2 = 0.21 (03/03/2025, 12:43pm). ABG 7.38 / 36 / 56 / 21 / O2 sat 89% on FIO2 = 0.60 (03/03/2025, 4:36pm). Na 140, K 5.1, BUN 44, creatinine 3.11, GFR 20.0, glucose 168, anion gap 8, CO2 26 (03/01/2025, 5:32am). Na 139, K 4.6, BUN 62, creatinine 2.96, GFR 21.2, glucose 194, anion gap 6, CO2 27 (03/02/2025, 5:51am). Na 139, K 4.8, BUN 81, creatinine 3.22, GFR 19.2, glucose 124, anion gap 5, CO2 28 (03/03/2025, 6:44am). Troponin-I #1 28.5 pg/mL (03/03/2025, 2:16pm). BNP 261 pg/mL (03/03/2025, 2:16pm). Diagnostic Findings Portable CXR (02/28/2025, 4:25pm): No infiltrate, effusion, cardiomegaly, pulmonary vascular congestion, or pneumothorax (by my review). Portable CXR (03/03/2025, 12:16pm): RLL infiltrate. Cardiomegaly with mild pulmonary vascular congestion. No effusion or pneumothorax (by my review). CT chest without contrast (03/03/2025, 3:37pm): 1. Moderate reticular and bandlike consolidation at the dependent lower lobes, pneumonia versus atelectasis. Trace dependent pleural effusions. 2. Complete atelectasis of the right middle lobe with airway narrowing. 3. Likely mild CHF. 4. Enlarged mediastinal lymph node versus pericardial recess. Follow-up chest CT recommended in 3-6 months to make sure this finding is not progressive. VQ scan (03/03/2025, 3:38pm): Low probability of PE. EKG #1 (03/03/2025, 2:20pm): NSR @ 89, [place] 186, QTC 435, no acute ST depressions/elevations (by my review). Historical testing includes: TTE (01/23/2025, 2:20pm, height 185.4 cm; weight 104.8 kg): 1. LVEF 40-45%. Mid-inferoseptum, apical lateral wall and apical septum mildly hypokinetic. Remaining segments are normal. Mildly dilated LV. 2. RV size and thickness normal. RV systolic function normal. 3. LA size mildly enlarged with LA volume index of 29mL/m2. 4. RA size normal with area 19.2 cm2. 5. PA size normal. 6. Aortic root size normal. 7. Ascending aorta normal @ 3.6 cm. 8. AV normal. 9. MV normal with mild MR. 10.TV normal with trace TR. 11.PV normal with trace [place]. 12.No pericardial effusion. 13.Normal IVC diameter. 14.Impaired relaxation consistent with diastolic dysfunction grade I. (as per [facility] CARDS Dr. Fadi Fan). PG Care Time/CCT Total # of Minutes Spent Total Time Spent with Patient: Total time spent is greater than 50% in coordination of care (as documented) at patient's floor/unit and/or counseling patient: Coding Level of Care Code 39399 SUB INP/OBS CARE 3/50MIN Diagnoses Acute on chronic respiratory failure with hypoxia and hypercapnia J96.21; J96.22 HAP (hospital-acquired pneumonia) J18.9; Y95 Acute kidney failure N17.9 Chronic renal disease, stage 4, severely decreased glomerular filtration rate (GFR) between 15-29 mL/min/1.73 square meter N18.4 Hypercapnic respiratory failure J96.92 Type 2 diabetes mellitus with diabetic nephropathy, with long-term current use of insulin E11.21; Z79.4 Diabetes mellitus complication detail: with nephropathy Diabetes mellitus complication status: with kidney complications Diabetes mellitus medical terminologist insulin use: with custodial use Primary hypertension I10 Hypertension type: primary hypertension Dyslipidemia E78.5 Atherosclerosis of [place] coronary artery of [place] heart with other form of angina pectoris I25.118 Associated angina: with other forms of angina Coronary Disease-Associated Artery/Lesion type: [place] artery Ruby vs. transplanted heart: [place] heart (6) T2DM (type 2 diabetes mellitus) Diabetes mellitus complication detail: with nephropathy Diabetes mellitus complication status: with kidney complications Diabetes mellitus medical terminologist insulin use: with custodial use Qualified Code(s): E11.21 - Type 2 diabetes mellitus with diabetic nephropathy; Z79.4 - rn long term care (current) use of insulin (7) Hypertension Hypertension type: primary hypertension Qualified Code(s): I10 - Essential (primary) hypertension (9) CAD (coronary atherosclerotic disease) Associated angina: with other forms of angina Coronary Disease-Associated Artery/Lesion type: [place] artery Ruby vs. transplanted heart: [place] heart Qualified Code(s): I25.118 - Atherosclerotic heart disease of [place] coronary artery with other forms of angina pectoris
[2025-03-04] MEDS: PIPERACILLIN/TAZOBACTAM 4.5 GM/100 ML BAG IV SCH ×2 (01:55→18:30)
[2025-03-04 04:04] LABS: Adenovirus PCR Not Detected (NotDetected); Bordetella parapertussis PCR Not Detected (NotDetected); Bordetella pertussis PCR Not Detected (NotDetected); Chlamydia pneumoniae PCR Not Detected (NotDetected); Coronavirus 229E PCR Not Detected (NotDetected); Coronavirus CoV-2 (COVID19)PCR Not Detected (NotDetected); Coronavirus HKU1 PCR Not Detected (NotDetected); Coronavirus NL63 PCR Not Detected (NotDetected); Coronavirus OC43PCR Not Detected (NotDetected); Human Metapneumovirus PCR Not Detected (NotDetected); Influenza A PCR Not Detected (NotDetected); Influenza B PCR Not Detected (NotDetected); Mycoplasma pneumoniae PCR Not Detected (NotDetected); Parainfluenza Virus 1 PCR Not Detected (NotDetected); Parainfluenza Virus 2 PCR Not Detected (NotDetected); Parainfluenza Virus 3 PCR Not Detected (NotDetected); Parainfluenza Virus 4 PCR Not Detected (NotDetected); Respiratory Syncytial VirusPCR Not Detected (NotDetected); Rhinovirus/Enterovirus PCR Not Detected (NotDetected)
[2025-03-04 05:48] LABS: Basophils # (auto) 0.02 K/uL (0.00-0.20); Basophils % (auto) 0.1 %; Eosinophils # (auto) 0.01 K/uL (0.00-0.50); Eosinophils % (auto) 0.1 %; Hematocrit (blood only) 29.5 % (42.0-52.0); Immature Granulocytes % (auto) 1.8 %; Lymphocytes # (auto) 0.69 K/uL (1.20-3.40); Lymphocytes % (auto) 4.2 %; Mean Corpuscular Hemoglobin 29.3 pg (25.0-34.0); Mean Corpuscular Hgb Conc 33.9 g/dL (32.0-36.0); Mean Corpuscular Volume 86.5 fL (80.0-100.0); Mean Platelet Volume 10.8 fL (9.4-12.4); Monocytes % (auto) 7.9 %; Neutrophils # (auto) 14.14 K/uL (1.40-6.50); Neutrophils % (auto) 85.9 %; Platelet Count 106 K/uL (130-400); RDW Standard Deviation 47.1 fL (36.4-46.3); Red Blood Count 3.41 M/uL (4.70-6.10); White Blood Count 16.46 K/ul (4.8-10.8)
[2025-03-04 06:03] LABS: BUN Creatinine Ratio 27.2 (10-20); Calcium 7.2 mg/dl (8.6-10.3); Creatinine Clr Calc Pharmacy 25.4 ml/min; Potassium 4.5 mmol/L (3.5-5.1)
--- NOTE | 2025-03-04 07:53 | Hospitalist Progress Note ---
Date of Service March 04, 2025 Assessment & Plan (1) Acute on chronic respiratory failure with hypoxia and hypercapnia: Plan: 74 years old male with PMH of , normocytic, normochromic anemia with historical Hb 13.4 g/dL, MCV 85.0, MCHC 34.2 (02/14/2025, 11:07am), CKD stage III with baseline creatinine range, 2.0 - 2.4 mg/dL (10/05/2020 - 05/30/2024), started on Farxiga 10mg PO daily (06/07/2024, Renal Dr. Priti Collins) to mitigate further microalbuminuria, DM2, HTN, CAD s/p cardiac catheterization (12/11/2023) with two vessel disease, ostial LAD 100% occluded (culprit lesion), proximal D1 90% stenosis, small caliber RPDA ostium 70% stenosis, successful PCI of ostial to proximal LAD with drug-eluting stent, chronic systolic CHF with reduced LVEF 40-45% (as noted on 01/23/2025, 2:20pm pre-op/medical clearance outpatient TTE, CARDS Dr. Fadi Fan), chronic diastolic CHF with grade I LV diastolic dysfunction (as noted on 01/23/2025, 2:20pm pre-op/medical clearance outpatient TTE, CARDS Dr. Fadi Fan), who was admitted to the Spine Surgery Service of Dr. Kirk Saleh on 02/28/2025 with complaints of "chronic persistent back and leg pain and failing course of nonoperative care is here for surgical invention." 02/28/2025, 12:21pm the following procedures with Spine Surgeon Dr. Kirk Saleh: #1 lumbar decompression with bilateral facetectomies and foraminotomies L3-L4, L4-5 and L5-S1. posterior spinal fusion L4-S1. interbody fusion L4-5 L5-S1. Patient felt well with no complaints and was working with Physical Therapy on 03/03/2025 with anticipated D/C back to home on 03/03/2025 when patient was noted to become acutely hypoxic while working with Physical Therapy on 03/03/2025 with mild/minimal complaint of SOB/RIBEIRO, and no cough, wheeze, pleurisy, chest pain/chest tightness, paroxysmal nocturnal dyspnea, orthopnea, platypnea, weight gain, fevers, chills, diaphoresis, N/V/D, abdominal pain, pelvic pain, etc. # Acute hypoxemic and hypercapnic respiratory failure (due to acute RLL HAP), Started on Zosyn and Vancomycin, MRSA nares were negative and vanco stopped but developed suellen on ckd # , continue antibiotic treatment for pneumonia #Acute exacerbation of chronic systolic/diastolic CHF with reduced LVEF 40-45%, losartan stopped respiratory status unclear, continue carvedilol and isosorbide #Acute kidney injury with CKD stage III with baseline creatinine range, 2.0 - 2.4 CR has risen, stopped ARB, did have vanco load, will check ua for active sediment and renal us, attempt small volume IVF, if not improving may be renal involved potassium and bicarb are ok suggesting maybe atn from perioperative volume shifts #troponin elevation with troponin-I #1 28.5 pg/mL (03/03/2025, 2:16pm). not suspecting acs demand ischemia #Acute thrombocytopenia with admission platelet count 155 (03/01/2025, 5:32am) decreasing to 102 (03/02/2025, 5:51am) to 106 (03/03/2025, 6:44am). (2) HAP (hospital-acquired pneumonia): (3) Acute kidney failure: (4) Chronic renal disease, stage 4, severely decreased glomerular filtration rate (GFR) between 15-29 mL/min/1.73 square meter: (5) Hypercapnic respiratory failure: (6) T2DM (type 2 diabetes mellitus): (7) Hypertension: (8) Dyslipidemia: (9) CAD (coronary atherosclerotic disease): Admission and Anticipated Discharge Date Admission Date: February 28, 2025 Subjective pt feels well but remains on high oxygen need, NIPPV at times. cough of yellow mucus, CT non con and V/Q scan with pneumonia but low prob PE Physical Exam Physical Exam: pleasant does not seem with significant RIBEIRO cardiac is regular lungs are clear le with good distal strength and sensation Results & Data Results & Data Vital Signs (Past 12 Hours) Vital Signs Temp Pulse Pulse Resp BP Pulse Ox O2 Del Method 03/04/25 07:21 75 03/04/25 03:35 97.9 F 81 20 153/68 H 91 CPAP 03/04/25 03:16 72 18 96 03/03/25 23:39 97.7 F 75 16 148/75 H 95 CPAP 03/03/25 21:41 81 03/03/25 20:30 76 21 97 FiO2 03/04/25 07:21 03/04/25 03:35 60 03/04/25 03:16 30 03/03/25 23:39 40 03/03/25 21:41 03/03/25 20:30 40 Laboratory Results review cbc review chemistry PG Care Time/CCT Total # of Minutes Spent Total Time Spent with Patient: Total time spent is greater than 50% in coordination of care (as documented) at patient's floor/unit and/or counseling patient: Coding Level of Care Code 79298 SUB INP/OBS CARE 3/50MIN Diagnoses Acute on chronic respiratory failure with hypoxia and hypercapnia J96.21; J96.22 HAP (hospital-acquired pneumonia) J18.9; Y95 Acute kidney failure N17.9 Chronic renal disease, stage 4, severely decreased glomerular filtration rate (GFR) between 15-29 mL/min/1.73 square meter N18.4 Hypercapnic respiratory failure J96.92 Type 2 diabetes mellitus with diabetic nephropathy, with long-term current use of insulin E11.21; Z79.4 Diabetes mellitus complication detail: with nephropathy Diabetes mellitus complication status: with kidney complications Diabetes mellitus assisted insulin use: with watermelon inspector use Primary hypertension I10 Hypertension type: primary hypertension Dyslipidemia E78.5 Atherosclerosis of [place] coronary artery of [place] heart with other form of angina pectoris I25.118 Associated angina: with other forms of angina Coronary Disease-Associated Artery/Lesion type: [place] artery [place] vs. transplanted heart: [place] heart (6) T2DM (type 2 diabetes mellitus) Diabetes mellitus complication detail: with nephropathy Diabetes mellitus complication status: with kidney complications Diabetes mellitus assisted insulin use: with assisted use Qualified Code(s): E11.21 - Type 2 diabetes mellitus with diabetic nephropathy; Z79.4 - watermelon inspector (current) use of insulin (7) Hypertension Hypertension type: primary hypertension Qualified Code(s): I10 - Essential (primary) hypertension (9) CAD (coronary atherosclerotic disease) Associated angina: with other forms of angina Coronary Disease-Associated Artery/Lesion type: [place] artery [place] vs. transplanted heart: [place] heart Qualified Code(s): I25.118 - Atherosclerotic heart disease of [place] coronary artery with other forms of angina pectoris
--- NOTE | 2025-03-04 09:01 | Ultrasound Report ---
RENAL ULTRASOUND HISTORY: renal failure COMPARISON: 11/18/2009 FINDINGS: Right kidney measures 11 x 5 cm. There is no hydronephrosis. There is Doppler flow. There i s a 1.3 cm cyst at the upper pole. There is mild renal cortical thinning. There is a possible tiny ca lculus lower pole. Left kidney measures 12 x 6 cm. There is no hydronephrosis. There is Doppler flow. There is mild hieu l cortical thinning. No renal calculi seen. Urinary bladder is grossly unremarkable. IMPRESSION: No hydronephrosis. ACT 112: Negative or not required by law. Electronically signed by: Andry Cotto M.D. 03/04/2025 8:59 AM
[2025-03-04] MEDS: LACTATED RINGER'S 1,000 ML IV SCH (09:10)
[2025-03-04 09:58] LABS: Appearance Urine Clear (Clear); Bacteria Urine Automated None Seen (None Seen); Bilirubin Urine Negative (Negative); Blood Urine Negative (Negative); Cast Urine Automated 0-2 /lpf (0-2); Color Urine Yellow; Epithelial Cell Urine Auto 0-2 /hpf (0-2); Glucose Urine UA Negative (Negative); Ketones Urine Negative (Negative); Leukocyte Esterase Urine Negative (Negative); Nitrite Urine Negative (Negative); Protein Urine 2+ (Negative); RBC Urine Automated 0-2 /hpf (0-2); Specific Gravity Urine 1.017 (1.000-1.030); Urobilinogen Urine Negative (Negative); WBC Urine Automated 0-5 /hpf (0-5)
[2025-03-04] MEDS: VANCOMYCIN HCL 1,000 MG/270 ML BAG IV ONE (10:00)
--- NOTE | 2025-03-04 11:06 | Pharmacy Report ---
Pharmacy PK ABX Note - Date of Service March 04, 2025 - Assessment and Plan Assessment * 74 year old M receiving vancomycin and Zosyn for treatment of acute hypoxemic and hypercapnic respiratory failure (due to acute RLL HAP). * Pertinent microbiologic data includes: Negative MRSA Nasal Swab, negative respiratory biofire. * pt with CKD IV. Baseline SCr 2-2.4. Today is 3.34mg/dL * Patient with leukocytosis, procal 0.52, afebrile. Day # 2 of antimicrobial therapy. Plan Vancomycin * Loading dose: 2500 mg IV x 1 on 03/03 * Further dosing will be based on daily vancomycin levels for now due to renal function. * Vanco level drawn with AM labs today was 16.4mcg/mL. Vancomycin 1gm iv x 1 was ordered to be given at 1000 today * Next random level ordered for tomorrow with morning labs Pharmacy will continue to follow and will adjust dose/frequency as necessary. Thank you. Pharmacy has transitioned to AUC monitoring for vancomycin. AUC/NELSY is the preferred PK/PD target and is associated with decreased risk of nephrotoxicity compared to traditional trough targets.
--- NOTE | 2025-03-04 13:58 | Orthopedic Progress Note ---
Date of Service March 04, 2025 Assessment & Plan (1) Lumbosacral spondylosis with radiculopathy: Plan: At this time we will continue physical therapy as tolerated. Will wait assessment from medicine for final disposition. Admission and Anticipated Discharge Date Admission Date: February 28, 2025 Subjective Patient states his shortness of breath has improved. He is back pain is controlled. Has no leg pain. Physical Exam Physical Exam: Patient is currently in bed appears comfortable. Is neurologically intact. Results & Data Vital Signs (Past 12 Hours) Vital Signs Temp Pulse Pulse Resp BP Pulse Ox O2 Del Method 03/04/25 13:06 21 92 03/04/25 12:18 36.6 C 86 18 149/74 H 90 BiPAP 03/04/25 08:02 36.8 C 78 18 145/76 H 91 High Flow Nasal Cannula 03/04/25 08:00 Oxymask 03/04/25 07:21 75 03/04/25 03:35 36.6 C 81 20 153/68 H 91 CPAP 03/04/25 03:16 72 18 96 O2 Flow Rate FiO2 03/04/25 13:06 40 03/04/25 12:18 03/04/25 08:02 6 03/04/25 08:00 10 03/04/25 07:21 03/04/25 03:35 60 03/04/25 03:16 30 Queries Orthopedic Spine Obesity: Yes
[2025-03-04] MEDS: CARBOHYDRATES FOR HYPOGLYCEMIA PO PRN (20:19)
[2025-03-05 05:34] LABS: Hematocrit (blood only) 29.4 % (42.0-52.0); Hemoglobin 9.8 g/dl (14.0-18.0); Mean Corpuscular Hemoglobin 29.3 pg (25.0-34.0); Mean Corpuscular Hgb Conc 33.3 g/dL (32.0-36.0); Mean Platelet Volume 11.2 fL (9.4-12.4); Nucleated RBC # (auto) 0.02 K/uL (0.00-0.12); Nucleated RBC % (auto) 0.1 %; Platelet Count 145 K/uL (130-400); RDW Coefficient of Variation 15.1 % (11.5-14.5); RDW Standard Deviation 48.4 fL (36.4-46.3); Red Blood Count 3.34 M/uL (4.70-6.10); White Blood Count 19.78 K/ul (4.8-10.8)
[2025-03-05 06:04] LABS: Albumin Globulin Ratio 1.2 (0.9-2); Albumin Level 3.1 gm/dl (3.4-5.0); BUN Creatinine Ratio 27.3 (10-20); Bilirubin,Total 0.8 mg/dl (0.2-1.0); Calcium 7.3 mg/dl (8.6-10.3); Creatinine Clr Calc Pharmacy 24.9 ml/min; Globulin 2.6 gm/dl (2.5-4.0); Potassium 4.2 mmol/L (3.5-5.1); Total Protein 5.7 gm/dl (6.0-8.3)
--- NOTE | 2025-03-05 09:06 | Pulmonary Consultation ---
Date of Consultation March 05, 2025 Assessment & Plan (1) Acute on chronic respiratory failure with hypoxia and hypercapnia: Plan Acute hypoxia likely related to hypoventilation and atelectasis -Patient post op on 03/04/25 for lumbar decompression w/ b/l fasciotomies and foraminotomies, L4-L5 fusion, L4-L5 and L5-S1 interbody fusion. -Patient on nasal cannula with SpO2 88% improved with placing cannula in nares and deep breathing/ISB to 93% -CXR reviewed and less concerning for pneumonia with right basilar consolidation representing atelectasis. No pulm edema or effusion. -Will check VBG to assess if hypercapnia and level of hypoxemia -Recommend ISB 10 times per hour while awake. Patient will need to ensure proper technique for ISB. -Deescalate antibiotics to augmentin or discontinue as pneumonia less likely cause for hypoxia. -OOB and activity as much as can be tolerated. -Can continue CPAP qhs. Supplemental oxygen to target SpO2 > 92%. -Patient would benefit from outpatient sleep study given high risk for sleep apnea. STOP-Bang 7. Supervising Physician Co-Signing Physician Notes Patient seen and examined. EMR reviewed. Images independently reviewed. Discussed with patient as well as with KAREN and agree with assessment and plan as noted. The patient appears to have multifactorial hypoxemia potentially due to hypercarbia and VQ mismatch with shunt physiology. His procalcitonin is borderline elevated. Unclear significance of his elevated white blood cell count. Do not see an indication for broad-spectrum antibiotics including antipseudomonal coverage or MRSA coverage at this point time. He has no lower respiratory infectious symptomatology. Recommend checking VBG. Continue positive airway pressure at night. The patient would benefit from outpatient polysomnography. Aggressive incentive spirometry, and out of bed to chair as tolerated would likely improve atelectasis and VQ mismatching. Wean oxygen as tolerated to maintain saturations at or above 88%. Doubt shunt physiology so do not think we need to pursue echocardiogram with bubble study at this point in time. Thanks for the opportunity participating the care of this patient. Will continue to follow with you. Feel free to contact us with questions or concerns History of Present Illness Reason for Consultation: Hypoxia s/p Lumbar decompression and fusion Attending Physician: Kirk Saleh, DO History of Present Illness Ted Mueller is a 74-year-old male with past medical history significant for normocytic, normochromic anemia, CKD stage III, DM2, HTN, CAD s/p cardiac catheterization w/ PCI of ostial to proximal LAD with drug-eluting stent, chronic systolic CHF with reduced LVEF 40-45%, chronic diastolic CHF with grade I LV diastolic dysfunction who was admitted to the Spine Surgery Service of Dr. Kirk Saleh on 02/28/2025 with complaints of "chronic persistent back and leg pain and failing course of nonoperative care is here for surgical invention." Patient underwent a lumbar decompression w/ bilateral fasciotomies and foraminotomies, posterior spine fusion of L4-L5, and interbody fusion of L4-L5 and L5-L6 on 02/28/25. Procedure by report went well without complication. Patient postoperatively noted to have persistent hypoxia and was started on broad spectrum antibiotics for concern of pneumonia. Pulmonary consulted on 03/05/25 for recommendations of persistent hypoxia in the post surgical setting. Patient does not wear oxygen at home. 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 No smoking history. CXR performed 03/05/25 personally reviewed and showed no signs of pulmonary edema, pleural effusions, small bibasilar consolidation likely atelectasis which is > on the right. Allergies Allergy/AdvReac Type Severity Reaction Status Date / Time No Known Allergies Allergy Unknown Verified 02/28/25 08:15 Home Medications Medication Instructions Recorded Confirmed Type amlodipine 10 mg tablet 10 mg PO QAM 07/31/20 02/28/25 History aspirin 81 mg tablet,delayed 81 mg PO DAILY 07/31/20 02/28/25 History release (Adult Low Dose Aspirin) blood sugar diagnostic (FreeStyle #10 ea 07/31/20 02/11/25 History Lite Strips) cholecalciferol (vitamin D3) 1,250 50,000 unit PO .COMPLEX 07/31/20 02/28/25 History mcg (50,000 unit) tablet fenofibrate nanocrystallized 145 145 mg PO QAM 07/31/20 02/28/25 History mg tablet isosorbide mononitrate 60 mg 60 mg PO QAM 07/31/20 02/28/25 History tablet,extended release 24 hr lancets 28 gauge (FreeStyle #100 ea 02/04/21 02/11/25 History Lancets) coenzyme Q10 200 mg capsule 200 mg PO QAM 06/15/21 02/28/25 History ascorbic acid (vitamin C) 500 mg 500 mg PO QAM 10/12/22 02/28/25 History capsule carvedilol 25 mg tablet 25 mg PO BID 02/08/23 02/28/25 History zinc gluconate 30 mg tablet 30 mg PO QAM 02/08/23 02/28/25 History atorvastatin 40 mg tablet 80 mg PO HS 02/05/24 02/28/25 History ticagrelor 90 mg tablet (Brilinta) 90 mg PO BID 02/05/24 02/28/25 History semaglutide 1 mg/dose (4 mg/3 mL) 1 mg (0.75 mL) subcut ONCE #9 mL 08/09/24 02/28/25 Rx subcutaneous pen injector (Ozempic) insulin degludec 200 unit/mL (3 120 unit (0.6 mL) subcut BID #108 11/21/24 02/28/25 Rx mL) subcutaneous pen (Tresiba mL FlexTouch U-200 insulin) gabapentin 300 mg capsule 300 mg PO BID 02/03/25 02/28/25 History losartan 100 mg tablet 25 mg PO QAM 02/03/25 02/28/25 History insulin lispro 100 unit/mL See Rx Instructions .Route 02/11/25 02/28/25 Rx subcutaneous pen (Admelog SoloStar .COMPLEX #105 mL U-) oxycodone 5 mg tablet 5 mg PO Q6H PRN pain #30 tabs 03/03/25 Rx tramadol 50 mg tablet 50 mg PO Q6H PRN pain, moderate 03/03/25 Rx #30 tabs Patient History Medical History Carotid artery stenosis <50% bilat ICA stenosis by 03/2024 doppler (per received cardio records) Ischemic cardiomyopathy Hx of renal calculi Chronic back pain Arthritis DDD (degenerative disc disease), lumbar Chronic kidney disease, stage 4 (severe) Follows with [facility] neph[facility] (Dr. Collins) Hx of myocardial infarction (11/2023) [place] > stents x2 Dyslipidemia Diabetic nephropathy associated with type 2 diabetes mellitus CAD (coronary artery disease) 11/2023- stents x2 Follows with Dr. Fan/[facility] HTN (hypertension) T2DM (type 2 diabetes mellitus) Surgical History Hx of lithotripsy Hx of colonoscopy Hx of cardiac catheterization (11/2023) stents x2 History of bilateral knee arthroplasty Most recent Left knee (d/t torn meniscus 3-4 years ago) History of shoulder surgery Right shoulder History of heart artery stent (11/2023) Stents x2 Family History Father Cancer Sister Cancer Coronary heart disease Social History Smoking Status: Never smoker Second Hand Exposure: No; Do You Dip or Chew Tobacco: No (Quit chewing 5+ years ago); Hx Alcohol Use: No Hx Substance Use: No Preferred Language: Icelandic Communication Ability: Effective Feather Separator Required: No Beliefs That Will Affect Care: None Current Living Situation: Spouse Feels Safe at Home: Yes Assistive Devices: Walker Review of Systems 2 Review of Systems: Constitutional: No Fever, No Chills, No Night Sweats, No Fatigue, No Malaise Cardiovascular: No Chest Pain, No SOB, No PND, No Dyspnea on Exertion, No Orthopnea, No Claudication, No Edema, No Palpitations Respiratory: + mild dyspnea. No Cough, No Sputum, No Wheezing, No Smoke Exposure. Gastrointestinal: No Nausea, No Vomiting, No Diarrhea, No Constipation, No Pain, No Heartburn, No Anorexia, No Dysphagia. Genitourinary: No Dysuria, No Urinary Frequency, No Hematuria, No Urinary Incontinence, No Urgency, No Flank Pain, No Urinary Flow Changes, No Hesitancy Musculoskeletal: + lower back pain, No Arthralgias, No Myalgias, No Joint Swelling, No Joint Stiffness, No Neck Pain, No Injury History Skin: No Skin Lesions, No Pruritis. Neuro: No Weakness, No Numbness, No Paresthesias, No Loss of Consciousness, No Syncope, No Dizziness. Psych: No Anxiety/Panic, No Depression, No Insomnia, No Personality Changes, No Delusions, No Rumination, No SI/HI/AH/VH, No Social Issues, No Memory Changes, No Violence/Abuse Hx., No Eating Concerns Physical Exam 2 Physical Exam: VITALS: Reviewed. WEIGHT/BMI reviewed. GEN: Pleasant obese man sitting in bed with mild dyspnea. PSYCH: Good Judgment. AOx3. Normal memory, mood, and affect. HEENT NECK: Supple, with no masses. CV: RRR, no m/r/g. LUNGS: Clear in bilateral upper lobes, diminished breath sound in bilateral lower lobes. Chest rise symmetrical. Mild dyspnea. Hypxic with SpO2 88% improved to 93% with oxygen in nose and deep breathing. ABD: Soft, NT/ND, NBS, no masses or organomegaly. SKIN: Warm, well perfused. No skin rashes or abnormal lesions. MSK: No deformities, Normal gait. EXT: No clubbing, cyanosis, or edema. Results & Data Results & Data Vital Signs (Past 12 Hours) Vital Signs Temp Pulse Pulse Resp BP Pulse Ox O2 Del Method 03/05/25 08:19 36.8 C 77 19 145/75 H 94 High Flow Nasal Cannula 03/05/25 03:35 70 19 97 03/05/25 03:00 36.9 C 80 18 132/64 98 CPAP 03/05/25 00:00 37 C 88 18 144/76 H 96 CPAP 03/04/25 23:00 81 03/04/25 22:43 84 20 94 O2 Flow Rate FiO2 03/05/25 08:19 8 03/05/25 03:35 40 03/05/25 03:00 40 03/05/25 00:00 40 03/04/25 23:00 03/04/25 22:43 40 Laboratory Results 03/05/25 04:50 03/05/25 04:50 Chest X-Ray 03/05/25 08:17 XR chest 1V portable CLINICAL HISTORY: eval pneumonia COMPARISON STUDY: 03/03/2025 FINDINGS: The opacity at the medial right lung base has improved. Residual airspace opacity or atelectasis persists. The left lung remains clear. There is no evidence of pneumothorax. Heart and pulmonary vascularity are grossly negative. Patient is chronically elevated right hemidiaphragm. IMPRESSION: Slight improvement right basilar infiltrate. PG Care Time/CCT Total # of Minutes Spent Total Time Spent with Patient: Total time spent is greater than 50% in coordination of care (as documented) at patient's floor/unit and/or counseling patient: Coding Level of Care Code 05498 INT INP/OBS CARE 2/55MIN Diagnoses Acute on chronic respiratory failure with hypoxia and hypercapnia J96.21; J96.22 Time Spent (min) 40
--- NOTE | 2025-03-05 09:06 | XRay Report ---
XR chest 1V portable CLINICAL HISTORY: eval pneumonia COMPARISON STUDY: 03/03/2025 FINDINGS: The opacity at the medial right lung base has improved. Residual airspace opacity or atelec tasis persists. The left lung remains clear. There is no evidence of pneumothorax. Heart and pulmonar y vascularity are grossly negative. Patient is chronically elevated right hemidiaphragm. IMPRESSION: Slight improvement right basilar infiltrate. ACT 112: Negative or not required by law. Electronically signed by: Lashanda Knapp M.D. 03/05/2025 9:05 AM
--- NOTE | 2025-03-05 09:22 | Orthopedic Progress Note ---
Date of Service March 05, 2025 Assessment & Plan (1) Lumbosacral spondylosis with radiculopathy: Plan: Please initiate physical therapy today and encourage ambulation as tolerated. Admission and Anticipated Discharge Date Admission Date: February 28, 2025 Subjective Patient's back pain is controlled. Denies any leg pain. Does not feel short of breath at this time. Physical Exam Physical Exam: Patient is sitting beside the bed eating breakfast. Is comfortable. Good strength testing. Results & Data Vital Signs (Past 12 Hours) Vital Signs Temp Pulse Pulse Resp BP Pulse Ox O2 Del Method 03/05/25 08:19 36.8 C 77 19 145/75 H 94 High Flow Nasal Cannula 03/05/25 03:35 70 19 97 03/05/25 03:00 36.9 C 80 18 132/64 98 CPAP 03/05/25 00:00 37 C 88 18 144/76 H 96 CPAP 03/04/25 23:00 81 03/04/25 22:43 84 20 94 O2 Flow Rate FiO2 03/05/25 08:19 8 03/05/25 03:35 40 03/05/25 03:00 40 03/05/25 00:00 40 03/04/25 23:00 03/04/25 22:43 40 Queries Orthopedic Spine Obesity: Yes
[2025-03-05 09:54] LABS: Base Excess VBG -1.1 mEq/L; HCO3 VBG 24 mmol/L; Oxygen Saturation VBG 69.8 %; PCO2 VBG 42 mmHg (38-50); PO2 VBG 43 mmHg; pH VBG 7.37 (7.36-7.41)
--- NOTE | 2025-03-05 10:47 | Pharmacy Report ---
Pharmacy Glycemic Short Note 2 - Date of Service March 05, 2025 - Glycemic Short BSG Results (Last 24 hours): 03/04/25 03/04/25 03/04/25 11:51 17:15 20:16 Glucose POC Glucose 164 H 86 66 L* 03/04/25 03/04/25 03/05/25 20:18 20:40 04:50 Glucose 50 L* POC Glucose 64 L* 97 03/05/25 03/05/25 03/05/25 06:08 06:23 08:06 Glucose POC Glucose 52 L* 99 147 H OUTPATIENT ANTIDIABETIC REGIMEN: * Degludec 100 units SC BID * Lispro 35 units with break & lunch, 45 units with dinner * Semaglutide 1 mg SC once weekly A1c = 6.8% (January 2025) ASSESSMENT: 03/05 * Patient required significantly less insulin yesterday than previous days (total of 31 units of insulin of which 20 units were basal) and he still dropped below the goal range last evening. No basal insulin was given last evening. Patient reportedly did not have much oral intake yesterday. * Fasting BSG was 52mg/dL this morning and improved to 99/147mg/dL after receiving D50. Lantus insulin was held again this morning and the CR of the bolus insulin was loosened. Will consider adding a small Lantus scale tonight if he continues eating today and BSGs start trending back up. 03/03 * Ted received a total of 313 units of insulin yesterday (220 units were basal and 93 units were bolus). BSGs were all above goal despite increased insulin usage. * Fasting BSG today was 105mg/dL. Today is the last day of scheduled dexamethasone so it is expected that insulin needs will decrease as the steroids wear off. Will continue lantus scale (reduced to 40, 60, or 80 units based on BSG) and bolus insulin as previously ordered. Will likely need to loosen bolus insulin parameters tomorrow morning. 03/01 * Ted is a 74yo M with PMH of type II DM, POLO, CAD with PCI, CKD IV who is POD # 1 s/p lumbar decompression and fusion. Patient experienced postop hypercapnic respiratory failure and prolonged sedation. Scr trending up. * He is ordered high dose IV steroids, dexamethasone 6 mg IV daily. Anticipate steroid induced hyperglycemia. * Patient with decent BSG control overnight after receiving reduced dose of Lantus 25 units at HS. Fasting BSG of 170 mg/dL this AM. Trended up to 278 mg/dL at lunch. * Increase basal insulin. Lantus 40 units given with breakfast and lunch. Will start Lantus per BSG scale this evening (max daily dose will be 20% decrease in home dose). Tighten Novolog CF and CR. PLAN FOR INPATIENT GLYCEMIC CONTROL: * Hold outpatient diabetes medications * Basal insulin * hold for now * Bolus insulin * NovoLog per scale ACHS or Q6hrs while NPO * Goal Range: Low 110 mg/dL - High 140 mg/dL * Correction Factor: 20 mg/dL/unit * Nutritional / Prandial insulin per carb ratio of 1 unit per 20 grams CHO consumed
--- NOTE | 2025-03-05 11:38 | XCELERA ---
[id number]
--- NOTE | 2025-03-05 16:44 | Hospitalist Progress Note ---
Date of Service March 05, 2025 Assessment & Plan (1) Acute on chronic respiratory failure with hypoxia and hypercapnia: Plan: (2) HAP (hospital-acquired pneumonia): (3) Acute kidney failure: (4) Chronic renal disease, stage 4, severely decreased glomerular filtration rate (GFR) between 15-29 mL/min/1.73 square meter: (5) Hypercapnic respiratory failure: (6) T2DM (type 2 diabetes mellitus): (7) Hypertension: (8) Dyslipidemia: (9) CAD (coronary atherosclerotic disease): Plan 74-year-old male who underwent lumbar spine surgery on 02/28/2025. He has a known history of heart failure reduced ejection fraction and chronic kidney disease stage III typically following in the [place] system. Patient is known to have coronary disease status post stenting of an ostial LAD and diagonal 1 patient is diabetic however did receive cardiac clearance and underwent successful surgery. Postsurgery, 3 days the patient became profoundly hypoxic during physical therapy and has remained profoundly hypoxic since that time. It was discovered that he has a right sided pneumonia and was initiated on an antibiotics. Despite antibiotic care the patient continued to be profoundly hypoxic. The patient has progressed with acute kidney injury with a history of chronic kidney disease with creatinines now raising to the 3 range and BUN in the 90 range. Pulmonary medicine consulted and does not feel pneumonia is a significant player in his hypoxia but feels this is rather hypoventilation from atelectasis. # Acute hypoxemic respiratory failure , Started on Zosyn and Vancomycin, MRSA nares were negative and vanco stopped but developed suellen on ckd 3 , continue antibiotic treatment for pneumonia, pulmonary medicine has de-escalated this to oral Augmentin I recommend incentive spirometry breathing to improve his hypoxia. VBG did not show carbon oxide retention #Acute exacerbation of chronic systolic/diastolic CHF with reduced LVEF, Repeat echocardiogram shows reduced ejection fraction with reduced global left reticular function not clear if this is plays a role in his exertional dyspnea CARDIOLOGY ON 03/06/2025 losartan stopped respiratory status unclear, continue carvedilol and isosorbide #Acute kidney injury with CKD stage III with baseline creatinine range, 2.0 - 2.4 CR has risen, stopped ARB, did have vanco load, will check ua for active sediment and renal us, attempt small volume IVF, if not improving may be renal involved potassium and bicarb are ok suggesting maybe atn from perioperative volume shifts #troponin elevation with troponin-I #1 28.5 pg/mL (03/03/2025, 2:16pm). not suspecting acs demand ischemia #Acute thrombocytopenia with admission platelet count 155 (03/01/2025, 5:32am) decreasing to 102 (03/02/2025, 5:51am) to 106 (03/03/2025, 6:44am). Admission and Anticipated Discharge Date Admission Date: February 28, 2025 Subjective Was called again by nursing with the patient with profound desaturation with ambulation to the bathroom. Requiring 3 be placed on noninvasive positive pressure ventilation. Was able to be titrated down to 8 L high flow nasal cannula to maintain saturations. Patient was seen in consultation by pulmonary critical care they do not feel his hypoxia is related to his pneumonia as much and de-escalated his antibiotics to oral Augmentin. They feel his hypoxia is related to atelectasis and hypoventilation and recommended incentive spirometry breathing. Physical Exam Physical Exam: Physical exam the patient appears comfortable wearing the noninvasive positive pressure ventilator. Patient denies any recent chest pain. Lungs have reasonably good air movement to auscultation exam cardiac exam is regular without murmurs or rubs Extremities are without edema Results & Data Results & Data Vital Signs (Past 12 Hours) Vital Signs Temp Pulse Pulse Resp BP Pulse Ox O2 Del Method 03/05/25 16:18 80 19 135/94 93 BiPAP 03/05/25 16:10 84 03/05/25 15:09 92 03/05/25 14:44 85 22 93 03/05/25 11:22 98.4 F 84 18 142/73 H 90 BiPAP 03/05/25 11:05 79 20 93 03/05/25 08:19 98.2 F 77 19 145/75 H 94 High Flow Nasal Cannula 03/05/25 08:15 Nasal Cannula 03/05/25 08:00 76 O2 Flow Rate FiO2 03/05/25 16:18 03/05/25 16:10 03/05/25 15:09 10 03/05/25 14:44 30 03/05/25 11:22 03/05/25 11:05 30 03/05/25 08:19 8 03/05/25 08:15 8 03/05/25 08:00 Laboratory Results Reviewed CBC reviewed chemistry reviewed VBG PG Care Time/CCT Total # of Minutes Spent Total Time Spent with Patient: Total time spent is greater than 50% in coordination of care (as documented) at patient's floor/unit and/or counseling patient: Coding Level of Care Code 99157 SUB INP/OBS CARE 3/50MIN Diagnoses Acute on chronic respiratory failure with hypoxia and hypercapnia J96.21; J96.22 HAP (hospital-acquired pneumonia) J18.9; Y95 Acute kidney failure N17.9 Chronic renal disease, stage 4, severely decreased glomerular filtration rate (GFR) between 15-29 mL/min/1.73 square meter N18.4 Hypercapnic respiratory failure J96.92 Type 2 diabetes mellitus with diabetic nephropathy, with long-term current use of insulin E11.21; Z79.4 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 transplanted heart: [place] heart Associated angina: with other forms of angina (6) T2DM (type 2 diabetes mellitus) Diabetes mellitus retirement insulin use: with wool fleece grader use Diabetes mellitus complication status: with kidney complications Diabetes mellitus complication detail: with nephropathy Qualified Code(s): E11.21 - Type 2 diabetes mellitus with diabetic nephropathy; Z79.4 - USP (current) use of insulin (7) Hypertension Hypertension type: primary hypertension Qualified Code(s): I10 - Essential (primary) hypertension (9) CAD (coronary atherosclerotic disease) Coronary Disease-Associated Artery/Lesion type: [place] artery [place] vs. transplanted heart: [place] heart Associated angina: with other forms of angina Qualified Code(s): I25.118 - Atherosclerotic heart disease of [place] coronary artery with other forms of angina pectoris
[2025-03-05] MEDS: AMOXICILLIN/CLAVULANATE 500 MG TAB PO SCH (17:34)
[2025-03-05] MEDS: ACETAMINOPHEN 500 MG TAB PO PRN (20:50)
[2025-03-05] MEDS: LANTUS PER UNIT CHARGE SC SCH (20:59)
--- NOTE | 2025-03-06 08:18 | Pulmonology Progress Note ---
Date of Service March 06, 2025 Assessment & Plan (1) Acute on chronic respiratory failure with hypoxia and hypercapnia: Plan Impression: 74-year-old male with likely undiagnosed sleep disordered breathing admitted for elective back surgery with postoperative hypoxemia which is multifactorial due to combinations of VQ mismatching and atelectasis as well as hypercarbia. Clinically improving. Recommendations: 1. Bilateral lower lobe atelectasis: Continue aggressive incentive spirometry. Out of bed to chair is much as tolerated and ambulate is much as tolerated. Will pursue a trial of flutter valve in conjunction with his incentive spirometry to see if this offers him some clinical benefit. 2. Hypoxemia: Wean oxygen to maintain oxygen saturations at or above 90%. Repeat venous blood gas appeared well compensated. Echocardiogram reviewed. Bubble study was not performed so cannot rule out [id number] shunt but appears less likely. His EF was reduced additionally. Consideration for cardiology input might be appropriate given the reduction in his EF. Patient will likely require supplemental oxygen at discharge and consideration for rehab might be appropriate. Diuresis limited due to acute kidney injury. 3. Likely undiagnosed sleep disordered breathing. Agree with application of positive airway pressure at night and as needed during the day. Recommend outpatient polysomnography 4. Possible pneumonia: Currently on Augmentin. Procalcitonin was not significantly increased. Will trend white blood cell count. Fever curve reassuring and patient has a lack of lower respiratory symptomatology currently. Management of patient's other medical issues per primary admitting service. Will continue to follow with you. Feel free to contact us with questions or concerns Admission and Anticipated Discharge Date Admission Date: February 28, 2025 Subjective Patient seen and examined. EMR reviewed. The patient reports that he is feeling somewhat better. He continues to exhibit shortness of breath with physical activity. His back pain remains problematic. He states he has been ambulatory for short distances but has required application of positive airway pressure intermittently during the day as well as at night. He is not coughing or expectorating phlegm. He denies any chest pain or palpitations. No fevers chills or night sweats. He reports increasing compliance with incentive spirometry. Review of Systems 2 Review of Systems: All systems reviewed & are unremarkable except as noted in Subjective Physical Exam 2 Constitutional: WD/WN, vitals as above + obese Neck: trachea midline, no thyromegaly Respiratory: normal respiratory effort, lungs clear to auscultation Cardiovascular: RRR, no murmur, no edema Gastrointestinal (Abdomen): normal bowel sounds, soft, nontender, no hepatosplenomegaly Musculoskeletal: Extremities: extremities normal to inspection Skin: no rashes, warm and dry Neurologic: Nonfocal exam Lymphatic: no cervical lymphadenopathy Results & Data Results & Data Vital Signs (Past 12 Hours) Vital Signs Temp Pulse Pulse Resp BP Pulse Ox O2 Del Method 03/06/25 03:54 36.6 C 83 18 137/74 90 CPAP 03/06/25 03:00 73 18 91 03/05/25 23:17 36.7 C 73 18 127/63 93 CPAP 03/05/25 23:15 78 03/05/25 23:02 74 22 93 FiO2 03/06/25 03:54 30 03/06/25 03:00 30 03/05/25 23:17 30 03/05/25 23:15 03/05/25 23:02 30 Laboratory Results 03/05/25 04:50 03/05/25 04:50 Diagnostic Findings New imaging PG Care Time/CCT Total # of Minutes Spent Total Time Spent with Patient: Total time spent is greater than 50% in coordination of care (as documented) at patient's floor/unit and/or counseling patient: Coding Level of Care Code 65750 SUB INP/OBS CARE 2/35MIN Diagnoses Acute on chronic respiratory failure with hypoxia and hypercapnia J96.21; J96.22
--- NOTE | 2025-03-06 08:43 | Orthopedic Progress Note ---
Date of Service March 06, 2025 Assessment & Plan (1) Lumbosacral spondylosis with radiculopathy: Plan: Ted postoperative day 6 status post L4-S1 decompression and fusion. Will continue with ambulation and physical therapy. Continue medical management of pneumonia/atelectasis currently on oral antibiotics. Will have to consult social service manager for disposition home versus rehab upon discharge. Admission and Anticipated Discharge Date Admission Date: February 28, 2025 Subjective Ted is postoperative day 6 status post L4-S1 decompression and fusion with postoperative course complicated by pneumonia/atelectasis. He was originally on Zosyn and vancomycin IV. Pulmonary then switched him to oral Augmentin. Still requiring BiPAP machine. Yesterday only ambulated 3 feet in physical therapy. Struggling with some back and bilateral lower extremity pain. No new complaints this morning. Review of Systems Review of Systems: All systems reviewed & are unremarkable except as noted in HPI & below Physical Exam Physical Exam: Laying in bed in no acute distress No shortness of breath Strength intact bilateral lower extremities Results & Data Vital Signs (Past 12 Hours) Vital Signs Temp Pulse Pulse Resp BP Pulse Ox O2 Del Method 03/06/25 08:13 36.5 C 83 24 156/80 H 91 Oxymask 03/06/25 03:54 36.6 C 83 18 137/74 90 CPAP 03/06/25 03:00 73 18 91 03/05/25 23:17 36.7 C 73 18 127/63 93 CPAP 03/05/25 23:15 78 03/05/25 23:02 74 22 93 FiO2 03/06/25 08:13 03/06/25 03:54 30 03/06/25 03:00 30 03/05/25 23:17 30 03/05/25 23:15 03/05/25 23:02 30 Queries Orthopedic Spine Obesity: Yes
[2025-03-06 10:52] LABS: Albumin Globulin Ratio 1.1 (0.9-2); Albumin Level 3.2 gm/dl (3.4-5.0); BUN Creatinine Ratio 27.5 (10-20); Bilirubin,Total 0.8 mg/dl (0.2-1.0); Calcium 7.6 mg/dl (8.6-10.3); Creatinine Clr Calc Pharmacy 25.4 ml/min; Globulin 2.8 gm/dl (2.5-4.0); Potassium 3.9 mmol/L (3.5-5.1)
--- NOTE | 2025-03-06 11:26 | Ultrasound Report ---
BILATERAL LOWER EXTREMITY VENOUS DOPPLER HISTORY: eval for post op DVT COMPARISON STUDY: None FINDINGS: No evidence of DVT seen in bilateral lower extremities. IMPRESSION: No DVT seen. ACT 112: Negative or not required by law. Electronically signed by: Andry Cotto M.D. 03/06/2025 11:25 AM
--- NOTE | 2025-03-06 14:30 | Hospitalist Progress Note ---
Date of Service March 06, 2025 Assessment & Plan (1) Acute on chronic respiratory failure with hypoxia and hypercapnia: Plan: (2) HAP (hospital-acquired pneumonia): (3) Acute kidney failure: (4) Chronic renal disease, stage 4, severely decreased glomerular filtration rate (GFR) between 15-29 mL/min/1.73 square meter: (5) Hypercapnic respiratory failure: (6) T2DM (type 2 diabetes mellitus): (7) Hypertension: (8) Dyslipidemia: (9) CAD (coronary atherosclerotic disease): Plan 74-year-old male who underwent lumbar spine surgery on 02/28/2025. He has a known history of heart failure reduced ejection fraction and chronic kidney disease stage III typically following in the [facility]. Patient is known to have coronary disease status post stenting of an ostial LAD and diagonal 1 patient is diabetic however did receive cardiac clearance and underwent successful surgery. Postsurgery, 3 days the patient became profoundly hypoxic during physical therapy and has remained hypoxic since that time. It was discovered that he has a right sided pneumonia and was initiated on an antibiotics. Despite antibiotic care the patient continued to be hypoxic. The patient has progressed with acute kidney injury with a history of chronic kidney disease with creatinines now raising to the 3 range and BUN in the 90 range. Pulmonary medicine consulted and does not feel pneumonia is a significant player in his hypoxia but feels this is rather hypoventilation from atelectasis. # Acute hypoxemic respiratory failure , Started on Zosyn and Vancomycin, MRSA nares were negative and vanco stopped but developed suellen on ckd 3 , continue antibiotic treatment for pneumonia, pulmonary medicine has de-escalated this to oral Augmentin & recommend incentive spirometry breathing to improve his hypoxia. VBG did not show carbon oxide retention #Acute exacerbation of chronic systolic/diastolic CHF with reduced LVEF, Repeat echocardiogram shows reduced ejection fraction with reduced global left reticular function not clear if this is plays a role in his exertional dyspnea losartan stopped respiratory status unclear, continue carvedilol and isosorbide #Acute kidney injury with CKD stage III with baseline creatinine range, 2.0 - 2.4 CR has risen, stopped ARB, did have vanco load, will check ua for active sediment and renal us, attempt small volume IVF, if not improving may be renal involved potassium and bicarb are ok suggesting maybe atn from perioperative volume shifts, collect urine sodium and CR to eval for FeNa #troponin elevation with troponin-I #1 28.5 pg/mL (03/03/2025, 2:16pm). not suspecting acs demand ischemia #Acute thrombocytopenia resolved Admission and Anticipated Discharge Date Admission Date: February 28, 2025 Subjective pt is pleasant and cheerful although still with significant oxygen requirements pulmonary feels more impact of atelectasis than infection, suellen persists will obtaion labs for fena, concern not to use diuretics or add fluids Physical Exam Physical Exam: Physical exam the patient appears comfortable today is on oxymask. Patient denies any recent chest pain. Lungs have reasonably good air movement to auscultation exam cardiac exam is regular without murmurs or rubs Extremities are without edema Results & Data Results & Data Vital Signs (Past 12 Hours) Vital Signs Temp Pulse Pulse Resp BP Pulse Ox O2 Del Method 03/06/25 12:17 98.2 F 82 20 127/74 92 Nasal Cannula 03/06/25 11:14 73 03/06/25 08:13 97.7 F 83 24 156/80 H 91 Oxymask 03/06/25 03:54 97.9 F 83 18 137/74 90 CPAP 03/06/25 03:00 73 18 91 FiO2 03/06/25 12:17 03/06/25 11:14 03/06/25 08:13 03/06/25 03:54 30 03/06/25 03:00 30 Laboratory Results reviewed chem 7 reviwed LIver function tests PG Care Time/CCT Total # of Minutes Spent Total Time Spent with Patient: Total time spent is greater than 50% in coordination of care (as documented) at patient's floor/unit and/or counseling patient: Coding Level of Care Code 22643 SUB INP/OBS CARE 3/50MIN Diagnoses Acute on chronic respiratory failure with hypoxia and hypercapnia J96.21; J96.22 HAP (hospital-acquired pneumonia) J18.9; Y95 Acute kidney failure N17.9 Chronic renal disease, stage 4, severely decreased glomerular filtration rate (GFR) between 15-29 mL/min/1.73 square meter N18.4 Hypercapnic respiratory failure J96.92 Type 2 diabetes mellitus with diabetic nephropathy, with long-term current use of insulin E11.21; Z79.4 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 transplanted heart: [place] heart Associated angina: with other forms of angina (6) T2DM (type 2 diabetes mellitus) Diabetes mellitus halfway insulin use: with halfway use Diabetes mellitus complication status: with kidney complications Diabetes mellitus complication detail: with nephropathy Qualified Code(s): E11.21 - Type 2 diabetes mellitus with diabetic nephropathy; Z79.4 - it risk and assurance senior manager (current) use of insulin (7) Hypertension Hypertension type: primary hypertension Qualified Code(s): I10 - Essential (primary) hypertension (9) CAD (coronary atherosclerotic disease) Coronary Disease-Associated Artery/Lesion type: [place] artery [place] vs. transplanted heart: [place] heart Associated angina: with other forms of angina Qualified Code(s): I25.118 - Atherosclerotic heart disease of [place] coronary artery with other forms of angina pectoris
--- NOTE | 2025-03-06 16:49 | Cardiology Consultation ---
Date of Consultation March 06, 2025 Assessment & Plan (1) Dyspnea: (2) CAD (coronary atherosclerotic disease): (3) Ischemic cardiomyopathy: (4) Mitral regurgitation: Plan 1. Dyspnea: I think this is most likely related to a pulmonary problem. Perhaps atelectasis. Initial evaluation suggested hypercapnic respiratory failure which would be poor ventilation. While he does have an elevated BNP he certainly does not appear volume overloaded and he does not have orthopnea. A trial of diuresis can always be entertained, but does have some compromise renal function. I do not think his current symptoms are likely anginal in nature. At this point I would simply monitor his progression. If there is some concern about his volume status right heart catheterization could be entertained. I will think his current "decline" in LV function is a real change or new. I do not think he requires an ischemic evaluation on that basis alone. 2. Coronary disease: Status post percutaneous intervention to the proximal LAD and ramus intermedius 11/2023. No current symptoms suggestive of coronary insufficiency or angina. His index symptoms primarily involve discomfort under the right clavicle. Exertional symptoms now isolated to significant dyspnea. He reports a good exercise tolerance leading up to his recent back surgery. He was seen reasonable continue aggressive secondary prevention and dual antiplatelet therapy as prescribed. 3. Ischemic cardiomyopathy: Review of his records suggest the overall LV function has varied over the years. I am not sure that his current evaluation is significantly different than prior. He is on a medical regimen that consists of carvedilol and losartan. More aggressive treatment relatively contraindicated given his renal dysfunction. 4. Mitral regurgitation: Mild to moderate. History of Present Illness Reason for Consultation: Shortness of breath Requesting Physician: Nati Attending Physician: Kirk Saleh DO History of Present Illness The patient is a 74-year-old gentleman with a history of coronary disease having undergone percutaneous intervention approximately 1 year ago. He is also known to have an element of reduced LV systolic function. He is mated to the hospital for an elective back surgery due to pain in the left lower back. Postoperatively the patient was noted to have an element of sedation and hypercapnic respiratory failure. Since that time has been in the hospital with some breathing difficulty. The patient states that leading up to his surgery he did not have difficulty with shortness of breath. He states that despite his back pain he was able to exercise regularly. He used a treadmill and a stationary bike. He not report limiting symptoms such as dyspnea or exertional chest pain. He generally is not aware of palpitations. He has not had orthopnea or paroxysmal nocturnal dyspnea at home. Has not noticed any swelling in his hands or lower extremities. Currently he is feeling well. He is lying in bed and does not have significant dyspnea. He states that with activity however he becomes short of breath and this is a definite change for him. Index symptoms associated with his initial heart attack included discomfort on the right clavicle. He has not had any recurrence of those symptoms. No current chest pain or chest pressure with activity. No dizziness or lightheadedness. Again, no edema. Allergies Allergy/AdvReac Type Severity Reaction Status Date / Time No Known Allergies Allergy Unknown Verified 02/28/25 08:15 Home Medications Medication Instructions Recorded Confirmed Type amlodipine 10 mg tablet 10 mg PO QAM 07/31/20 02/28/25 History aspirin 81 mg tablet,delayed 81 mg PO DAILY 07/31/20 02/28/25 History release (Adult Low Dose Aspirin) blood sugar diagnostic (FreeStyle #10 ea 07/31/20 02/11/25 History Lite Strips) cholecalciferol (vitamin D3) 1,250 50,000 unit PO .COMPLEX 07/31/20 02/28/25 History mcg (50,000 unit) tablet fenofibrate nanocrystallized 145 145 mg PO QAM 07/31/20 02/28/25 History mg tablet isosorbide mononitrate 60 mg 60 mg PO QAM 07/31/20 02/28/25 History tablet,extended release 24 hr lancets 28 gauge (FreeStyle #100 ea 02/04/21 02/11/25 History Lancets) coenzyme Q10 200 mg capsule 200 mg PO QAM 06/15/21 02/28/25 History ascorbic acid (vitamin C) 500 mg 500 mg PO QAM 10/12/22 02/28/25 History capsule carvedilol 25 mg tablet 25 mg PO BID 02/08/23 02/28/25 History zinc gluconate 30 mg tablet 30 mg PO QAM 02/08/23 02/28/25 History atorvastatin 40 mg tablet 80 mg PO HS 02/05/24 02/28/25 History ticagrelor 90 mg tablet (Brilinta) 90 mg PO BID 02/05/24 02/28/25 History semaglutide 1 mg/dose (4 mg/3 mL) 1 mg (0.75 mL) subcut ONCE #9 mL 08/09/24 02/28/25 Rx subcutaneous pen injector (Ozempic) insulin degludec 200 unit/mL (3 120 unit (0.6 mL) subcut BID #108 11/21/24 02/28/25 Rx mL) subcutaneous pen (Tresiba mL FlexTouch U-200 insulin) gabapentin 300 mg capsule 300 mg PO BID 02/03/25 02/28/25 History losartan 100 mg tablet 25 mg PO QAM 02/03/25 02/28/25 History insulin lispro 100 unit/mL See Rx Instructions .Route 02/11/25 02/28/25 Rx subcutaneous pen (Admelog SoloStar .COMPLEX #105 mL U-) oxycodone 5 mg tablet 5 mg PO Q6H PRN pain #30 tabs 03/03/25 Rx tramadol 50 mg tablet 50 mg PO Q6H PRN pain, moderate 03/03/25 Rx #30 tabs Patient History Medical History Carotid artery stenosis <50% bilat ICA stenosis by 03/2024 doppler (per received cardio records) Ischemic cardiomyopathy Hx of renal calculi Chronic back pain Arthritis DDD (degenerative disc disease), lumbar Chronic kidney disease, stage 4 (severe) Follows with [facility] nephrology (Dr. Collins) Hx of myocardial infarction (11/2023) [place] > stents x2 Dyslipidemia Diabetic nephropathy associated with type 2 diabetes mellitus CAD (coronary artery disease) 11/2023- stents x2 Follows with Dr. Fan/[facility] HTN (hypertension) T2DM (type 2 diabetes mellitus) Surgical History Hx of lithotripsy Hx of colonoscopy Hx of cardiac catheterization (11/2023) stents x2 History of bilateral knee arthroplasty Most recent Left knee (d/t torn meniscus 3-4 years ago) History of shoulder surgery Right shoulder History of heart artery stent (11/2023) Stents x2 Family History Father Cancer Sister Cancer Coronary heart disease Social History Smoking Status: Never smoker Second Hand Exposure: No; Do You Dip or Chew Tobacco: No (Quit chewing 5+ years ago); Hx Alcohol Use: No Hx Substance Use: No Preferred Language: Japanese Communication Ability: Effective Pack Master Required: No Beliefs That Will Affect Care: None Current Living Situation: Spouse Feels Safe at Home: Yes Assistive Devices: Walker Review of Systems Review of Systems: Per HPI Physical Exam Physical Exam: The patient is alert and oriented. Mood and affect appeared normal. He answered all questions appropriately. Using supplemental oxygen HEENT: Pupils are equal and reactive to light and accommodation. Extraocular movements are intact. The sclerae are anicteric. Neuro: Cranial nerves intact Lungs: Clear to auscultation bilaterally. Some reduced breath sounds at the right base. He has good air movement without use of accessory muscles. No rales wheezes or rhonchi. Cardiac: Heart demonstrates a regular rate and rhythm. Normal S1 and S2. No murmurs on examination. Pulses: The patient has palpable radial pulses bilaterally that are equal in intensity Extremities: There was no evidence of hypoperfusion. There is no cyanosis or clubbing. There is no edema. Skin: I did not appreciate any rashes on examination today. Results & Data Vital Signs (Past 12 Hours) Vital Signs Temp Pulse Pulse Resp BP Pulse Ox O2 Del Method 03/06/25 15:40 37.1 C 83 20 147/69 H 93 Nasal Cannula 03/06/25 14:32 83 03/06/25 12:17 36.8 C 82 20 127/74 92 Nasal Cannula 03/06/25 11:14 73 03/06/25 08:13 36.5 C 83 24 156/80 H 91 Oxymask 03/06/25 08:00 Oxymask, High Flow Nasal Cannula O2 Flow Rate 03/06/25 15:40 03/06/25 14:32 03/06/25 12:17 03/06/25 11:14 03/06/25 08:13 03/06/25 08:00 13 Laboratory Results Abnormal Lab Results 03/05/25 03/05/25 03/06/25 16:47 20:19 07:40 Sodium Potassium Chloride Carbon Dioxide Anion Gap BUN Creatinine Est Cr Clr Drug Dosing eGFR BUN/Creatinine Ratio Glucose POC Glucose 112 H 152 H 86 Calcium Total Bilirubin AST ALT Alkaline Phosphatase Total Protein Albumin Globulin Albumin/Globulin Ratio 03/06/25 03/06/25 10:04 12:04 Sodium 141 Potassium 3.9 Chloride 106 Carbon Dioxide 25 Anion Gap 10 BUN 92 H Creatinine 3.34 H Est Cr Clr Drug Dosing 25.4 eGFR 18.35 BUN/Creatinine Ratio 27.5 H Glucose 113 H POC Glucose 94 Calcium 7.6 L Total Bilirubin 0.8 AST 31 ALT 14 Alkaline Phosphatase 35 Total Protein 6.0 Albumin 3.2 L Globulin 2.8 Albumin/Globulin Ratio 1.1 Diagnostic Findings Echocardiogram 03/05/2025: Moderate reduced LV systolic function ejection fraction 30 to 35%. Mild LVH. Moderate global hypokinesis of the left ventricle. Mild dilation of left atrium. Moderate mitral annular calcification with mild to moderate mitral regurgitation. Echocardiogram 01/23/2025: Mild reduced LV systolic function ejection fraction of 40 to 45%. Mild mitral irritation. Mild left atrial enlargement. Stage I diastolic dysfunction. PCI to the ostial LAD and ramus intermedius to 2023. Setting of acute myocardial infarction. PG Care Time/CCT Total # of Minutes Spent Total Time Spent with Patient: Total time spent is greater than 50% in coordination of care (as documented) at patient's floor/unit and/or counseling patient: Coding Level of Care Code 75751 INT INP/OBS CARE MIN Diagnoses Dyspnea R06.00 Atherosclerosis of [place] coronary artery of [place] heart with other form of angina pectoris I25.118 Associated angina: with other forms of angina Coronary Disease-Associated Artery/Lesion type: [place] artery [place] vs. transplanted heart: [place] heart Ischemic cardiomyopathy I25.5 Mitral regurgitation I34.0 (2) CAD (coronary atherosclerotic disease) Associated angina: with other forms of angina Coronary Disease-Associated Artery/Lesion type: [place] artery [place] vs. transplanted heart: [place] heart Qualified Code(s): I25.118 - Atherosclerotic heart disease of [place] coronary artery with other forms of angina pectoris
[2025-03-06] MEDS: HYDROmorphone INJ 1 MG/ML SYRINGE IV PRN (18:16)
[2025-03-07 00:14] LABS: Creatinine Urine Random 95.4 mg/dl
[2025-03-07 06:12] LABS: Basophils # (auto) 0.02 K/uL (0.00-0.20); Basophils % (auto) 0.1 %; Eosinophils # (auto) 0.15 K/uL (0.00-0.50); Eosinophils % (auto) 0.8 %; Hematocrit (blood only) 29.3 % (42.0-52.0); Hemoglobin 9.7 g/dl (14.0-18.0); Immature Granulocytes # (auto) 0.61 K/uL (0.01-0.20); Immature Granulocytes % (auto) 3.2 %; Lymphocytes # (auto) 0.62 K/uL (1.20-3.40); Lymphocytes % (auto) 3.3 %; Mean Corpuscular Hgb Conc 33.1 g/dL (32.0-36.0); Mean Corpuscular Volume 87.5 fL (80.0-100.0); Mean Platelet Volume 10.9 fL (9.4-12.4); Monocytes # (auto) 1.56 K/uL (0.11-0.59); Monocytes % (auto) 8.2 %; Neutrophils # (auto) 16.01 K/uL (1.40-6.50); Neutrophils % (auto) 84.4 %; Platelet Count 181 K/uL (130-400); RDW Coefficient of Variation 14.8 % (11.5-14.5); RDW Standard Deviation 47.3 fL (36.4-46.3); Red Blood Count 3.35 M/uL (4.70-6.10); White Blood Count 18.97 K/ul (4.8-10.8)
[2025-03-07 06:39] LABS: BUN Creatinine Ratio 29.9 (10-20); Calcium 7.8 mg/dl (8.6-10.3); Creatinine Clr Calc Pharmacy 26.7 ml/min; Potassium 3.9 mmol/L (3.5-5.1)
--- NOTE | 2025-03-07 07:51 | Pulmonology Progress Note ---
Date of Service March 07, 2025 Assessment & Plan (1) Acute on chronic respiratory failure with hypoxia and hypercapnia: (2) Atelectasis: (3) HAP (hospital-acquired pneumonia): (4) Hypoxia: Plan Impression: 74-year-old male s/p lumbar decompression and fuison with post operative hypoxia likely multifactorial with VQ mismatching and atelectasis as well as hypercarbia. Subjectively improving. Bilateral lower lobe atelectasis: -Continue ISB 10 times per hour while awake -OOB as tolerated. Patient stated he was OOB for 30 minutes would try to extend this as long as he tolerates. -Flutter valve ordered QID -Continue positive pressure ventilation qhs and with naps. -Repeat chest x-ray 2 view this am Hypoxemia -Continue with oxygen titrated to maintain SpO2 > 90% -Will order limited TTE w/ bubble study to assess for anatomical shunt Likely undiagnosed sleep disordered breathing -Continue positive airway pressure at night and as needed during the day. -Recommend outpatient polysomnography Possible pneumonia: -Continue on Augmentin. -Procalcitonin was not significantly increased on 03/04 at 0.57. Will repeat this am. Persistent leukocytosis WBC 18.97. Afebrile in last 24hrs. Management of patient's other medical issues per primary admitting service. Will continue to follow with you. Feel free to contact us with questions or concerns Admission and Anticipated Discharge Date Admission Date: February 28, 2025 Subjective "Im doing good this morning" Patient continues to be hypoxic with increasing oxygen requirements. Patient lying in bed in no apparent distress. Will expand workup for possible causes of persistent hypoxia in the post op setting. Review of Systems 2 Review of Systems: All systems reviewed & are unremarkable except as noted in Subjective Physical Exam 2 Constitutional: WD/WN, vitals as above + obese, cooperative and comfortable Neck: trachea midline Respiratory: normal respiratory effort, lungs clear to auscultation Cardiovascular: RRR, no murmur, no edema Gastrointestinal (Abdomen): normal bowel sounds, soft, nontender, no hepatosplenomegaly Musculoskeletal: Extremities: extremities normal to inspection Skin: no rashes, warm and dry Neurologic: Nonfocal weakness orexam Psychiatric: A+Ox3, euthymic affect Lymphatic: no cervical lymphadenopathy Results & Data Results & Data Vital Signs (Past 12 Hours) Vital Signs Temp Pulse Pulse Resp BP Pulse Ox O2 Del Method 03/07/25 02:49 36.7 C 82 20 147/74 H 94 BiPAP 03/07/25 02:15 78 16 90 03/07/25 01:17 77 19 92 03/06/25 23:26 36.5 C 78 21 141/77 H 93 High Flow Nasal Cannula 03/06/25 21:12 80 03/06/25 20:30 High Flow Nasal Cannula O2 Flow Rate FiO2 03/07/25 02:49 03/07/25 02:15 50 03/07/25 01:17 45 03/06/25 23:26 13 03/06/25 21:12 03/06/25 20:30 13 Laboratory Results 03/07/25 05:29 03/07/25 05:29 Abnormal Lab Results 03/06/25 03/06/25 03/06/25 10:04 12:04 16:52 WBC RBC Hgb Hct MCV MCH MCHC RDW Std Deviation RDW Coeff of Ortega Plt Count MPV Immature Gran % (Auto) Neut % (Auto) Lymph % (Auto) [place] % (Auto) Eos % (Auto) Baso % (Auto) Neut # (Auto) Lymph # (Auto) [place] # (Auto) Eos # (Auto) Baso # (Auto) Immature Gran # (Auto) Sodium 141 Potassium 3.9 Chloride 106 Carbon Dioxide 25 Anion Gap 10 BUN 92 H Creatinine 3.34 H Est Cr Clr Drug Dosing 25.4 eGFR 18.35 BUN/Creatinine Ratio 27.5 H Glucose 113 H POC Glucose 94 72 Calcium 7.6 L Total Bilirubin 0.8 AST 31 ALT 14 Alkaline Phosphatase 35 Total Protein 6.0 Albumin 3.2 L Globulin 2.8 Albumin/Globulin Ratio 1.1 Ur Random Creatinine Ur Random Sodium 03/06/25 03/06/25 03/07/25 20:34 22:56 05:29 WBC 18.97 H RBC 3.35 L Hgb 9.7 L Hct 29.3 L MCV 87.5 MCH 29.0 MCHC 33.1 RDW Std Deviation 47.3 H RDW Coeff of Ortega 14.8 H Plt Count 181 MPV 10.9 Immature Gran % (Auto) 3.2 Neut % (Auto) 84.4 Lymph % (Auto) 3.3 [place] % (Auto) 8.2 Eos % (Auto) 0.8 Baso % (Auto) 0.1 Neut # (Auto) 16.01 H Lymph # (Auto) 0.62 L [place] # (Auto) 1.56 H Eos # (Auto) 0.15 Baso # (Auto) 0.02 Immature Gran # (Auto) 0.61 H Sodium 140 Potassium 3.9 Chloride 105 Carbon Dioxide 25 Anion Gap 10 BUN 95 H Creatinine 3.18 H Est Cr Clr Drug Dosing 26.7 eGFR 19.46 BUN/Creatinine Ratio 29.9 H Glucose 68 L POC Glucose 70 Calcium 7.8 L Total Bilirubin AST ALT Alkaline Phosphatase Total Protein Albumin Globulin Albumin/Globulin Ratio Ur Random Creatinine 95.4 Ur Random Sodium 17 Diagnostic Findings Limited TTE with bubble study pending CXR 2-view AP + lateral pending PG Care Time/CCT Total # of Minutes Spent Total Time Spent with Patient: Total time spent is greater than 50% in coordination of care (as documented) at patient's floor/unit and/or counseling patient: Coding Level of Care Code 60497 SUB INP/OBS CARE 2/35MIN Diagnoses Acute on chronic respiratory failure with hypoxia and hypercapnia J96.21; J96.22 Atelectasis J98.11 HAP (hospital-acquired pneumonia) J18.9; Y95 Hypoxia R09.02
--- NOTE | 2025-03-07 09:18 | XRay Report ---
XR chest 2V PA/lateral CLINICAL HISTORY: Evaluate lung for abnormalities with hypoxia COMPARISON STUDY: 03/05/2025 FINDINGS: Stable mild cardiomegaly without pulmonary vascular congestion. There is increased strandin g opacity in the lung bases. No pleural effusion or pneumothorax. IMPRESSION: Increased pneumonia versus atelectasis in the lung bases. ACT 112: Negative or not required by law. Electronically signed by: Andry Cotto M.D. 03/07/2025 9:17 AM
[2025-03-07] MEDS: LANTUS PER UNIT CHARGE SC SCH (09:27)
--- NOTE | 2025-03-07 10:28 | XCELERA ---
[id number]
--- NOTE | 2025-03-07 10:28 | Orthopedic Progress Note ---
Date of Service March 07, 2025 Assessment & Plan (1) Lumbosacral spondylosis with radiculopathy: Plan: At this time he is stable from an orthopedic standpoint and encouraged to therapy as tolerated. We await discharge pending medical stability. Admission and Anticipated Discharge Date Admission Date: February 28, 2025 Subjective Patient is back pain is controlled. Leg pain improved. He is denying shortness of breath. Physical Exam Physical Exam: Patient is sitting up at the bedside. He is comfortable. Results & Data Vital Signs (Past 12 Hours) Vital Signs Temp Pulse Pulse Resp BP Pulse Ox O2 Del Method 03/07/25 07:54 36.8 C 79 20 166/74 H 93 Nasal Cannula 03/07/25 02:49 36.7 C 82 20 147/74 H 94 BiPAP 03/07/25 02:15 78 16 90 03/07/25 01:17 77 19 92 03/06/25 23:26 36.5 C 78 21 141/77 H 93 High Flow Nasal Cannula O2 Flow Rate FiO2 03/07/25 07:54 13.0 03/07/25 02:49 03/07/25 02:15 50 03/07/25 01:17 45 03/06/25 23:26 13 Queries Orthopedic Spine Obesity: Yes
--- NOTE | 2025-03-07 10:43 | Electrocardiogram Report ---
Test Reason : Blood Pressure : */* mmHG Vent. Rate : 81 BPM Atrial Rate : 81 BPM P-R Int : 176 ms QRS Dur : 98 ms QT Int : 370 ms P-R-T Axes : 50 31 52 degrees QTcB Int : 429 ms Normal sinus rhythm When compared with ECG of 03-Mar-2025 14:20, No significant change was found Confirmed by Hussein Bruno ([id number]) on 03/07/2025 10:43:30 AM Referred By: Kirk Saleh Confirmed By: Hussein Bruno
--- NOTE | 2025-03-07 10:56 | Hospitalist Progress Note ---
Date of Service March 07, 2025 Assessment & Plan (1) Acute on chronic respiratory failure with hypoxia and hypercapnia: Plan: Pulmonary consult appreciated likely 2nd to b/l lower lobe atelectasis con't ISB, flutter valve Postive pressure ventilation repeat CXR today showing Increased pneumonia versus atelectasis in the lung bases. echo showing no interatrial shunt still on 13L 02 (2) HAP (hospital-acquired pneumonia): Plan: -con't augmentin (3) Acute kidney failure: Plan: -cr elevated to 3.3 -nephrology consulted (4) Chronic renal disease, stage 4, severely decreased glomerular filtration rate (GFR) between 15-29 mL/min/1.73 square meter: Plan: cr elevated above base of 2.4 losartan on hold (5) Hypercapnic respiratory failure: (6) T2DM (type 2 diabetes mellitus): Plan: roseline HOBBS (7) Hypertension: Plan: coreg, isosorbide (8) Dyslipidemia: (9) CAD (coronary atherosclerotic disease): Plan: -cardiology consult appreciated (10) Lumbosacral spondylosis with radiculopathy: Plan: -stable from orthopedic stand point -PT and likely rehab placement Plan 74-year-old male who underwent lumbar spine surgery on 02/28/2025. He has a known history of heart failure reduced ejection fraction and chronic kidney disease stage III typically following in the [place] [facility]. Patient is known to have coronary disease status post stenting of an ostial LAD and diagonal 1 patient is diabetic however did receive cardiac clearance and underwent successful surgery. Postsurgery, 3 days the patient became profoundly hypoxic during physical therapy and has remained hypoxic since that time. It was discovered that he has a right sided pneumonia and was initiated on an antibiotics. Despite antibiotic care the patient continued to be hypoxic. The patient has progressed with acute kidney injury with a history of chronic kidney disease with creatinines now raising to the 3 range and BUN in the 90 range. Pulmonary medicine consulted and does not feel pneumonia is a significant player in his hypoxia but feels this is rather hypoventilation from atelectasis. Admission and Anticipated Discharge Date Admission Date: February 28, 2025 Subjective No events overnight. Pt resting comfortably in bed with 02. Review of Systems Review of Systems: CONST: Negative for fever, body aches and chills. HENT: Negative for neck pain/stiffness, headache, congestion, sore throat, swelling. EYES: Negative for discharge/pain or vision changes. RESP: Negative for cough/hemoptysis and shortness of breath. CV: Negative chest pain, difficulty breathing, palpitations. ABD: Negative pain, nausea, vomiting. : Negative increase frequency, dysuria, blood in urine or stool. MUSC: Negative for muscle aches, edema. SKIN: Negative rash, lesions/sores. NEURO: Negative headache, dizziness, weakness. Physical Exam Physical Exam: GENERAL APPEARANCE NAD, activity normal for age, well developed/ well nourished, no cyanosis, pallor, or diaphoresis. EYES lids/conjunctiva normal. EARS/NOSE/THROAT Mucous membranes moist, nares normal, lips/teeth normal uvula midline without oral pharyngeal erythema, exudate or swelling TMs normal bilaterally. No lymphangitis/lymphedema. HEAD/NECK normocephalic atraumatic, no facial trauma, neck is supple. RESPIRATORY respiratory effort normal, speaks in full sentences, no tripod position, no accessory muscle use. Lungs clear to auscultation without rhonchi, wheezes, rales CARDIAC Regular rate and rhythm, no edema. ABDOMINAL Soft, ND/NT. No evidence of fluid wave. No pulsatile masses on exam, rebound tenderness, Mars sign or pain over Mcburney's point. MUSCLES/EXTREMITIES No abnormal range of motion, no swelling. SKIN Warm, pink and dry. No rashes, dermatoses, petechiae or lesions. NEUROLOGICAL Speech is clear and appropriate. Normal level of consciousness. Gait and coordination are normal. 5/5 strength in all extremities. PSYCH Normal mood and affect. Judgement/competence is appropriate Results & Data Results & Data Vital Signs (Past 12 Hours) Vital Signs Temp Pulse Pulse Resp BP Pulse Ox O2 Del Method 03/07/25 07:54 36.8 C 79 20 166/74 H 93 Nasal Cannula 03/07/25 02:49 36.7 C 82 20 147/74 H 94 BiPAP 03/07/25 02:15 78 16 90 03/07/25 01:17 77 19 92 03/06/25 23:26 36.5 C 78 21 141/77 H 93 High Flow Nasal Cannula O2 Flow Rate FiO2 03/07/25 07:54 13.0 03/07/25 02:49 03/07/25 02:15 50 03/07/25 01:17 45 03/06/25 23:26 13 PG Care Time/CCT Total # of Minutes Spent Total Time Spent with Patient: Total time spent is greater than 50% in coordination of care (as documented) at patient's floor/unit and/or counseling patient: Coding Level of Care Code 78081 SUB INP/OBS CARE 2/35MIN Diagnoses Acute on chronic respiratory failure with hypoxia and hypercapnia J96.21; J96.22 HAP (hospital-acquired pneumonia) J18.9; Y95 Acute kidney failure N17.9 Chronic renal disease, stage 4, severely decreased glomerular filtration rate (GFR) between 15-29 mL/min/1.73 square meter N18.4 Hypercapnic respiratory failure J96.92 Type 2 diabetes mellitus with diabetic nephropathy, with long-term current use of insulin E11.21; Z79.4 Diabetes mellitus detention insulin use: with detention use Diabetes mellitus complication status: with kidney complications Diabetes mellitus complication detail: with nephropathy Primary hypertension I10 Hypertension type: primary hypertension Dyslipidemia E78.5 Atherosclerosis of [place] coronary artery of [place] heart with other form of angina pectoris I25.118 Coronary Disease-Associated Artery/Lesion type: [place] artery [place] vs. transplanted heart: [place] heart Associated angina: with other forms of angina Lumbosacral spondylosis with radiculopathy M47.27 (6) T2DM (type 2 diabetes mellitus) Diabetes mellitus detention insulin use: with terminal gauger use Diabetes mellitus complication status: with kidney complications Diabetes mellitus complication detail: with nephropathy Qualified Code(s): E11.21 - Type 2 diabetes mellitus with diabetic nephropathy; Z79.4 - terminal gauger (current) use of insulin (7) Hypertension Hypertension type: primary hypertension Qualified Code(s): I10 - Essential (primary) hypertension (9) CAD (coronary atherosclerotic disease) Coronary Disease-Associated Artery/Lesion type: [place] artery [place] vs. transplanted heart: [place] heart Associated angina: with other forms of angina Qualified Code(s): I25.118 - Atherosclerotic heart disease of [place] coronary artery with other forms of angina pectoris
--- NOTE | 2025-03-07 13:02 | Cardiology Progress Note ---
Date of Service March 07, 2025 Assessment & Plan (1) Dyspnea: (2) CAD (coronary atherosclerotic disease): (3) Ischemic cardiomyopathy: (4) Mitral regurgitation: Plan 1. Dyspnea: Stable, but not markedly improved. Likely better pulmonary toilet and lung expansion now that he is up in a chair and more ambulatory. From a cardiac standpoint there could be some pulmonary vascular congestion. However, he is affecting some diuresis on his own. Renal function stable but compro mised. We could consider some diuresis if his condition does not improve. 2. Coronary disease: Status post percutaneous intervention to the proximal LAD and ramus intermedius 11/2023. No current symptoms suggestive of coronary insufficiency or angina. His index symptoms primarily involve discomfort under the right clavicle. Exertional symptoms now isolated to significant dyspnea. He reports a good exercise tolerance leading up to his recent back surgery. He was seen reasonable continue aggressive secondary prevention and dual antiplatelet therapy as prescribed. 3. Ischemic cardiomyopathy: Review of his records suggest the overall LV function has varied over the years. I am not sure that his current evaluation is significantly different than prior. He is on a medical regimen that consists of carvedilol and losartan. More aggressive treatment relatively contraindicated given his renal dysfunction. 4. Mitral regurgitation: Mild to moderate. Cardiology will sign off at this point. Please feel free to contact the on-call [facility] mathematician research for additional questions or concerns during this patient's hospitalization. Thank you Admission and Anticipated Discharge Date Admission Date: February 28, 2025 Subjective This morning the patient claims to be feeling better. He was ambulatory twice around the johnson. He continues to have breathing trouble and feels that this was similar to yesterday's activity. He did not describe orthopnea. No exertional chest pain or subclavicular pain. No dizziness or lightheadedness. Review of Systems Review of Systems: Per HPI Physical Exam Physical Exam: The patient is alert and oriented. Mood and affect appeared normal. He answered all questions appropriately. Using supplemental oxygen HEENT: Pupils are equal and reactive to light and accommodation. Extraocular movements are intact. The sclerae are anicteric. Neuro: Cranial nerves intact Lungs: Clear to auscultation bilaterally. Some reduced breath sounds at the right base. He has good air movement without use of accessory muscles. No rales wheezes or rhonchi. Cardiac: Heart demonstrates a regular rate and rhythm. Normal S1 and S2. No murmurs on examination. Pulses: The patient has palpable radial pulses bilaterally that are equal in i ntensity Extremities: There was no evidence of hypoperfusion. There is no cyanosis or clubbing. There is no edema. Skin: I did not appreciate any rashes on examination today. Results & Data Vital Signs (Past 12 Hours) Vital Signs Temp Pulse Pulse Resp BP Pulse Ox O2 Del Method 03/07/25 11:20 36.9 C 79 20 154/76 H 90 Nasal Cannula 03/07/25 08:15 High Flow Nasal Cannula 03/07/25 08:15 94 H 03/07/25 07:54 36.8 C 79 20 166/74 H 93 Nasal Cannula 03/07/25 02:49 36.7 C 82 20 147/74 H 94 BiPAP 03/07/25 02:15 78 16 90 03/07/25 01:17 77 19 92 O2 Flow Rate FiO2 03/07/25 11:20 13.0 03/07/25 08:15 13 03/07/25 08:15 03/07/25 07:54 13.0 03/07/25 02:49 03/07/25 02:15 50 03/07/25 01:17 45 Laboratory Results Abnormal Lab Results 03/06/25 03/06/25 03/06/25 10:07 16:52 20:34 WBC RBC Hgb Hct MCV MCH MCHC RDW Std Deviation RDW Coeff of Ortega Plt Count MPV Immature Gran % (Auto) Neut % (Auto) Lymph % (Auto) [place] % (Auto) Eos % (Auto) Baso % (Auto) Neut # (Auto) Lymph # (Auto) [place] # (Auto) Eos # (Auto) Baso # (Auto) Immature Gran # (Auto) Sodium Potassium Chloride Carbon Dioxide Anion Gap BUN Creatinine Est Cr Clr Drug Dosing eGFR BUN/Creatinine Ratio Glucose POC Glucose 72 70 Calcium Procalcitonin 0.62 H Ur Random Creatinine Ur Random Sodium 03/06/25 03/07/25 03/07/25 22:56 05:29 07:58 WBC 18.97 H RBC 3.35 L Hgb 9.7 L Hct 29.3 L MCV 87.5 MCH 29.0 MCHC 33.1 RDW Std Deviation 47.3 H RDW Coeff of Ortega 14.8 H Plt Count 181 MPV 10.9 Immature Gran % (Auto) 3.2 Neut % (Auto) 84.4 Lymph % (Auto) 3.3 [place] % (Auto) 8.2 Eos % (Auto) 0.8 Baso % (Auto) 0.1 Neut # (Auto) 16.01 H Lymph # (Auto) 0.62 L [place] # (Auto) 1.56 H Eos # (Auto) 0.15 Baso # (Auto) 0.02 Immature Gran # (Auto) 0.61 H Sodium 140 Potassium 3.9 Chloride 105 Carbon Dioxide 25 Anion Gap 10 BUN 95 H Creatinine 3.18 H Est Cr Clr Drug Dosing 26.7 eGFR 19.46 BUN/Creatinine Ratio 29.9 H Glucose 68 L POC Glucose 147 H Calcium 7.8 L Procalcitonin Ur Random Creatinine 95.4 Ur Random Sodium 17 03/07/25 11:19 WBC RBC Hgb Hct MCV MCH MCHC RDW Std Deviation RDW Coeff of [place]tega Plt Count MPV Immature Gran % (Auto) Neut % (Auto) Lymph % (Auto) [place] % (Auto) Eos % (Auto) Baso % (Auto) Neut # (Auto) Lymph # (Auto) [place] # (Auto) Eos # (Auto) Baso # (Auto) Immature Gran # (Auto) Sodium Potassium Chloride Carbon Dioxide Anion Gap BUN Creatinine Est Cr Clr Drug Dosing eGFR BUN/Creatinine Ratio Glucose POC Glucose 145 H Calcium Procalcitonin Ur Random Creatinine Ur Random Sodium PG Care Time/CCT Total # of Minutes Spent Total Time Spent with Patient: Total time spent is greater than 50% in coordination of care (as documented) at patient's floor/unit and/or counseling patient: Coding Level of Care Code 95449 SUB INP/OBS CARE 2/35MIN Diagnoses Dyspnea R06.00 Atherosclerosis of [place] coronary artery of [place] heart with other form of angina pectoris I25.118 Coronary Disease-Associated Artery/Lesion type: [place] artery [place] vs. transplanted heart: [place] heart Associated angina: with other forms of angina Ischemic cardiomyopathy I25.5 Mitral regurgitation I34.0 (2) CAD (coronary atherosclerotic disease) Coronary Disease-Associated Artery/Lesion type: [place] artery [place] vs. transplanted heart: [place] heart Associated angina: with other forms of angina Qualified Code(s): I25.118 - Atherosclerotic heart disease of [place] coronary artery with other forms of angina pectoris
--- NOTE | 2025-03-07 14:14 | Nephrology Consultation ---
Date of Consultation March 07, 2025 Assessment & Plan (1) Acute kidney failure: (2) Chronic renal disease, stage 4, severely decreased glomerular filtration rate (GFR) between 15-29 mL/min/1.73 square meter: (3) Hypertension: (4) Dyslipidemia: (5) T2DM (type 2 diabetes mellitus): (6) Lumbosacral spondylosis with radiculopathy: (7) Hypercapnic respiratory failure: Plan 74 y o M with stage 4 cKD, b/l cr 2.2 to 2.5 mg/dl, admitted on 02/28/2025 and had elective lumbar decompression w/ bilateral fasciotomies and foraminotomies, posterior spine fusion of L4-L5, and interbody fusion of L4-L5 and L5-L6 for chronic back pain. Post operatively developed DAMI, hypoxic respiratory failure and pneumonia. Was on Vancomycin, which was stopped and started on Augmentin. Cr on admission was 2.8 slowly increased to 3.4 and now starting to improve, down to 3.2 mg/dl this morning, most likely some hemodynamic effect and possible Vanco toxicity. UA with low grade proteinuria. USG unremarkable. BP slightly elevated but volume status acceptable. Decent UO, net negative. Significant drop in Hb noted. --continue to monitor lab for recovery, expect kidney function to continue to improve. --if BP remains elevated, OK to restart on losartan starting tomorrow --check CBC, iron study with am lab --dose meds for eGFR <10, left arm nephrology precaution. Thank you for the consult. History of Present Illness Reason for Consultation: DAMI, stage 4 CKD, anemia Attending Physician: Kirk Saleh DO History of Present Illness Mr. Ted Mueller is a 74-year-old M with past medical history significant for stage IV CKD, hypertension, diabetes, coronary artery disease, admitted for elective spinal fusion surgery. Nephrology consult requested for management of DAMI with history of electronic medical records were reviewed in detail during patient's visit. Advanced CKD. Manish was admitted on 02/28/2025 and had elective lumbar decompression w/ bilateral fasciotomies and foraminotomies, posterior spine fusion of L4-L5, and interbody fusion of L4-L5 and L5-L6 for chronic back pain. Surgery was uneventful. However, postsurgical course was complicated by persistent hypoxia and concern for pneumonia and started on Augmentin. Over last few days kidney function slowly worsening, on admission creatinine was 2.8 mg/dl creatinine last few days slowly increased and peaked to 3.4 and this morning creatinine was 3.2 mg/dl. Record review shows baseline creatinine has been somewhere around 2-2.5 over last few years, has been following with nephrology. Urinalysis with 2+ proteinuria but no hematuria or pyuria. Ultrasound showed otherwise normal kidney, no postrenal obstruction. He was on vancomycin, trough level was 16.4, it was stopped yesterday and started on Augmentin. No NSAID exposure. Was on losartan 25 mg daily which was stopped on admission. Has not been on any diuretic. Chest x-ray this morning showed some atelectasis but no parveen pulmonary vascular congestion. History of stage IV CKD, baseline creatinine around 2.2 -2.5 mg/dl with low- grade proteinuria, secondary to microvascular disease with history of hypertension, diabetes and coronary artery disease. Never smoker. No known family history of CKD or ESKD. 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 Reports having some persistent shortness of breath but otherwise feeling well. Has been having decent urine output, net negative Blood pressure has been fair without significant hypotensive episode. Allergies Allergy/AdvReac Type Severity Reaction Status Date / Time No Known Allergies Allergy Unknown Verified 02/28/25 08:15 Home Medications Medication Instructions Recorded Confirmed Type amlodipine 10 mg tablet 10 mg PO QAM 07/31/20 02/28/25 History aspirin 81 mg tablet,delayed 81 mg PO DAILY 07/31/20 02/28/25 History release (Adult Low Dose Aspirin) blood sugar diagnostic (FreeStyle #10 ea 07/31/20 02/11/25 History Lite Strips) cholecalciferol (vitamin D3) 1,250 50,000 unit PO .COMPLEX 07/31/20 02/28/25 History mcg (50,000 unit) tablet fenofibrate nanocrystallized 145 145 mg PO QAM 07/31/20 02/28/25 History mg tablet isosorbide mononitrate 60 mg 60 mg PO QAM 07/31/20 02/28/25 History tablet,extended release 24 hr lancets 28 gauge (FreeStyle #100 ea 02/04/21 02/11/25 History Lancets) coenzyme Q10 200 mg capsule 200 mg PO QAM 06/15/21 02/28/25 History ascorbic acid (vitamin C) 500 mg 500 mg PO QAM 10/12/22 02/28/25 History capsule carvedilol 25 mg tablet 25 mg PO BID 02/08/23 02/28/25 History zinc gluconate 30 mg tablet 30 mg PO QAM 02/08/23 02/28/25 History atorvastatin 40 mg tablet 80 mg PO HS 02/05/24 02/28/25 History ticagrelor 90 mg tablet (Brilinta) 90 mg PO BID 02/05/24 02/28/25 History semaglutide 1 mg/dose (4 mg/3 mL) 1 mg (0.75 mL) subcut ONCE #9 mL 08/09/24 02/28/25 Rx subcutaneous pen injector (Ozempic) insulin degludec 200 unit/mL (3 120 unit (0.6 mL) subcut BID #108 11/21/24 02/28/25 Rx mL) subcutaneous pen (Tresiba mL FlexTouch U-200 insulin) gabapentin 300 mg capsule 300 mg PO BID 02/03/25 02/28/25 History losartan 100 mg tablet 25 mg PO QAM 02/03/25 02/28/25 History insulin lispro 100 unit/mL See Rx Instructions .Route 02/11/25 02/28/25 Rx subcutaneous pen (Admelog SoloStar .COMPLEX #105 mL U-) oxycodone 5 mg tablet 5 mg PO Q6H PRN pain #30 tabs 03/03/25 Rx tramadol 50 mg tablet 50 mg PO Q6H PRN pain, moderate 03/03/25 Rx #30 tabs Patient History Medical History Carotid artery stenosis <50% bilat ICA stenosis by 03/2024 doppler (per received cardio records) Ischemic cardiomyopathy Hx of renal calculi Chronic back pain Arthritis DDD (degenerative disc disease), lumbar Chronic kidney disease, stage 4 (severe) Follows with [facility] (Dr. Collins) Hx of myocardial infarction (11/2023) [place] > stents x2 Dyslipidemia Diabetic nephropathy associated with type 2 diabetes mellitus CAD (coronary artery disease) 11/2023- stents x2 Follows with Dr. Fan/[facility] HTN (hypertension) T2DM (type 2 diabetes mellitus) Surgical History Hx of lithotripsy Hx of colonoscopy Hx of cardiac catheterization (11/2023) stents x2 History of bilateral knee arthroplasty Most recent Left knee (d/t torn meniscus 3-4 years ago) History of shoulder surgery Right shoulder History of heart artery stent (11/2023) Stents x2 Family History Father Cancer Sister Cancer Coronary heart disease Social History Smoking Status: Never smoker Second Hand Exposure: No; Do You Dip or Chew Tobacco: No (Quit chewing 5+ years ago); Tobacco Cessation Education Requested by Patient: No Hx Alcohol Use: No Hx Substance Use: No Preferred Language: Kosovan Communication Ability: Effective Telemarketing Representative Required: No Beliefs That Will Affect Care: None Current Living Situation: Spouse Other Information That Helps Us Care for You: No Feels Safe at Home: Yes Safety Concerns: Feels Safe At This Time Assistive Devices: Walker Review of Systems Review of Systems: All systems reviewed & are unremarkable except as noted in Subjective Physical Exam Constitutional: WD/WN, vitals as above no acute distress Eyes: + anicteric sclerae Neck: normal visual inspection Respiratory: normal respiratory effort Auscultation: + crackles Cardiovascular: RRR, no murmur, no edema Gastrointestinal (Abdomen): Inspection/Auscultation: abdomen normal to inspection Musculoskeletal: Extremities: extremities normal to inspection Skin: no rashes, warm and dry Neurologic: no focal motor deficits Psychiatric: Orientation: alert and oriented x 3 Affect: euthymic affect Results & Data Vital Signs (Past 12 Hours) Vital Signs Temp Pulse Pulse Resp BP Pulse Ox O2 Del Method 03/07/25 11:20 36.9 C 79 20 154/76 H 90 Nasal Cannula 03/07/25 08:15 High Flow Nasal Cannula 03/07/25 08:15 94 H 03/07/25 07:54 36.8 C 79 20 166/74 H 93 Nasal Cannula 03/07/25 02:49 36.7 C 82 20 147/74 H 94 BiPAP 03/07/25 02:15 78 16 90 O2 Flow Rate FiO2 05/16/25 11:20 13.0 03/07/25 08:15 13 03/07/25 08:15 03/07/25 07:54 13.0 03/07/25 02:49 03/07/25 02:15 50 PG Care Time/CCT Total # of Minutes Spent Total Time Spent with Patient: Total time spent is greater than 50% in coordination of care (as documented) at patient's floor/unit and/or counseling patient: Coding Level of Care Code 69335 INT INP/OBS CARE 3/75MIN Diagnoses Acute kidney failure N17.9 Chronic renal disease, stage 4, severely decreased glomerular filtration rate (GFR) between 15-29 mL/min/1.73 square meter N18.4 Primary hypertension I10 Hypertension type: primary hypertension Dyslipidemia E78.5 Type 2 diabetes mellitus with diabetic nephropathy, with long-term current use of insulin E11.21; Z79.4 Diabetes mellitus intermediate card tender insulin use: with intermediate card tender use Diabetes mellitus complication status: with kidney complications Diabetes mellitus complication detail: with nephropathy Lumbosacral spondylosis with radiculopathy M47.27 Hypercapnic respiratory failure J96.92 (3) Hypertension Hypertension type: primary hypertension Qualified Code(s): I10 - Essential (primary) hypertension (5) T2DM (type 2 diabetes mellitus) Diabetes mellitus nursing home insulin use: with intermediate card tender use Diabetes mellitus complication status: with kidney complications Diabetes mellitus complication detail: with nephropathy Qualified Code(s): E11.21 - Type 2 diabetes mellitus with diabetic nephropathy; Z79.4 - MCC (current) use of insulin
--- NOTE | 2025-03-07 14:37 | Pharmacy Report ---
Pharmacy Glycemic Short Note 2 - Date of Service March 07, 2025 - Glycemic Short BSG Results (Last 24 hours): 03/06/25 03/06/25 03/07/25 16:52 20:34 05:29 Glucose 68 L POC Glucose 72 70 03/07/25 03/07/25 07:58 11:19 Glucose POC Glucose 147 H 145 H OUTPATIENT ANTIDIABETIC REGIMEN: * Degludec 100 units SC BID * Lispro 35 units with break & lunch, 45 units with dinner * Semaglutide 1 mg SC once weekly A1c = 6.8% (January 2025) ASSESSMENT: 03/08 * Ted received 1 unit of correctional insulin yesterday * Fasting BSG this AM below goal on blood draw and then POC within goal range. Suspect that BSGs will rise without any basal insulin, will give low dose basal this AM and continue to follow. Potentially extended duration of action with renal dysfunction? * NovoLog carbohydrate ratio tighten slightly. 03/05 * Patient required significantly less insulin yesterday than previous days (total of 31 units of insulin of which 20 units were basal) and he still dropped below the goal range last evening. No basal insulin was given last evening. Patient reportedly did not have much oral intake yesterday. * Fasting BSG was 52mg/dL this morning and improved to 99/147mg/dL after receiving D50. Lantus insulin was held again this morning and the CR of the bolus insulin was loosened. Will consider adding a small Lantus scale tonight if he continues eating today and BSGs start trending back up. 03/03 * Ted received a total of 313 units of insulin yesterday (220 units were basal and 93 units were bolus). BSGs were all above goal despite increased insulin usage. * Fasting BSG today was 105mg/dL. Today is the last day of scheduled dexamethasone so it is expected that insulin needs will decrease as the steroids wear off. Will continue lantus scale (reduced to 40, 60, or 80 units based on BSG) and bolus insulin as previously ordered. Will likely need to loosen bolus insulin parameters tomorrow morning. 03/01 * Ted is a 74yo M with PMH of type II DM, POLO, CAD with PCI, CKD IV who is POD # 1 s/p lumbar decompression and fusion. Patient experienced postop hypercapnic respiratory failure and prolonged sedation. Scr trending up. * He is ordered high dose IV steroids, dexamethasone 6 mg IV daily. Anticipate steroid induced hyperglycemia. * Patient with decent BSG control overnight after receiving reduced dose of Lantus 25 units at HS. Fasting BSG of 170 mg/dL this AM. Trended up to 278 mg/dL at lunch. * Increase basal insulin. Lantus 40 units given with breakfast and lunch. Will start Lantus per BSG scale this evening (max daily dose will be 20% decrease in home dose). Tighten Novolog CF and CR. PLAN FOR INPATIENT GLYCEMIC CONTROL: * Hold outpatient diabetes medications * Basal insulin * Lantus 10 units SQ daily * Bolus insulin * NovoLog per scale ACHS or Q6hrs while NPO * Goal Range: Low 110 mg/dL - High 140 mg/dL * Correction Factor: 20 mg/dL/unit * Nutritional / Prandial insulin per carb ratio of 1 unit per 15 grams CHO consumed
[2025-03-08 05:33] LABS: Hematocrit (blood only) 28.5 % (42.0-52.0); Hemoglobin 9.5 g/dl (14.0-18.0); Mean Corpuscular Hemoglobin 29.1 pg (25.0-34.0); Mean Corpuscular Hgb Conc 33.3 g/dL (32.0-36.0); Mean Corpuscular Volume 87.2 fL (80.0-100.0); Mean Platelet Volume 10.9 fL (9.4-12.4); Platelet Count 217 K/uL (130-400); RDW Coefficient of Variation 14.6 % (11.5-14.5); Red Blood Count 3.27 M/uL (4.70-6.10); White Blood Count 18.53 K/ul (4.8-10.8)
[2025-03-08 05:50] LABS: Albumin Level 2.9 gm/dl (3.4-5.0); BUN Creatinine Ratio 33.1 (10-20); Calcium 7.9 mg/dl (8.6-10.3); Creatinine Clr Calc Pharmacy 29.3 ml/min; Phosphorus 5.6 mg/dl (2.5-4.9)
[2025-03-08 06:09] LABS: Ferritin 410.6 ng/ml (8-388)
--- NOTE | 2025-03-08 07:42 | Pulmonology Progress Note ---
Date of Service March 08, 2025 Assessment & Plan (1) Acute on chronic respiratory failure with hypoxia and hypercapnia: Plan Impression: 74-year-old male with likely undiagnosed sleep disordered breathing admitted for elective back surgery with postoperative hypoxemia which is multifactorial due to combinations of VQ mismatching and atelectasis as well as hypercarbia. Clinically improving. Oxygen requirement better today. Recommendations: 1. Bilateral lower lobe atelectasis: Continue aggressive incentive spirometry. Out of bed to chair is much as tolerated and ambulate is much as tolerated. Continue aggressive incentive spirometry and out of bed to chair is much as tolerated 2. Hypoxemia: Wean oxygen to maintain oxygen saturations at or above 90%. Repeat venous blood gas appeared well compensated. Bubble echocardiogram negative for shunt. This morning I was able to decrease the patient down to 5 L/min and he was maintaining oxygen saturations at 96%. Would continue to wean as tolerated. If the patient would benefit from diuresis if tolerated by kidney function and cardiovascular status. 3. Likely undiagnosed sleep disordered breathing. Agree with application of positive airway pressure at night and as needed during the day. Recommend outpatient polysomnography 4. Possible pneumonia: Currently on Augmentin, would complete 7 days therapy. Procalcitonin continues to hover around 0.5 to 0.6. Will trend white blood cell count. Fever curve reassuring and patient has a lack of lower respiratory symptomatology currently. Management of patient's other medical issues per primary admitting service. Will continue to follow with you. Feel free to contact us with questions or concerns Admission and Anticipated Discharge Date Admission Date: February 28, 2025 Subjective Patient seen and examined. He MAR reviewed. The patient is again without complaints this morning. He specifically denies any shortness of breath or chest pain. No coughing or sputum production. He has been mobile yesterday but continues to have significant back pain. He reports no new respiratory concerns or symptoms today. Review of Systems 2 Review of Systems: All systems reviewed & are unremarkable except as noted in Subjective Physical Exam 2 Constitutional: WD/WN, vitals as above + obese Neck: trachea midline, no thyromegaly Respiratory: normal respiratory effort, lungs clear to auscultation Cardiovascular: RRR, no murmur, no edema Gastrointestinal (Abdomen): normal bowel sounds, soft, nontender, no hepatosplenomegaly Musculoskeletal: Extremities: extremities normal to inspection Skin: no rashes, warm and dry Lymphatic: no cervical lymphadenopathy Results & Data Results & Data Vital Signs (Past 12 Hours) Vital Signs Temp Pulse Pulse Resp BP Pulse Ox O2 Del Method 03/08/25 07:34 36.8 C 71 18 150/70 H 95 High Flow Nasal Cannula 03/08/25 05:18 96 High Flow Nasal Cannula 03/08/25 02:39 36.8 C 72 18 136/74 95 High Flow Nasal Cannula 03/07/25 23:09 76 18 96 03/07/25 22:42 74 03/07/25 22:30 36.7 C 76 16 149/77 H 97 BiPAP O2 Flow Rate FiO2 03/08/25 07:34 03/08/25 05:18 10 03/08/25 02:39 13 03/07/25 23:09 40 03/07/25 22:42 03/07/25 22:30 Laboratory Results 03/08/25 05:08 03/08/25 05:08 Diagnostic Findings Chest x-ray from yesterday was independently reviewed. Bibasilar atelectatic changes again were noted. Procalcitonin 0.62 up from 0.522 days earlier. Echo with bubble showed no shunt PG Care Time/CCT Total # of Minutes Spent Total Time Spent with Patient: Total time spent is greater than 50% in coordination of care (as documented) at patient's floor/unit and/or counseling patient: Coding Level of Care Code 21229 SUB INP/OBS CARE 2/35MIN Diagnoses Acute on chronic respiratory failure with hypoxia and hypercapnia J96.21; J96.22
--- NOTE | 2025-03-08 10:07 | Orthopedic Progress Note ---
Date of Service March 08, 2025 Assessment & Plan (1) Lumbosacral spondylosis with radiculopathy: Plan: At this time we will continue to encourage ambulation as tolerated. We would be discharged home when medically stable. Admission and Anticipated Discharge Date Admission Date: February 28, 2025 Subjective Back pain is controlled leg symptoms improved. He is denying any shortness of breath. He has been tolerating ambulation. Physical Exam Physical Exam: Patient is currently in bed. Skin strength testing. Results & Data Vital Signs (Past 12 Hours) Vital Signs Temp Pulse Pulse Resp BP Pulse Ox O2 Del Method 03/08/25 07:34 36.8 C 71 18 150/70 H 95 High Flow Nasal Cannula 03/08/25 05:18 96 High Flow Nasal Cannula 03/08/25 02:39 36.8 C 72 18 136/74 95 High Flow Nasal Cannula 03/07/25 23:09 76 18 96 03/07/25 22:42 74 03/07/25 22:30 36.7 C 76 16 149/77 H 97 BiPAP O2 Flow Rate FiO2 03/08/25 07:34 03/08/25 05:18 10 03/08/25 02:39 13 03/07/25 23:09 40 03/07/25 22:42 03/07/25 22:30 Queries Orthopedic Spine Obesity: Yes
--- NOTE | 2025-03-08 10:38 | Hospitalist Progress Note ---
Date of Service March 08, 2025 Assessment & Plan (1) Acute on chronic respiratory failure with hypoxia and hypercapnia: Plan: Pulmonary consult appreciated likely 2nd to b/l lower lobe atelectasis con't ISB, flutter valve Postive pressure ventilation repeat CXR today showing Increased pneumonia versus atelectasis in the lung bases. echo showing no interatrial shunt 02 down to 5L today (2) HAP (hospital-acquired pneumonia): Plan: -con't augmentin (3) Acute kidney failure: Plan: -cr elevated to 3.3 -nephrology consult appreciated -petty 2nd to vanco toxicity -cr improving (4) Chronic renal disease, stage 4, severely decreased glomerular filtration rate (GFR) between 15-29 mL/min/1.73 square meter: Plan: cr elevated above base of 2.4 losartan on hold (5) Hypercapnic respiratory failure: (6) T2DM (type 2 diabetes mellitus): Plan: RISS, lantus (7) Hypertension: Plan: coreg, isosorbide (8) Dyslipidemia: (9) CAD (coronary atherosclerotic disease): Plan: -cardiology consult appreciated (10) Lumbosacral spondylosis with radiculopathy: Plan: -stable from orthopedic stand point -PT and likely rehab placement Plan 74-year-old male who underwent lumbar spine surgery on 02/28/2025. He has a known history of heart failure reduced ejection fraction and chronic kidney disease s tage III typically following in the [facility]. Patient is known to have coronary disease status post stenting of an ostial LAD and diagonal 1 patient is diabetic however did receive cardiac clearance and underwent successful surgery. Postsurgery, 3 days the patient became profoundly hypoxic during physical therapy and has remained hypoxic since that time. It was discovered that he has a right sided pneumonia and was initiated on an antibiotics. Despite antibiotic care the patient continued to be hypoxic. The patient has progressed with acute kidney injury with a history of chronic kidney disease with creatinines now raising to the 3 range and BUN in the 90 range. Pulmonary medicine consulted and does not feel pneumonia is a significant player in his hypoxia but feels this is rather hypoventilation from atelectasis. Admission and Anticipated Discharge Date Admission Date: February 28, 2025 Subjective Pt will decreased 02 to 5L this am. He is feeling better with no complaints. Review of Systems Review of Systems: CONST: Negative for fever, body aches and chills. HENT: Negative for neck pain/stiffness, headache, congestion, sore throat, swelling. EYES: Negative for discharge/pain or vision changes. RESP: Negative for cough/hemoptysis and shortness of breath. CV: Negative chest pain, difficulty breathing, palpitations. ABD: Negative pain, nausea, vomiting. : Negative increase frequency, dysuria, blood in urine or stool. MUSC: Negative for muscle aches, edema. SKIN: Negative rash, lesions/sores. NEURO: Negative headache, dizziness, weakness. Physical Exam Physical Exam: GENERAL APPEARANCE NAD, activity normal for age, well developed/ well nourished, no cyanosis, pallor, or diaphoresis. EYES lids/conjunctiva normal. EARS/NOSE/THROAT Mucous membranes moist, nares normal, lips/teeth normal uvula midline without oral pharyngeal erythema, exudate or swelling TMs normal bilaterally. No lymphangitis/lymphedema. HEAD/NECK normocephalic atraumatic, no facial trauma, neck is supple. RESPIRATORY respiratory effort normal, speaks in full sentences, no tripod position, no accessory muscle use. Lungs clear to auscultation without rhonchi, wheezes, rales CARDIAC Regular rate and rhythm, no edema. ABDOMINAL Soft, ND/NT. No evidence of fluid wave. No pulsatile masses on exam, rebound tenderness, Mars sign or pain over Mcburney's point. MUSCLES/EXTREMITIES No abnormal range of motion, no swelling. SKIN Warm, pink and dry. No rashes, dermatoses, petechiae or lesions. NEUROLOGICAL Speech is clear and appropriate. Normal level of consciousness. Gait and coordination are normal. 5/5 strength in all extremities. PSYCH Normal mood and affect. Judgement/competence is appropriate Results & Data Results & Data Vital Signs (Past 12 Hours) Vital Signs Temp Pulse Pulse Resp BP Pulse Ox O2 Del Method 03/08/25 08:15 High Flow Nasal Cannula 03/08/25 08:15 71 03/08/25 07:34 36.8 C 71 18 150/70 H 95 High Flow Nasal Cannula 03/08/25 05:18 96 High Flow Nasal Cannula 03/08/25 02:39 36.8 C 72 18 136/74 95 High Flow Nasal Cannula 03/07/25 23:09 76 18 96 03/07/25 22:42 74 O2 Flow Rate FiO2 03/08/25 08:15 5 03/08/25 08:15 03/08/25 07:34 03/08/25 05:18 10 03/08/25 02:39 13 03/07/25 23:09 40 03/07/25 22:42 PG Care Time/CCT Total # of Minutes Spent Total Time Spent with Patient: Total time spent is greater than 50% in coordination of care (as documented) at patient's floor/unit and/or counseling patient: Coding Level of Care Code 92431 SUB INP/OBS CARE 2/35MIN Diagnoses Acute on chronic respiratory failure with hypoxia and hypercapnia J96.21; J96.22 HAP (hospital-acquired pneumonia) J18.9; Y95 Acute kidney failure N17.9 Chronic renal disease, stage 4, severely decreased glomerular filtration rate (GFR) between 15-29 mL/min/1.73 square meter N18.4 Hypercapnic respiratory failure J96.92 Type 2 diabetes mellitus with diabetic nephropathy, with long-term current use of insulin E11.21; Z79.4 Diabetes mellitus termite exterminator helper insulin use: with termite exterminator helper use Diabetes mellitus complication status: with kidney complications Diabetes mellitus complication detail: with nephropathy Primary hypertension I10 Hypertension type: primary hypertension Dyslipidemia E78.5 Atherosclerosis of [place] coronary artery of [place] heart with other form of angina pectoris I25.118 Coronary Disease-Associated Artery/Lesion type: [place] artery [place] vs. transplanted heart: [place] heart Associated angina: with other forms of angina Lumbosacral spondylosis with radiculopathy M47.27 (6) T2DM (type 2 diabetes mellitus) Diabetes mellitus termite exterminator helper insulin use: with termite exterminator helper use Diabetes mellitus complication status: with kidney complications Diabetes mellitus complication detail: with nephropathy Qualified Code(s): E11.21 - Type 2 diabetes mellitus with diabetic nephropathy; Z79.4 - skilled nursing (current) use of insulin (7) Hypertension Hypertension type: primary hypertension Qualified Code(s): I10 - Essential (primary) hypertension (9) CAD (coronary atherosclerotic disease) Coronary Disease-Associated Artery/Lesion type: [place] artery [place] vs. [place] heart: [place] heart Associated angina: with other forms of angina Qualified Code(s): I25.118 - Atherosclerotic heart disease of [place] coronary artery with other forms of angina pectoris
--- NOTE | 2025-03-08 12:09 | Nephrology Progress Note ---
Date of Service March 08, 2025 Assessment & Plan (1) Acute kidney failure: Plan: Non-oliguric. DAMI attributed to ATN/hemodynamic + vanco. Creatinine is downtrending. BP and volume status acceptable. Electrolytes normal. No indication for BARREL LINE OPERATOR at this time. Losartan held. Continue to hold for now. Document strict I/O's. Repeat metabolic profile tomorrow AM. (2) Chronic renal disease, stage 4, severely decreased glomerular filtration rate (GFR) between 15-29 mL/min/1.73 square meter: Plan: Baseline creatinine 2.2-2.5 mg/dL. CKD attributed to DKD and hypertension. Medications appropriate for kidney function. Losartan held. Manish follows with Dr. Collins in [place] as an outpatient. (3) Lumbosacral spondylosis with radiculopathy: Plan: 02/28: lumbar decompression and posterior spine fusion. (4) Hypercapnic respiratory failure: Plan: Improving. CPAP QHS. Aggressive ISP. Pulmonology following. Remains on Augmentin for pneumonia. (5) Anemia: Plan: Anemia of CKD. No requiring REJI therapy. Tsat low, ferritin 410. Venofer 300 mg IV x 1 provided today. Admission and Anticipated Discharge Date Admission Date: February 28, 2025 Subjective No acute events overnight. Manish is resting comfortably in bed. He denies significant dyspnea. Supplemental O2 is being weaned. No fevers or chills. He denies significant pain. Manish is non-oliguric. He does not have fluid retention or edema. Appetite is poor. Denies significant constipation. Review of Systems Review of Systems: All systems reviewed & are unremarkable except as noted in HPI & below Physical Exam Constitutional: WD/WN, vitals as above no acute distress Eyes: + anicteric sclerae Neck: normal visual inspection Respiratory: normal respiratory effort Auscultation: lungs clear to auscultation bilaterally Cardiovascular: RRR, no murmur, no edema Gastrointestinal (Abdomen): Inspection/Auscultation: abdomen normal to inspect ion Musculoskeletal: Extremities: extremities normal to inspection Skin: no rashes, warm and dry Neurologic: no focal motor deficits Psychiatric: Orientation: alert and oriented x 3 Affect: euthymic affect Results & Data Vital Signs (Past 12 Hours) Vital Signs Temp Pulse Pulse Resp BP Pulse Ox O2 Del Method 03/08/25 11:47 36.3 C L 70 18 146/67 H 92 High Flow Nasal Cannula 03/08/25 08:15 High Flow Nasal Cannula 03/08/25 08:15 71 03/08/25 07:34 36.8 C 71 18 150/70 H 95 High Flow Nasal Cannula 03/08/25 05:18 96 High Flow Nasal Cannula 03/08/25 02:39 36.8 C 72 18 136/74 95 High Flow Nasal Cannula O2 Flow Rate 03/08/25 11:47 03/08/25 08:15 5 03/08/25 08:15 03/08/25 07:34 03/08/25 05:18 10 03/08/25 02:39 13 Laboratory Results Laboratory Results - last 24 hr 03/07/25 03/07/25 03/08/25 16:53 20:26 05:08 WBC 18.53 H RBC 3.27 L Hgb 9.5 L Hct 28.5 L MCV 87.2 MCH 29.1 MCHC 33.3 RDW Std Deviation 46.0 RDW Coeff of Orte[place] 14.6 H Plt Count 217 MPV 10.9 Sodium 138 Potassium 4.0 Chloride 105 Carbon Dioxide 23 Anion Gap 10 BUN 96 H Creatinine 2.90 H Est Cr Clr Drug Dosing 29.3 eGFR 21.74 BUN/Creatinine Ratio 33.1 H Glucose 124 H POC Glucose 134 H 125 H Calcium 7.9 L Phosphorus 5.6 H Iron 19 L TIBC 246 L Transferrin 176 L Transferrin % Sat 8 L Ferritin 410.6 H Albumin 2.9 L 03/08/25 03/08/25 08:17 11:55 WBC RBC Hgb Hct MCV MCH MCHC RDW Std Deviation RDW Coeff of [place]te[place] Plt Count MPV Sodium Potassium Chloride Carbon Dioxide Anion Gap BUN Creatinine Est Cr Clr Drug Dosing eGFR BUN/Creatinine Ratio Glucose POC Glucose 122 H 116 H Calcium Phosphorus Iron TIBC Transferrin Transferrin % Sat Ferritin Albumin PG Care Time/CCT Total # of Minutes Spent Total Time Spent with Patient: Total time spent is greater than 50% in coordination of care (as documented) at patient's floor/unit and/or counseling patient: Coding Level of Care Code 90875 SUB INP/OBS CARE 3/50MIN Diagnoses Acute kidney failure N17.9 Chronic renal disease, stage 4, severely decreased glomerular filtration rate (GFR) between 15-29 mL/min/1.73 square meter N18.4 Lumbosacral spondylosis with radiculopathy M47.27 Hypercapnic respiratory failure J96.92 Anemia D64.9
[2025-03-08] MEDS: IRON SUCROSE 300 MG in SODIUM CHLORIDE 0.9% 250 ML IV ONE (12:38)
[2025-03-09] MEDS: HYDROmorphone INJ 0.5 MG/0.5 ML SYR IV PRN (00:39)
[2025-03-09 05:20] LABS: Hematocrit (blood only) 29.3 % (42.0-52.0); Hemoglobin 9.6 g/dl (14.0-18.0); Mean Corpuscular Hemoglobin 28.6 pg (25.0-34.0); Mean Corpuscular Hgb Conc 32.8 g/dL (32.0-36.0); Mean Corpuscular Volume 87.2 fL (80.0-100.0); Mean Platelet Volume 10.5 fL (9.4-12.4); Platelet Count 238 K/uL (130-400); RDW Coefficient of Variation 14.6 % (11.5-14.5); RDW Standard Deviation 46.2 fL (36.4-46.3); Red Blood Count 3.36 M/uL (4.70-6.10); White Blood Count 19.27 K/ul (4.8-10.8)
[2025-03-09 05:34] LABS: BUN Creatinine Ratio 32.4 (10-20); Creatinine Clr Calc Pharmacy 29.1 ml/min; Phosphorus 6.1 mg/dl (2.5-4.9); Potassium 4.3 mmol/L (3.5-5.1)
--- NOTE | 2025-03-09 07:40 | Pulmonology Progress Note ---
Date of Service March 09, 2025 Assessment & Plan (1) Acute on chronic respiratory failure with hypoxia and hypercapnia: Plan Impression: 74-year-old male with likely undiagnosed sleep disordered breathing admitted for elective back surgery with postoperative hypoxemia which is multifactorial due to combinations of VQ mismatching and atelectasis as well as hypercarbia. Clinically improving. Oxygen requirement stable. Unfortunately the patient is not particularly engaged with rehabilitation efforts. Recommendations: 1. Bilateral lower lobe atelectasis: Continue aggressive incentive spirometry. Out of bed to chair is much as tolerated and ambulate is much as tolerated. Continue aggressive incentive spirometry and out of bed to chair is much as tolerated. Discussed with bedside nurse as well as with patient. Advised him that as long as he remains supine in bed, it is unlikely that his respiratory status is going to show much improvement. I forcefully reiterated to the patient that he needs to get out of bed to the chair and start to participate in aggressive pulmonary toilet if he wants to get better. 2. Hypoxemia: Given his hypercarbia would target oxygen saturations 88-90 %. Repeat venous blood gas appeared well compensated. Bubble echocardiogram negative for shunt. If the patient would benefit from diuresis if tolerated by kidney function and cardiovascular status. 3. Likely undiagnosed sleep disordered breathing. Agree with application of positive airway pressure at night and as needed during the day. Recommend outpatient polysomnography 4. Possible pneumonia: Currently on Augmentin, would complete 7 days therapy. Procalcitonin continues to hover around 0.5 to 0.6. White blood cell count remains elevated and do not think we can necessarily attribute this to pneumonia. Evaluation per primary admitting service Management of patient's other medical issues per primary admitting service. Will continue to follow with you. Feel free to contact us with questions or concerns Admission and Anticipated Discharge Date Admission Date: February 28, 2025 Subjective Patient seen and examined. EMR reviewed. Discussed with bedside nurses and with patient. Patient reports that he is doing fine. He does not report any shortness of breath. No chest pain or palpitations. According to nursing, the patient has been recalcitrant and reluctant to try and get out of bed despite multiple efforts. He is participating in incentive spirometry. Review of Systems 2 Review of Systems: All systems reviewed & are unremarkable except as noted in Subjective Physical Exam 2 Constitutional: WD/WN, vitals as above + obese Neck: trachea midline, no thyromegaly Respiratory: normal respiratory effort, lungs clear to auscultation Cardiovascular: RRR, no murmur, no edema Gastrointestinal (Abdomen): normal bowel sounds, soft, nontender, no hepatosplenomegaly Musculoskeletal: Extremities: extremities normal to inspection Skin: no rashes, warm and dry Lymphatic: no cervical lymphadenopathy Results & Data Results & Data Vital Signs (Past 12 Hours) Vital Signs Temp Pulse Pulse Pulse Resp BP Pulse Ox 03/09/25 05:16 149/75 H 03/09/25 05:01 36.8 C 67 20 94 03/08/25 22:57 36.6 C 69 18 148/70 H 93 03/08/25 21:59 70 03/08/25 21:00 03/08/25 19:46 36.5 C 68 22 150/75 H 93 O2 Del Method O2 Flow Rate 03/09/25 05:16 03/09/25 05:01 Nasal Cannula 6 03/08/25 22:57 High Flow Nasal Cannula 7 03/08/25 21:59 03/08/25 21:00 High Flow Nasal Cannula 7 03/08/25 19:46 High Flow Nasal Cannula 7 Laboratory Results 03/09/25 04:51 03/09/25 04:51 Diagnostic Findings No new imaging PG Care Time/CCT Total # of Minutes Spent Total Time Spent with Patient: Total time spent is greater than 50% in coordination of care (as documented) at patient's floor/unit and/or counseling patient: Coding Level of Care Code 32933 SUB INP/OBS CARE 2/35MIN Diagnoses Acute on chronic respiratory failure with hypoxia and hypercapnia J96.21; J96.22
--- NOTE | 2025-03-09 09:59 | Orthopedic Progress Note ---
Date of Service March 09, 2025 Assessment & Plan (1) Lumbosacral spondylosis with radiculopathy: Plan: For orthopedic standpoint he is to continue physical therapy. Admission and Anticipated Discharge Date Admission Date: February 28, 2025 Subjective Patient states his back pain is controlled. Struggling with some anterior thigh pain with ambulation however he is doing well with therapy. Denies shortness of breath today. Physical Exam Physical Exam: Patient is in the chair at the bedside. Appears comfortable. Good strength testing. Results & Data Vital Signs (Past 12 Hours) Vital Signs Temp Pulse Pulse Pulse Resp BP Pulse Ox 03/09/25 07:49 03/09/25 07:49 62 03/09/25 07:43 36.4 C L 68 20 148/83 H 90 03/09/25 05:16 149/75 H 03/09/25 05:01 36.8 C 67 20 94 03/08/25 22:57 36.6 C 69 18 148/70 H 93 03/08/25 21:59 70 O2 Del Method O2 Flow Rate 03/09/25 07:49 High Flow Nasal Cannula 5 03/09/25 07:49 03/09/25 07:43 Nasal Cannula 03/09/25 05:16 03/09/25 05:01 Nasal Cannula 6 03/08/25 22:57 High Flow Nasal Cannula 7 03/08/25 21:59 Queries Orthopedic Spine Obesity: Yes
--- NOTE | 2025-03-09 10:11 | Hospitalist Progress Note ---
Date of Service March 09, 2025 Assessment & Plan (1) Acute on chronic respiratory failure with hypoxia and hypercapnia: Plan: Pulmonary consult appreciated likely 2nd to b/l lower lobe atelectasis con't ISB, flutter valve Postive pressure ventilation repeat CXR today showing Increased pneumonia versus atelectasis in the lung bases. echo showing no interatrial shunt 02 down to 5L (2) HAP (hospital-acquired pneumonia): Plan: -con't augmentin (3) Acute kidney failure: Plan: -cr elevated to 3.3 -nephrology consult appreciated -petty 2nd to vanco toxicity -cr 2.9 today (4) Chronic renal disease, stage 4, severely decreased glomerular filtration rate (GFR) between 15-29 mL/min/1.73 square meter: Plan: cr elevated above base of 2.4 losartan on hold (5) Hypercapnic respiratory failure: (6) T2DM (type 2 diabetes mellitus): Plan: RISS, lantus (7) Hypertension: Plan: coreg, isosorbide (8) Dyslipidemia: (9) CAD (coronary atherosclerotic disease): Plan: -cardiology consult appreciated (10) Lumbosacral spondylosis with radiculopathy: Plan: -stable from orthopedic stand point -PT and likely rehab placement Plan 74-year-old male who underwent lumbar spine surgery on 02/28/2025. He has a known history of heart failure reduced ejection fraction and chronic kidney disease stage III typically following in the [facility] system. Patient is known to have coronary disease status post stenting of an ostial LAD and diagonal 1 patient is diabetic however did receive cardiac clearance and underwent successful surgery. Postsurgery, 3 days the patient became profoundly hypoxic during physical therapy and has remained hypoxic since that time. It was discovered that he has a right sided pneumonia and was initiated on an antibiotics. Despite antibiotic care the patient continued to be hypoxic. The patient has progressed with acute kidney injury with a history of chronic kidney disease with creatinines now raising to the 3 range and BUN in the 90 range. Pulmonary medicine consulted and does not feel pneumonia is a significant player in his hypoxia but feels this is rather hypoventilation from atelectasis. Admission and Anticipated Discharge Date Admission Date: February 28, 2025 Subjective Pt sitting in chair, 02 currently at 5L/min Review of Systems Review of Systems: CONST: Negative for fever, body aches and chills. HENT: Negative for neck pain/stiffness, headache, congestion, sore throat, swelling. EYES: Negative for discharge/pain or vision changes. RESP: Negative for cough/hemoptysis and shortness of breath. CV: Negative chest pain, difficulty breathing, palpitations. ABD: Negative pain, nausea, vomiting. : Negative increase frequency, dysuria, blood in urine or stool. MUSC: Negative for muscle aches, edema. SKIN: Negative rash, lesions/sores. NEURO: Negative headache, dizziness, weakness. Physical Exam Physical Exam: GENERAL APPEARANCE NAD, activity normal for age, well developed/ well nourished, no cyanosis, pallor, or diaphoresis. EYES lids/conjunctiva normal. EARS/NOSE/THROAT Mucous membranes moist, nares normal, lips/teeth normal uvula midline without oral pharyngeal erythema, exudate or swelling TMs normal bilaterally. No lymphangitis/lymphedema. HEAD/NECK normocephalic atraumatic, no facial trauma, neck is supple. RESPIRATORY respiratory effort normal, speaks in full sentences, no tripod position, no accessory muscle use. Lungs clear to auscultation without rhonchi, wheezes, rales CARDIAC Regular rate and rhythm, no edema. ABDOMINAL Soft, ND/NT. No evidence of fluid wave. No pulsatile masses on exam, rebound tenderness, Mars sign or pain over Mcburney's point. MUSCLES/EXTREMITIES No abnormal range of motion, no swelling. SKIN Warm, pink and dry. No rashes, dermatoses, petechiae or lesions. NEUROLOGICAL Speech is clear and appropriate. Normal level of consciousness. Gait and coordination are normal. 5/5 strength in all extremities. PSYCH Normal mood and affect. Judgement/competence is appropriate Results & Data Results & Data Vital Signs (Past 12 Hours) Vital Signs Temp Pulse Pulse Pulse Resp BP Pulse Ox 03/09/25 07:49 03/09/25 07:49 62 03/09/25 07:43 36.4 C L 68 20 148/83 H 90 03/09/25 05:16 149/75 H 03/09/25 05:01 36.8 C 67 20 94 03/08/25 22:57 36.6 C 69 18 148/70 H 93 O2 Del Method O2 Flow Rate 03/09/25 07:49 High Flow Nasal Cannula 5 03/09/25 07:49 03/09/25 07:43 Nasal Cannula 03/09/25 05:16 03/09/25 05:01 Nasal Cannula 6 03/08/25 22:57 High Flow Nasal Cannula 7 PG Care Time/CCT Total # of Minutes Spent Total Time Spent with Patient: Total time spent is greater than 50% in coordination of care (as documented) at patient's floor/unit and/or counseling patient: Coding Level of Care Code 85953 SUB INP/OBS CARE 2/35MIN Diagnoses Acute on chronic respiratory failure with hypoxia and hypercapnia J96.21; J96.22 HAP (hospital-acquired pneumonia) J18.9; Y95 Acute kidney failure N17.9 Chronic renal disease, stage 4, severely decreased glomerular filtration rate (GFR) between 15-29 mL/min/1.73 square meter N18.4 Hypercapnic respiratory failure J96.92 Type 2 diabetes mellitus with diabetic nephropathy, with long-term current use of insulin E11.21; Z79.4 Diabetes mellitus terminal operations supervisor insulin use: with terminal operations supervisor use Diabetes mellitus complication status: with kidney complications Diabetes mellitus complication detail: with nephropathy Primary hypertension I10 Hypertension type: primary hypertension Dyslipidemia E78.5 Atherosclerosis of [place] coronary artery of [place] heart with other form of angina pectoris I25.118 Coronary Disease-Associated Artery/Lesion type: [place] artery [place] vs. transplanted heart: [place] heart Associated angina: with other forms of angina Lumbosacral spondylosis with radiculopathy M47.27 (6) T2DM (type 2 diabetes mellitus) Diabetes mellitus terminal operations supervisor insulin use: with skilled nursing use Diabetes mellitus complication status: with kidney complications Diabetes mellitus complication detail: with nephropathy Qualified Code(s): E11.21 - Type 2 diabetes mellitus with diabetic nephropathy; Z79.4 - residential (current) use of insulin (7) Hypertension Hypertension type: primary hypertension Qualified Code(s): I10 - Essential (primary) hypertension (9) CAD (coronary atherosclerotic disease) Coronary Disease-Associated Artery/Lesion type: [place] artery [place] vs. transplanted heart: [place] heart Associated angina: with other forms of angina Qualified Code(s): I25.118 - Atherosclerotic heart disease of [place] coronary artery with other forms of angina pectoris
--- NOTE | 2025-03-09 13:29 | Nephrology Progress Note ---
Date of Service March 09, 2025 Assessment & Plan (1) Acute kidney failure: Plan: Non-oliguric. DAMI attributed to ATN/hemodynamic + vanco. Creatinine stable at 2.9 mg/dL. BP and volume status acceptable. Electrolytes normal. No indication for INBOUND SALES CONSULTANT at this time. Losartan held. Continue to hold for now. Document strict I/O's. Repeat metabolic profile tomorrow AM. (2) Chronic renal disease, stage 4, severely decreased glomerular filtration rate (GFR) between 15-29 mL/min/1.73 square meter: Plan: Baseline creatinine 2.2-2.5 mg/dL. CKD attributed to DKD and hypertension. Medications appropriate for kidney function. Losartan held. Manish follows with Dr. Collins in [place] as an outpatient. (3) Lumbosacral spondylosis with radiculopathy: Plan: 02/28: lumbar decompression and posterior spine fusion. Manish is aiming for discharge home with . (4) Hypercapnic respiratory failure: Plan: Improving. CPAP QHS. Aggressive ISP. Pulmonology following. Remains on Augmentin for pneumonia. (5) Anemia: Plan: Anemia of CKD. No requiring REJI therapy. Tsat low, ferritin 410. Venofer 300 mg IV x 1 provided yesterday with additional 400 mg IV today. Admission and Anticipated Discharge Date Admission Date: February 28, 2025 Subjective No acute events overnight. Manish was seen and evaluated with his sister and cousin at the bedside. I discussed the plan of care with Dr. Saleh earlier today. Manish is breathing comfortably at rest. O2 is being weaned. He continues to endorse some dyspnea with minimal activity. No fevers or chills. He denies significant pain. He remains non-oliguric. He denies fluid retention or edema. Review of Systems Review of Systems: All systems reviewed & are unremarkable except as noted in HPI & below Physical Exam Constitutional: WD/WN, vitals as above no acute distress Eyes: + anicteric sclerae Neck: normal visual inspection Respiratory: normal respiratory effort Auscultation: lungs clear to auscultation bilaterally Cardiovascular: RRR, no murmur, no edema Gastrointestinal (Abdomen): Inspection/Auscultation: abdomen normal to inspection Musculoskeletal: Extremities: extremities normal to inspection Skin: no rashes, warm and dry Neurologic: no focal motor deficits Psychiatric: Orientation: alert and oriented x 3 Affect: euthymic affect Results & Data Vital Signs (Past 12 Hours) Vital Signs Temp Pulse Pulse Pulse Resp BP Pulse Ox 03/09/25 11:24 36.3 C L 81 20 145/71 H 94 03/09/25 07:49 03/09/25 07:49 62 03/09/25 07:43 36.4 C L 68 20 148/83 H 90 03/09/25 05:16 149/75 H 03/09/25 05:01 36.8 C 67 20 94 O2 Del Method O2 Flow Rate 03/09/25 11:24 High Flow Nasal Cannula 03/09/25 07:49 High Flow Nasal Cannula 5 03/09/25 07:49 03/09/25 07:43 Nasal Cannula 03/09/25 05:16 03/09/25 05:01 Nasal Cannula 6 Laboratory Results Laboratory Results - last 24 hr 03/08/25 03/08/25 03/09/25 16:50 20:19 04:51 WBC 19.27 H RBC 3.36 L Hgb 9.6 L Hct 29.3 L MCV 87.2 MCH 28.6 MCHC 32.8 RDW Std Deviation 46.2 RDW Coeff of Ortega 14.6 H Plt Count 238 MPV 10.5 Sodium 139 Potassium 4.3 Chloride 107 Carbon Dioxide 24 Anion Gap 8 BUN 94 H Creatinine 2.90 H Est Cr Clr Drug Dosing 29.1 eGFR 21.74 BUN/Creatinine Ratio 32.4 H Glucose 122 H POC Glucose 155 H 157 H Calcium 8.0 L Phosphorus 6.1 H Albumin 3.0 L 03/09/25 03/09/25 08:02 11:54 WBC RBC Hgb Hct MCV MCH MCHC RDW Std Deviation RDW Coeff of Ortega Plt Count MPV Sodium Potassium Chloride Carbon Dioxide Anion Gap BUN Creatinine Est Cr Clr Drug Dosing eGFR BUN/Creatinine Ratio Glucose POC Glucose 110 H 132 H Calcium Phosphorus Albumin PG Care Time/CCT Total # of Minutes Spent Total Time Spent with Patient: Total time spent is greater than 50% in coordination of care (as documented) at patient's floor/unit and/or counseling patient: Coding Level of Care Code 39642 SUB INP/OBS CARE 3/50MIN Diagnoses Acute kidney failure N17.9 Chronic renal disease, stage 4, severely decreased glomerular filtration rate (GFR) between 15-29 mL/min/1.73 square meter N18.4 Lumbosacral spondylosis with radiculopathy M47.27 Hypercapnic respiratory failure J96.92 Anemia D64.9
[2025-03-09] MEDS: IRON SUCROSE 400 MG in SODIUM CHLORIDE 0.9% 250 ML IV ONE (14:03)
[2025-03-10 06:17] LABS: Hematocrit (blood only) 29.4 % (42.0-52.0); Hemoglobin 9.6 g/dl (14.0-18.0); Mean Corpuscular Hemoglobin 28.6 pg (25.0-34.0); Mean Corpuscular Hgb Conc 32.7 g/dL (32.0-36.0); Mean Corpuscular Volume 87.5 fL (80.0-100.0); Mean Platelet Volume 10.4 fL (9.4-12.4); Platelet Count 262 K/uL (130-400); RDW Coefficient of Variation 14.4 % (11.5-14.5); RDW Standard Deviation 46.3 fL (36.4-46.3); Red Blood Count 3.36 M/uL (4.70-6.10); White Blood Count 18.07 K/ul (4.8-10.8)
[2025-03-10 08:17] LABS: Albumin Level 2.9 gm/dl (3.4-5.0); BUN Creatinine Ratio 32.7 (10-20); Calcium 8.1 mg/dl (8.6-10.3); Creatinine Clr Calc Pharmacy 30.4 ml/min; Phosphorus 5.6 mg/dl (2.5-4.9); Potassium 4.1 mmol/L (3.5-5.1)
--- NOTE | 2025-03-10 08:39 | Pulmonology Progress Note ---
Date of Service March 10, 2025 Assessment & Plan (1) Acute on chronic respiratory failure with hypoxia and hypercapnia: (2) Atelectasis: (3) HAP (hospital-acquired pneumonia): (4) Acute systolic (congestive) heart failure: (5) Pleural effusion: Plan Impression: 74-year-old male with likely undiagnosed sleep disordered breathing admitted for elective back surgery with postoperative hypoxemia which is multifactorial due to combinations of VQ mismatching and atelectasis as well as hypercarbia. Clinically improving. Oxygen requirement stable and weaning this am. Bilateral lower lobe atelectasis: -Continue aggressive incentive spirometry using it up to 10x per hour. -Out of bed to chair is much as tolerated and ambulate is much as tolerated. -Discussed with patient the importance of performing ISB and being as active. Hypoxemia: -target oxygen saturations 88-90 %. -Bubble echocardiogram negative for shunt. -Cont diuresis Likely undiagnosed sleep disordered breathing. -Agree with application of positive airway pressure at night and as needed during the day. -Recommend outpatient polysomnography Possible pneumonia/aspiration: -Currently on Augmentin, would complete 7 days therapy. -Procalcitonin continues to hover around 0.5 to 0.6. -White blood cell count remains elevated and do not think we can necessarily attribute this to pneumonia. -Patient afebrile through out hospital course. Management of patient's other medical issues per primary admitting service. Will continue to follow with you. Feel free to contact us with questions or concerns Admission and Anticipated Discharge Date Admission Date: February 28, 2025 Supervising Physician Co-Signing Physician Notes I saw and evaluated the patient with MIMA Cesar, and agree with findings and plan as documented in the note. Patient seen and examined at bedside. No acute distress, no adverse events overnight He was saturating 95% on 5 L nasal cannula at rest. He was about to start his physical therapy He denied any chest pain, no abdominal pain No headache, no nausea or vomiting. Fair appetite Patient's is also in the room. As per the patient does snore significantly at night CT chest 03/03/2025 personally reviewed: Small right-sided pleural effusion, minimal left-sided pleural effusion Elevated right hemidiaphragm with dependent atelectasis bilateral lower lobe Minimal left paratracheal mediastinal lymphadenopathy 2D echo 03/07/2025: EF 30-35%, moderate global hypokinesis, mild concentric LVH no interatrial shunt Constitutional: No acute distress HEENT: EOMI, PERRLA Respiratory system: Decreased air entry bilaterally, more decreased on the right lower side, no wheeze, no rhonchi, mild crackles bilateral lower lobe CVS: S1-S2 positive, no murmurs or gallops Abdomen: Soft, nontender, nondistended, positive bowel sounds x4, obese Extremities: +2 pulses bilaterally radialis/ dorsalis pedis, no cyanosis, no edema Neuro: Awake alert oriented x3 Psych: Normal mood and affect G/U: No [place] Plan: In/out: -510, urine output 1525, +1.8 L since coming to the hospital Continue with diuretics to keep the patient negative balance Continue with incentive spirometry Continue with O2 supplementation to keep oxygen saturation between 90-92% Recommend outpatient polysomnography. Continue with BiPAP nightly and as needed shortness of breath Complete the course of antibiotics I spent more than 50 minutes looking in the chart, images, discussing with outgoing physician, discussing the plan of care with the patient, RN as well as primary team Please note the above document was generated using voice recognition software. It may contain grammatical, syntax or spelling errors.Any formal questions or concerns about the content, text or information contained within the body of this dictation should be directly addressed to the provider for clarification. Subjective "My breathing is doing better." "The only thing bothering me right now is my right leg. "I do my ISB 2 times per hour." Patient having clinical improvement with SpO2 96% on 5 liters nasal cannula. Oxygen titarted down to 4 liters. Will continue to wean oxygen as toelrated. Review of Systems 2 Review of Systems: All systems reviewed & are unremarkable except as noted in Subjective Physical Exam 2 Constitutional: WD/WN, vitals as above + obese and cooperative Neck: trachea midline, no thyromegaly Respiratory: normal respiratory effort, lungs clear to auscultation Cardiovascular: RRR, no murmur, no edema Gastrointestinal (Abdomen): normal bowel sounds, soft, nontender, no hepatosplenomegaly Musculoskeletal: Extremities: extremities normal to inspection (Pain in thigh of right lower extremity) Skin: no rashes, warm and dry Lymphatic: no cervical lymphadenopathy Results & Data Results & Data Vital Signs (Past 12 Hours) Vital Signs Temp Pulse Pulse Pulse Resp BP Pulse Ox 03/10/25 08:19 36.5 C 66 20 155/74 H 92 03/10/25 03:30 36.4 C L 65 18 149/69 H 94 03/09/25 23:30 68 20 96 03/09/25 23:25 36.4 C L 64 20 160/73 H 92 03/09/25 21:45 64 03/09/25 21:30 O2 Del Method O2 Flow Rate FiO2 03/10/25 08:19 High Flow Nasal Cannula 5 03/10/25 03:30 Nasal Cannula 5 03/09/25 23:30 40 03/09/25 23:25 Nasal Cannula 5 03/09/25 21:45 03/09/25 21:30 High Flow Nasal Cannula 5 Laboratory Results 03/10/25 05:44 03/10/25 05:44 Abnormal Lab Results 03/09/25 03/09/25 03/09/25 11:54 17:30 20:17 WBC RBC Hgb Hct MCV MCH MCHC RDW Std Deviation RDW Coeff of Ortega Plt Count MPV Sodium Potassium Chloride Carbon Dioxide Anion Gap BUN Creatinine Est Cr Clr Drug Dosing eGFR BUN/Creatinine Ratio Glucose POC Glucose 132 H 108 H 101 H Calcium Phosphorus Albumin 03/10/25 03/10/25 03/10/25 05:44 07:56 07:57 WBC 18.07 H RBC 3.36 L Hgb 9.6 L Hct 29.4 L MCV 87.5 MCH 28.6 MCHC 32.7 RDW Std Deviation 46.3 RDW Coeff of Ortega 14.4 Plt Count 262 MPV 10.4 Sodium 141 Potassium 4.1 Chloride 107 Carbon Dioxide 25 Anion Gap 9 BUN 90 H Creatinine 2.75 H Est Cr Clr Drug Dosing 30.4 eGFR 23.17 BUN/Creatinine Ratio 32.7 H Glucose 69 L POC Glucose 65 L* 68 L* Calcium 8.1 L Phosphorus 5.6 H Albumin 2.9 L 03/10/25 08:24 WBC RBC Hgb Hct MCV MCH MCHC RDW Std Deviation RDW Coeff of Ortega Plt Count MPV Sodium Potassium Chloride Carbon Dioxide Anion Gap BUN Creatinine Est Cr Clr Drug Dosing eGFR BUN/Creatinine Ratio Glucose POC Glucose 67 L* Calcium Phosphorus Albumin Diagnostic Findings CXR 03/07/2025 @ 0740 IMPRESSION: Increased pneumonia versus atelectasis in the lung bases. PG Care Time/CCT Total # of Minutes Spent Total Time Spent with Patient: Total time spent is greater than 50% in coordination of care (as documented) at patient's floor/unit and/or counseling patient: Coding Level of Care Code 06568 SUB INP/OBS CARE 3/50MIN Diagnoses Acute on chronic respiratory failure with hypoxia and hypercapnia J96.21; J96.22 Atelectasis J98.11 HAP (hospital-acquired pneumonia) J18.9; Y95 Acute systolic (congestive) heart failure I50.21 Pleural effusion J90
--- NOTE | 2025-03-10 10:10 | Nephrology Progress Note ---
Date of Service March 10, 2025 Assessment & Plan (1) Acute kidney failure: Plan: Non-oliguric. DAMI attributed to ATN/hemodynamic + vanco. Creatinine continues to trend down slowly - 2.75 mg/dL. BP and volume status acceptable. Electrolytes normal. No indication for SCHOOL ADMINISTRATOR at this time. Losartan held. Continue to hold for now. Document strict I/O's. Repeat metabolic profile tomorrow AM. (2) Chronic renal disease, stage 4, severely decreased glomerular filtration rate (GFR) between 15-29 mL/min/1.73 square meter: Plan: Baseline creatinine 2.2-2.5 mg/dL. CKD attributed to DKD and hypertension. Medications appropriate for kidney function. Losartan held. Manish follows with Dr. Collins in [place] as an outpatient. (3) Lumbosacral spondylosis with radiculopathy: Plan: 02/28: lumbar decompression and posterior spine fusion. Manish is aiming for discharge home with . (4) Anemia: Plan: Anemia of CKD. No requiring REJI therapy. Tsat low, ferritin 410. Will complete loading dose of Venofer with additional 300 mg IV this AM. Admission and Anticipated Discharge Date Admission Date: February 28, 2025 Subjective No acute events overnight. Manish feels well this AM. Continues to report some lower back and right leg discomfort. He denies significant pain. No fevers or chills. Denies fluid retention or edema. Review of Systems Review of Systems: All systems reviewed & are unremarkable except as noted in HPI & below Physical Exam Constitutional: WD/WN, vitals as above no acute distress Eyes: + anicteric sclerae Neck: normal visual inspection Respiratory: normal respiratory effort Auscultation: lungs clear to auscultation bilaterally Cardiovascular: RRR, no murmur, no edema Gastrointestinal (Abdomen): Inspection/Auscultation: abdomen normal to inspec tion Musculoskeletal: Extremities: extremities normal to inspection Skin: no rashes, warm and dry Neurologic: no focal motor deficits Psychiatric: Orientation: alert and oriented x 3 Affect: euthymic affect Results & Data Vital Signs (Past 12 Hours) Vital Signs Temp Pulse Pulse Pulse Resp BP Pulse Ox 03/10/25 08:19 36.5 C 66 20 155/74 H 92 03/10/25 03:30 36.4 C L 65 18 149/69 H 94 03/09/25 23:30 68 20 96 03/09/25 23:25 36.4 C L 64 20 160/73 H 92 O2 Del Method O2 Flow Rate FiO2 03/10/25 08:19 High Flow Nasal Cannula 5 03/10/25 03:30 Nasal Cannula 5 03/09/25 23:30 40 03/09/25 23:25 Nasal Cannula 5 Laboratory Results Laboratory Results - last 24 hr 03/09/25 03/09/25 03/09/25 11:54 17:30 20:17 WBC RBC Hgb Hct MCV MCH MCHC RDW Std Deviation RDW Coeff of Ortega Plt Count MPV Sodium Potassium Chloride Carbon Dioxide Anion Gap BUN Creatinine Est Cr Clr Drug Dosing eGFR BUN/Creatinine Ratio Glucose POC Glucose 132 H 108 H 101 H Calcium Phosphorus Albumin 03/10/25 03/10/25 03/10/25 05:44 07:56 07:57 WBC 18.07 H RBC 3.36 L Hgb 9.6 L Hct 29.4 L MCV 87.5 MCH 28.6 MCHC 32.7 RDW Std Deviation 46.3 RDW Coeff of Ortega 14.4 Plt Count 262 MPV 10.4 Sodium 141 Potassium 4.1 Chloride 107 Carbon Dioxide 25 Anion Gap 9 BUN 90 H Creatinine 2.75 H Est Cr Clr Drug Dosing 30.4 eGFR 23.17 BUN/Creatinine Ratio 32.7 H Glucose 69 L POC Glucose 65 L* 68 L* Calcium 8.1 L Phosphorus 5.6 H Albumin 2.9 L 03/10/25 03/10/25 08:24 09:18 WBC RBC Hgb Hct MCV MCH MCHC RDW Std Deviation RDW Coeff of Ortega Plt Count MPV Sodium Potassium Chloride Carbon Dioxide Anion Gap BUN Creatinine Est Cr Clr Drug Dosing eGFR BUN/Creatinine Ratio Glucose POC Glucose 67 L* 96 Calcium Phosphorus Albumin PG Care Time/CCT Total # of Minutes Spent Total Time Spent with Patient: Total time spent is greater than 50% in coordination of care (as documented) at patient's floor/unit and/or counseling patient: Coding Level of Care Code 16648 SUB INP/OBS CARE 3/50MIN Diagnoses Acute kidney failure N17.9 Chronic renal disease, stage 4, severely decreased glomerular filtration rate (GFR) between 15-29 mL/min/1.73 square meter N18.4 Lumbosacral spondylosis with radiculopathy M47.27 Anemia D64.9
[2025-03-10] MEDS: IRON SUCROSE 300 MG in SODIUM CHLORIDE 0.9% 250 ML IV ONE (10:15)
--- NOTE | 2025-03-10 10:15 | Hospitalist Progress Note ---
Date of Service March 10, 2025 Assessment & Plan (1) Acute on chronic respiratory failure with hypoxia and hypercapnia: Plan: Pulmonary consult appreciated likely 2nd to b/l lower lobe atelectasis con't ISB, flutter valve Postive pressure ventilation repeat CXR showing Increased pneumonia versus atelectasis in the lung bases. echo showing no interatrial shunt PT still on 5L NC (2) HAP (hospital-acquired pneumonia): Plan: -con't augmentin (3) Acute kidney failure: Plan: -cr elevated to 3.3 -nephrology consult appreciated -petty 2nd to vanco toxicity -cr 2.75 today (4) Chronic renal disease, stage 4, severely decreased glomerular filtration rate (GFR) between 15-29 mL/min/1.73 square meter: Plan: cr elevated above base of 2.4 losartan on hold (5) Hypercapnic respiratory failure: (6) T2DM (type 2 diabetes mellitus): Plan: RISS, lantus (7) Hypertension: Plan: coreg, isosorbide (8) Dyslipidemia: (9) CAD (coronary atherosclerotic disease): Plan: -cardiology consult appreciated (10) Lumbosacral spondylosis with radiculopathy: Plan: -stable from orthopedic stand point -PT recommending Rehab placement Plan 74-year-old male who underwent lumbar spine surgery on 02/28/2025. He has a known history of heart failure reduced ejection fraction and chronic kidney disease stage III typically following in the [facility]. Patient is known to have coronary disease status post stenting of an ostial LAD and diagonal 1 patient is diabetic however did receive cardiac clearance and underwent successful surgery. Postsurgery, 3 days the patient became profoundly hypoxic during physical therapy and has remained hypoxic since that time. It was discovered that he has a right sided pneumonia and was initiated on an antibiotics. Despite antibiotic care the patient continued to be hypoxic. The patient has progressed with acute kidney injury with a history of chronic kidney disease with creatinines now raising to the 3 range and BUN in the 90 range. Pulmonary medicine consulted and does not feel pneumonia is a significant player in his hypoxia but feels this is rather hypoventilation from atelectasis. Admission and Anticipated Discharge Date Admission Date: February 28, 2025 Subjective No events overnight. Pt getting up to use commode, using 5LNC. Review of Systems Review of Systems: CONST: Negative for fever, body aches and chills. HENT: Negative for neck pain/stiffness, headache, congestion, sore throat, swelling. EYES: Negative for discharge/pain or vision changes. RESP: Negative for cough/hemoptysis and shortness of breath. CV: Negative chest pain, difficulty breathing, palpitations. ABD: Negative pain, nausea, vomiting. : Negative increase frequency, dysuria, blood in urine or stool. MUSC: Negative for muscle aches, edema. SKIN: Negative rash, lesions/sores. NEURO: Negative headache, dizziness, weakness. Physical Exam Physical Exam: GENERAL APPEARANCE NAD, activity normal for age, well developed/ well nourished, no cyanosis, pallor, or diaphoresis. EYES lids/conjunctiva normal. EARS/NOSE/THROAT Mucous membranes moist, nares normal, lips/teeth normal uvula midline without oral pharyngeal erythema, exudate or swelling TMs normal bilaterally. No lymphangitis/lymphedema. HEAD/NECK normocephalic atraumatic, no facial trauma, neck is supple. RESPIRATORY respiratory effort normal, speaks in full sentences, no tripod position, no accessory muscle use. Lungs clear to auscultation without rhonchi, wheezes, rales CARDIAC Regular rate and rhythm, no edema. ABDOMINAL Soft, ND/NT. No evidence of fluid wave. No pulsatile masses on exam, rebound tenderness, Mars sign or pain over Mcburney's point. MUSCLES/EXTREMITIES No abnormal range of motion, no swelling. SKIN Warm, pink and dry. No rashes, dermatoses, petechiae or lesions. NEUROLOGICAL Speech is clear and appropriate. Normal level of consciousness. Gait and coordination are normal. 5/5 strength in all extremities. PSYCH Normal mood and affect. Judgement/competence is appropriate Results & Data Results & Data Vital Signs (Past 12 Hours) Vital Signs Temp Pulse Pulse Pulse Resp BP Pulse Ox 03/10/25 08:19 36.5 C 66 20 155/74 H 92 03/10/25 03:30 36.4 C L 65 18 149/69 H 94 03/09/25 23:30 68 20 96 03/09/25 23:25 36.4 C L 64 20 160/73 H 92 O2 Del Method O2 Flow Rate FiO2 03/10/25 08:19 High Flow Nasal Cannula 5 03/10/25 03:30 Nasal Cannula 5 03/09/25 23:30 40 03/09/25 23:25 Nasal Cannula 5 PG Care Time/CCT Total # of Minutes Spent Total Time Spent with Patient: Total time spent is greater than 50% in coordination of care (as documented) at patient's floor/unit and/or counseling patient: Coding Level of Care Code 67938 SUB INP/OBS CARE 2/35MIN Diagnoses Acute on chronic respiratory failure with hypoxia and hypercapnia J96.21; J96.22 HAP (hospital-acquired pneumonia) J18.9; Y95 Acute kidney failure N17.9 Chronic renal disease, stage 4, severely decreased glomerular filtration rate (GFR) between 15-29 mL/min/1.73 square meter N18.4 Hypercapnic respiratory failure J96.92 Type 2 diabetes mellitus with diabetic nephropathy, with long-term current use of insulin E11.21; Z79.4 Diabetes mellitus superintendent container terminal insulin use: with retirement use Diabetes mellitus complication status: with kidney complications Diabetes mellitus complication detail: with nephropathy Primary hypertension I10 Hypertension type: primary hypertension Dyslipidemia E78.5 Atherosclerosis of [place] coronary artery of [place] heart with other form of angina pectoris I25.118 Coronary Disease-Associated Artery/Lesion type: [place] artery [place] vs. transplanted heart: [place] heart Associated angina: with other forms of angina Lumbosacral spondylosis with radiculopathy M47.27 (6) T2DM (type 2 diabetes mellitus) Diabetes mellitus superintendent container terminal insulin use: with retirement use Diabetes mellitus complication status: with kidney complications Diabetes mellitus complication detail: with nephropathy Qualified Code(s): E11.21 - Type 2 diabetes mellitus with diabetic nephropathy; Z79.4 - intermediate (current) use of insulin (7) Hypertension Hypertension type: primary hypertension Qualified Code(s): I10 - Essential (primary) hypertension (9) CAD (coronary atherosclerotic disease) Coronary Disease-Associated Artery/Lesion type: [place] artery [place] vs. transplanted heart: [place] heart Associated angina: with other forms of angina Qualified Code(s): I25.118 - Atherosclerotic heart disease of [place] coronary artery with other forms of angina pectoris
--- NOTE | 2025-03-10 12:06 | Orthopedic Progress Note ---
Date of Service March 10, 2025 Assessment & Plan (1) Lumbosacral spondylosis with radiculopathy: Plan: At this time he is to continue therapy as tolerated. Disposition is based on medical improvement. Admission and Anticipated Discharge Date Admission Date: February 28, 2025 Subjective Patient's back pain is controlled leg symptoms are improving. He is tolerating ambulation. Physical Exam Physical Exam: Patient is up and ambulating with PT. Results & Data Vital Signs (Past 12 Hours) Vital Signs Temp Pulse Pulse Resp BP Pulse Ox O2 Del Method 03/10/25 08:19 36.5 C 66 20 155/74 H 92 High Flow Nasal Cannula 03/10/25 03:30 36.4 C L 65 18 149/69 H 94 Nasal Cannula O2 Flow Rate 03/10/25 08:19 5 03/10/25 03:30 5 Queries Orthopedic Spine Obesity: Yes
--- NOTE | 2025-03-10 12:44 | Pharmacy Report ---
Pharmacy Glycemic Short Note 2 - Date of Service March 10, 2025 - Glycemic Short BSG Results (Last 24 hours): 03/09/25 03/09/25 03/10/25 17:30 20:17 05:44 Glucose 69 L POC Glucose 108 H 101 H 03/10/25 03/10/25 03/10/25 07:56 07:57 08:24 Glucose POC Glucose 65 L* 68 L* 67 L* 03/10/25 03/10/25 09:18 12:21 Glucose POC Glucose 96 130 H OUTPATIENT ANTIDIABETIC REGIMEN: * Degludec 100 units SC BID * Lispro 35 units with break & lunch, 45 units with dinner * Semaglutide 1 mg SC once weekly A1c = 6.8% (January 2025) ASSESSMENT: 03/10 * Patient received a total of 10 units of insulin yesterday (all were basal). BSGs were mostly all below goal range. * Fasting BSG was 68mg/dL. No Lantus will be given this morning. Bolus insulin regimen will be continued as previously ordered without change. 03/08 * Ted received 1 unit of correctional insulin yesterday * Fasting BSG this AM below goal on blood draw and then POC within goal range. Suspect that BSGs will rise without any basal insulin, will give low dose basal this AM and continue to follow. Potentially extended duration of action with renal dysfunction? * NovoLog carbohydrate ratio tighten slightly. 03/05 * Patient required significantly less insulin yesterday than previous days (total of 31 units of insulin of which 20 units were basal) and he still dropped below the goal range last evening. No basal insulin was given last evening. Patient reportedly did not have much oral intake yesterday. * Fasting BSG was 52mg/dL this morning and improved to 99/147mg/dL after receiving D50. Lantus insulin was held again this morning and the CR of the bolus insulin was loosened. Will consider adding a small Lantus scale tonight if he continues eating today and BSGs start trending back up. 03/03 * Ted received a total of 313 units of insulin yesterday (220 units were basal and 93 units were bolus). BSGs were all above goal despite increased insulin usage. * Fasting BSG today was 105mg/dL. Today is the last day of scheduled dexamethasone so it is expected that insulin needs will decrease as the steroids wear off. Will continue lantus scale (reduced to 40, 60, or 80 units based on BSG) and bolus insulin as previously ordered. Will likely need to loosen bolus insulin parameters tomorrow morning. 03/01 * Ted is a 74yo M with PMH of type II DM, POLO, CAD with PCI, CKD IV who is POD # 1 s/p lumbar decompression and fusion. Patient experienced postop hypercapnic respiratory failure and prolonged sedation. Scr trending up. * He is ordered high dose IV steroids, dexamethasone 6 mg IV daily. Anticipate steroid induced hyperglycemia. * Patient with decent BSG control overnight after receiving reduced dose of Lantus 25 units at HS. Fasting BSG of 170 mg/dL this AM. Trended up to 278 mg/dL at lunch. * Increase basal insulin. Lantus 40 units given with breakfast and lunch. Will start Lantus per BSG scale this evening (max daily dose will be 20% decrease in home dose). Tighten Novolog CF and CR. PLAN FOR INPATIENT GLYCEMIC CONTROL: * Hold outpatient diabetes medications * Basal insulin * Lantus 10 units SQ daily * Bolus insulin * NovoLog per scale ACHS or Q6hrs while NPO * Goal Range: Low 110 mg/dL - High 140 mg/dL * Correction Factor: 20 mg/dL/unit * Nutritional / Prandial insulin per carb ratio of 1 unit per 15 grams CHO consumed
[2025-03-11 04:54] LABS: Hematocrit (blood only) 28.6 % (42.0-52.0); Hemoglobin 9.3 g/dl (14.0-18.0); Mean Corpuscular Hemoglobin 28.9 pg (25.0-34.0); Mean Corpuscular Hgb Conc 32.5 g/dL (32.0-36.0); Mean Corpuscular Volume 88.8 fL (80.0-100.0); Mean Platelet Volume 10.6 fL (9.4-12.4); Nucleated RBC # (auto) 0.02 K/uL (0.00-0.12); Nucleated RBC % (auto) 0.1 %; Platelet Count 260 K/uL (130-400); RDW Coefficient of Variation 14.3 % (11.5-14.5); RDW Standard Deviation 45.5 fL (36.4-46.3); Red Blood Count 3.22 M/uL (4.70-6.10); White Blood Count 18.03 K/ul (4.8-10.8)
[2025-03-11 08:08] LABS: BUN Creatinine Ratio 32.3 (10-20); Creatinine Clr Calc Pharmacy 32.9 ml/min; Potassium 4.2 mmol/L (3.5-5.1)
--- NOTE | 2025-03-11 08:50 | Pulmonology Progress Note ---
Date of Service March 11, 2025 Assessment & Plan (1) Acute on chronic respiratory failure with hypoxia and hypercapnia: (2) Atelectasis: (3) HAP (hospital-acquired pneumonia): (4) Acute systolic (congestive) heart failure: (5) Pleural effusion: Plan Impression: 74-year-old male with likely undiagnosed sleep disordered breathing admitted for elective back surgery with postoperative hypoxemia which is multifactorial due to combinations of VQ mismatching and atelectasis as well as hypercarbia. Clinically improving. Oxygen requirement stable and weaning this am. Bilateral lower lobe atelectasis: -Continue aggressive incentive spirometry using it up to 10x per hour. -Out of bed to chair is much as tolerated and ambulate is much as tolerated. -Discussed with patient the importance of performing ISB and being as active. Hypoxemia: -target oxygen saturations 88-90 %. -Bubble echocardiogram negative for shunt. -Cont diuresis Likely undiagnosed sleep disordered breathing. -Agree with application of positive airway pressure at night and as needed during the day. -Recommend outpatient polysomnography Possible pneumonia/aspiration: -Currently on Augmentin, complete 7 day course on 03/12/2025. -Procalcitonin has hovered around 0.5 to 0.6. -White blood cell count remains elevated but stable at 18.03 and do not think we can necessarily attribute this to pneumonia. -Patient afebrile through out hospital course. Management of patient's other medical issues per primary admitting service. Will continue to follow with you. Feel free to contact us with questions or concerns Admission and Anticipated Discharge Date Admission Date: February 28, 2025 Supervising Physician Co-Signing Physician Notes I saw and evaluated the patient with MIMA Abdi, and agree with findings and plan as documented in the note. CT chest 03/03/2025 personally reviewed: Small right-sided pleural effusion, minimal left-sided pleural effusion Elevated right hemidiaphragm with dependent atelectasis bilateral lower lobe Minimal left paratracheal mediastinal lymphadenopathy 2D echo 03/07/2025: EF 30-35%, moderate global hypokinesis, mild concentric LVH no interatrial shunt Patient seen and examined at bedside. No acute distress, no adverse event overnight He was saturating 92% on 1 L nasal cannula at rest. He stated that he is feeling better when it comes to her breathing Denied any nausea or vomiting Was walking around with the physical therapy. He stated that he is gaining his strength back. He did use BiPAP overnight Constitutional: No acute distress HEENT: EOMI, PERRLA Respiratory system: Decreased air entry bilaterally, more decreased on the right lower side, no wheeze, no rhonchi, mild crackles bilateral lower lobe CVS: S1-S2 positive, no murmurs or gallops Abdomen: Soft, nontender, nondistended, positive bowel sounds x4, obese Extremities: +2 pulses bilaterally radialis/ dorsalis pedis, no cyanosis, minimal pitting edema bilateral lower extremity Neuro: Awake alert oriented x3 Psych: Normal mood and affect G/U: No [place] Plan: In/out: +1.6 L since coming to the hospital Complete the course of antibiotics Continue with incentive spirometry Continue with O2 supplementation to keep oxygen saturation between 90-92% Patient will probably need oxygen on exertion on discharge. Recommend outpatient polysomnography. Continue with BiPAP nightly and as needed shortness of breath No further recommendation from pulmonary perspective, will sign off Please call directly with any questions Please note the above document was generated using voice recognition software. It may contain grammatical, syntax or spelling errors.Any formal questions or concerns about the content, text or information contained within the body of this dictation should be directly addressed to the provider for clarification. Subjective "I feel good." "No issues with breathing." "Those physical therapist worked me out yesterday." Patient oxygen down to 2 liters nasal cannula with SpO2 92-93%. Attempted to turn oxygen off with desat to 89%. Patient wore CPAP overnight. ISB being done per patient a few times per hour. When observed able to get about 1 liter of inspiratory volume. Review of Systems 2 Review of Systems: All systems reviewed & are unremarkable except as noted in HPI & below Physical Exam 2 Constitutional: WD/WN, vitals as above + obese and cooperative Neck: trachea midline, no thyromegaly Respiratory: normal respiratory effort, lungs clear to auscultation Cardiovascular: RRR, no murmur, no edema Gastrointestinal (Abdomen): normal bowel sounds, soft, nontender, no hepatosplenomegaly Musculoskeletal: Extremities: extremities normal to inspection (Pain in thigh of right lower extremity) Skin: no rashes, warm and dry Lymphatic: no cervical lymphadenopathy Results & Data Results & Data Vital Signs (Past 12 Hours) Vital Signs Temp Pulse Pulse Pulse Resp BP BP 03/11/25 07:25 36.5 C 66 19 158/69 H 03/11/25 04:32 36.5 C 66 18 155/69 H 03/11/25 01:59 03/10/25 23:51 37.2 C 63 18 152/70 H 03/10/25 22:32 66 18 Pulse Ox O2 Del Method O2 Flow Rate FiO2 03/11/25 07:25 93 Nasal Cannula 3 03/11/25 04:32 93 Nasal Cannula 3 03/11/25 01:59 Nasal Cannula, CPAP 2 03/10/25 23:51 98 CPAP 03/10/25 22:32 95 40 Laboratory Results 03/11/25 04:26 03/11/25 04:28 Abnormal Lab Results 03/10/25 03/10/25 03/10/25 09:18 12:21 16:48 WBC RBC Hgb Hct MCV MCH MCHC RDW Std Deviation RDW Coeff of Ortega Plt Count MPV Absolute Nucleated RBC Nucleated RBC % (auto) Sodium Potassium Chloride Carbon Dioxide Anion Gap BUN Creatinine Est Cr Clr Drug Dosing eGFR BUN/Creatinine Ratio Glucose POC Glucose 96 130 H 158 H Calcium 03/10/25 03/11/25 03/11/25 20:38 04:26 04:28 WBC 18.03 H RBC 3.22 L Hgb 9.3 L Hct 28.6 L MCV 88.8 MCH 28.9 MCHC 32.5 RDW Std Deviation 45.5 RDW Coeff of Ortega 14.3 Plt Count 260 MPV 10.6 Absolute Nucleated RBC 0.02 Nucleated RBC % (auto) 0.1 Sodium 141 Potassium 4.2 Chloride 108 H Carbon Dioxide 26 Anion Gap 7 BUN 82 H Creatinine 2.54 H Est Cr Clr Drug Dosing 32.9 eGFR 25.49 BUN/Creatinine Ratio 32.3 H Glucose 97 POC Glucose 132 H Calcium 8.0 L 03/11/25 08:08 WBC RBC Hgb Hct MCV MCH MCHC RDW Std Deviation RDW Coeff of Ortega Plt Count MPV Absolute Nucleated RBC Nucleated RBC % (auto) Sodium Potassium Chloride Carbon Dioxide Anion Gap BUN Creatinine Est Cr Clr Drug Dosing eGFR BUN/Creatinine Ratio Glucose POC Glucose 96 Calcium Diagnostic Findings No recent imaging. PG Care Time/CCT Total # of Minutes Spent Total Time Spent with Patient: Total time spent is greater than 50% in coordination of care (as documented) at patient's floor/unit and/or counseling patient: Coding Level of Care Code 10012 SUB INP/OBS CARE 2/35MIN Diagnoses Acute on chronic respiratory failure with hypoxia and hypercapnia J96.21; J96.22 Atelectasis J98.11 HAP (hospital-acquired pneumonia) J18.9; Y95 Acute systolic (congestive) heart failure I50.21 Pleural effusion J90
--- NOTE | 2025-03-11 10:19 | Hospitalist Progress Note ---
Date of Service March 11, 2025 Assessment & Plan (1) Acute on chronic respiratory failure with hypoxia and hypercapnia: Plan: Pulmonary consult appreciated likely 2nd to b/l lower lobe atelectasis con't ISB, flutter valve Postive pressure ventilation repeat CXR showing Increased pneumonia versus atelectasis in the lung bases. echo showing no interatrial shunt PT down to 3LNC today (2) HAP (hospital-acquired pneumonia): Plan: -con't augmentin (3) Acute kidney failure: Plan: -cr elevated to 3.3 -nephrology consult appreciated -petty 2nd to vanco toxicity -cr down to 2.54 today (4) Chronic renal disease, stage 4, severely decreased glomerular filtration rate (GFR) between 15-29 mL/min/1.73 square meter: Plan: cr elevated above base of 2.4 losartan on hold (5) Hypercapnic respiratory failure: (6) T2DM (type 2 diabetes mellitus): Plan: RISS, lantus (7) Hypertension: Plan: coreg, isosorbide (8) Dyslipidemia: (9) CAD (coronary atherosclerotic disease): Plan: -cardiology consult appreciated (10) Lumbosacral spondylosis with radiculopathy: Plan: -stable from orthopedic stand point -PT recommending Rehab placement Plan 74-year-old male who underwent lumbar spine surgery on 02/28/2025. He has a known history of heart failure reduced ejection fraction and chronic kidney disease stage III typically following in the [facility]. Patient is known to have coronary disease status post stenting of an ostial LAD and diagonal 1 patient is diabetic however did receive cardiac clearance and underwent successful surgery. Postsurgery, 3 days the patient became profoundly hypoxic during physical therapy and has remained hypoxic since that time. It was discovered that he has a right sided pneumonia and was initiated on an antibiotics. Despite antibiotic care the patient continued to be hypoxic. The patient has progressed with acute kidney injury with a history of chronic kidney disease with creatinines now raising to the 3 range and BUN in the 90 range. Pulmonary medicine consulted and does not feel pneumonia is a significant player in his hypoxia but feels this is rather hypoventilation from atelectasis. Admission and Anticipated Discharge Date Admission Date: February 28, 2025 Subjective No events overnight, patient on 3LNC this am. Review of Systems Review of Systems: CONST: Negative for fever, body aches and chills. HENT: Negative for neck pain/stiffness, headache, congestion, sore throat, swelling. EYES: Negative for discharge/pain or vision changes. RESP: Negative for cough/hemoptysis and shortness of breath. CV: Negative chest pain, difficulty breathing, palpitations. ABD: Negative pain, nausea, vomiting. : Negative increase frequency, dysuria, blood in urine or stool. MUSC: Negative for muscle aches, edema. SKIN: Negative rash, lesions/sores. NEURO: Negative headache, dizziness, weakness. Physical Exam Physical Exam: GENERAL APPEARANCE NAD, activity normal for age, well developed/ well nourished, no cyanosis, pallor, or diaphoresis. EYES lids/conjunctiva normal. EARS/NOSE/THROAT Mucous membranes moist, nares normal, lips/teeth normal uvula midline without oral pharyngeal erythema, exudate or swelling TMs normal bilaterally. No lymphangitis/lymphedema. HEAD/NECK normocephalic atraumatic, no facial trauma, neck is supple. RESPIRATORY respiratory effort normal, speaks in full sentences, no tripod posit ion, no accessory muscle use. Lungs clear to auscultation without rhonchi, wheezes, rales CARDIAC Regular rate and rhythm, no edema. ABDOMINAL Soft, ND/NT. No evidence of fluid wave. No pulsatile masses on exam, rebound tenderness, Mars sign or pain over Mcburney's point. MUSCLES/EXTREMITIES No abnormal range of motion, no swelling. SKIN Warm, pink and dry. No rashes, dermatoses, petechiae or lesions. NEUROLOGICAL Speech is clear and appropriate. Normal level of consciousness. Gait and coordination are normal. 5/5 strength in all extremities. PSYCH Normal mood and affect. Judgement/competence is appropriate Results & Data Results & Data Vital Signs (Past 12 Hours) Vital Signs Temp Pulse Pulse Pulse Resp BP BP 03/11/25 07:25 36.5 C 66 19 158/69 H 03/11/25 04:32 36.5 C 66 18 155/69 H 03/11/25 01:59 03/10/25 23:51 37.2 C 63 18 152/70 H 03/10/25 22:32 66 18 Pulse Ox O2 Del Method O2 Flow Rate FiO2 03/11/25 07:25 93 Nasal Cannula 3 03/11/25 04:32 93 Nasal Cannula 3 03/11/25 01:59 Nasal Cannula, CPAP 2 03/10/25 23:51 98 CPAP 03/10/25 22:32 95 40 PG Care Time/CCT Total # of Minutes Spent Total Time Spent with Patient: Total time spent is greater than 50% in coordination of care (as documented) at patient's floor/unit and/or counseling patient: Coding Level of Care Code 46912 SUB INP/OBS CARE 2/35MIN Diagnoses Acute on chronic respiratory failure with hypoxia and hypercapnia J96.21; J96.22 HAP (hospital-acquired pneumonia) J18.9; Y95 Acute kidney failure N17.9 Chronic renal disease, stage 4, severely decreased glomerular filtration rate (GFR) between 15-29 mL/min/1.73 square meter N18.4 Hypercapnic respiratory failure J96.92 Type 2 diabetes mellitus with diabetic nephropathy, with long-term current use of insulin E11.21; Z79.4 Diabetes mellitus termite treater helper insulin use: with retirement use Diabetes mellitus complication status: with kidney complications Diabetes mellitus complication detail: with nephropathy Primary hypertension I10 Hypertension type: primary hypertension Dyslipidemia E78.5 Atherosclerosis of [place] coronary artery of [place] heart with other form of angina pectoris I25.118 Coronary Disease-Associated Artery/Lesion type: [place] artery [place] vs. transplanted heart: [place] heart Associated angina: with other forms of angina Lumbosacral spondylosis with radiculopathy M47.27 (6) T2DM (type 2 diabetes mellitus) Diabetes mellitus termite treater helper insulin use: with termite treater helper use Diabetes mellitus complication status: with kidney complications Diabetes mellitus complication detail: with nephropathy Qualified Code(s): E11.21 - Type 2 diabetes mellitus with diabetic nephropathy; Z79.4 - jail (current) use of insulin (7) Hypertension Hypertension type: primary hypertension Qualified Code(s): I10 - Essential (primary) hypertension (9) CAD (coronary atherosclerotic disease) Coronary Disease-Associated Artery/Lesion type: [place] artery [place] vs. transplanted heart: [place] heart Associated angina: with other forms of angina Qualified Code(s): I25.118 - Atherosclerotic heart disease of [place] coronary artery with other forms of angina pectoris
--- NOTE | 2025-03-11 10:21 | Nephrology Progress Note ---
Date of Service March 11, 2025 Assessment & Plan (1) Acute kidney failure: Plan: Non-oliguric. DAMI attributed to ATN/hemodynamic + vanco. Creatinine has returned to baseline ~2.5 mg/dL. BP and volume status acceptable. Electrolytes normal. No indication for CATALYST IMPREGNATOR at this time. Losartan held. Continue to hold for now pending outpatient follow up. No additional nephrology recommendations at this time. I will sign-off. Please check a follow up metabolic profile within 1 week of discharge and arrange follow up with Dr. Collins within 2 weeks. (2) Chronic renal disease, stage 4, severely decreased glomerular filtration rate (GFR) between 15-29 mL/min/1.73 square meter: Plan: Baseline creatinine 2.2-2.5 mg/dL. CKD attributed to DKD and hypertension. Medications appropriate for kidney function. Losartan held. Manish follows with Dr. Collins in [place] as an outpatient. (3) Lumbosacral spondylosis with radiculopathy: Plan: 02/28: lumbar decompression and posterior spine fusion. Manish is aiming for discharge home with . (4) Anemia: Plan: Anemia of CKD + low iron. Completed loading dose of 1000 mg Venofer. Hgb stable. Admission and Anticipated Discharge Date Admission Date: February 28, 2025 Subjective No acute events overnight. Manish feels well this AM. Pain is controlled. He has been out of bed and walking. Strength is improving. He denies significant dyspnea. No fevers or chills. No fluid retention or edema. Review of Systems Review of Systems: All systems reviewed & are unremarkable except as noted in HPI & below Physical Exam Constitutional: WD/WN, vitals as above no acute distress Eyes: + anicteric sclerae Neck: normal visual inspection Respiratory: normal respiratory effort Auscultation: lungs clear to auscultation bilaterally Cardiovascular: RRR, no murmur, no edema Gastrointestinal (Abdomen): Inspection/Auscultation: abdomen normal to inspection Musculoskeletal: Extremities: extremities normal to inspection Skin: no rashes, warm and dry Neurologic: no focal motor deficits Psychiatric: Orientation: alert and oriented x 3 Affect: euthymic affect Results & Data Vital Signs (Past 12 Hours) Vital Signs Temp Pulse Pulse Pulse Resp BP BP 03/11/25 07:25 36.5 C 66 19 158/69 H 03/11/25 04:32 36.5 C 66 18 155/69 H 03/11/25 01:59 03/10/25 23:51 37.2 C 63 18 152/70 H 03/10/25 22:32 66 18 Pulse Ox O2 Del Method O2 Flow Rate FiO2 03/11/25 07:25 93 Nasal Cannula 3 03/11/25 04:32 93 Nasal Cannula 3 03/11/25 01:59 Nasal Cannula, CPAP 2 03/10/25 23:51 98 CPAP 03/10/25 22:32 95 40 Laboratory Results Laboratory Results - last 24 hr 03/10/25 03/10/25 03/10/25 12:21 16:48 20:38 WBC RBC Hgb Hct MCV MCH MCHC RDW Std Deviation RDW Coeff of Ortega Plt Count MPV Absolute Nucleated RBC Nucleated RBC % (auto) Sodium Potassium Chloride Carbon Dioxide Anion Gap BUN Creatinine Est Cr Clr Drug Dosing eGFR BUN/Creatinine Ratio Glucose POC Glucose 130 H 158 H 132 H Calcium 03/11/25 03/11/25 03/11/25 04:26 04:28 08:08 WBC 18.03 H RBC 3.22 L Hgb 9.3 L Hct 28.6 L MCV 88.8 MCH 28.9 MCHC 32.5 RDW Std Deviation 45.5 RDW Coeff of Ortega 14.3 Plt Count 260 MPV 10.6 Absolute Nucleated RBC 0.02 Nucleated RBC % (auto) 0.1 Sodium 141 Potassium 4.2 Chloride 108 H Carbon Dioxide 26 Anion Gap 7 BUN 82 H Creatinine 2.54 H Est Cr Clr Drug Dosing 32.9 eGFR 25.49 BUN/Creatinine Ratio 32.3 H Glucose 97 POC Glucose 96 Calcium 8.0 L PG Care Time/CCT Total # of Minutes Spent Total Time Spent with Patient: Total time spent is greater than 50% in coordination of care (as documented) at patient's floor/unit and/or counseling patient: Coding Level of Care Code 47150 SUB INP/OBS CARE 3/50MIN Diagnoses Acute kidney failure N17.9 Chronic renal disease, stage 4, severely decreased glomerular filtration rate (GFR) between 15-29 mL/min/1.73 square meter N18.4 Lumbosacral spondylosis with radiculopathy M47.27 Anemia D64.9
--- NOTE | 2025-03-11 12:50 | Pharmacy Report ---
Pharmacy Glycemic Short Note 2 - Date of Service March 11, 2025 - Glycemic Short BSG Results (Last 24 hours): 03/10/25 03/10/25 03/11/25 16:48 20:38 04:28 Glucose 97 POC Glucose 158 H 132 H 03/11/25 03/11/25 08:08 11:43 Glucose POC Glucose 96 106 H OUTPATIENT ANTIDIABETIC REGIMEN: * Degludec 100 units SC BID * Lispro 35 units with break & lunch, 45 units with dinner * Semaglutide 1 mg SC once weekly A1c = 6.8% (January 2025) ASSESSMENT: 03/11 * Ted only received 4 units of insulin yesterday (all were bolus). BSGs were in the goal range with the exception of the fasting BSG. * Fasting BSG this morning was 96mg/dL. Will continue to hold Lantus and will continue the bolus insulin regimen without change. 03/10 * Patient received a total of 10 units of insulin yesterday (all were basal). BSGs were mostly all below goal range. * Fasting BSG was 68mg/dL. No Lantus will be given this morning. Bolus insulin regimen will be continued as previously ordered without change. 03/08 * Ted received 1 unit of correctional insulin yesterday * Fasting BSG this AM below goal on blood draw and then POC within goal range. Suspect that BSGs will rise without any basal insulin, will give low dose basal this AM and continue to follow. Potentially extended duration of action with renal dysfunction? * NovoLog carbohydrate ratio tighten slightly. 03/05 * Patient required significantly less insulin yesterday than previous days (total of 31 units of insulin of which 20 units were basal) and he still dropped below the goal range last evening. No basal insulin was given last evening. Patient reportedly did not have much oral intake yesterday. * Fasting BSG was 52mg/dL this morning and improved to 99/147mg/dL after receiving D50. Lantus insulin was held again this morning and the CR of the bolus insulin was loosened. Will consider adding a small Lantus scale tonight if he continues eating today and BSGs start trending back up. 03/03 * Ted received a total of 313 units of insulin yesterday (220 units were basal and 93 units were bolus). BSGs were all above goal despite increased insulin usage. * Fasting BSG today was 105mg/dL. Today is the last day of scheduled dexamethasone so it is expected that insulin needs will decrease as the steroids wear off. Will continue lantus scale (reduced to 40, 60, or 80 units based on BSG) and bolus insulin as previously ordered. Will likely need to loosen bolus insulin parameters tomorrow morning. 03/01 * Ted is a 74yo M with PMH of type II DM, POLO, CAD with PCI, CKD IV who is POD # 1 s/p lumbar decompression and fusion. Patient experienced postop hypercapnic respiratory failure and prolonged sedation. Scr trending up. * He is ordered high dose IV steroids, dexamethasone 6 mg IV daily. Anticipate steroid induced hyperglycemia. * Patient with decent BSG control overnight after receiving reduced dose of Lantus 25 units at HS. Fasting BSG of 170 mg/dL this AM. Trended up to 278 mg/dL at lunch. * Increase basal insulin. Lantus 40 units given with breakfast and lunch. Will start Lantus per BSG scale this evening (max daily dose will be 20% decrease in home dose). Tighten Novolog CF and CR. PLAN FOR INPATIENT GLYCEMIC CONTROL: * Hold outpatient diabetes medications * Basal insulin * hold * Bolus insulin * NovoLog per scale ACHS or Q6hrs while NPO * Goal Range: Low 120mg/dL - High 160 mg/dL * Correction Factor: 20 mg/dL/unit * Nutritional / Prandial insulin per carb ratio of 1 unit per 15 grams CHO consumed
--- NOTE | 2025-03-11 13:37 | Orthopedic Progress Note ---
Date of Service March 11, 2025 Assessment & Plan (1) Lumbosacral spondylosis with radiculopathy: Plan: At this time encourage continued physical therapy. I suspect he struggling with trochanteric bursitis on the right. Discharge is pending medical stability. Admission and Anticipated Discharge Date Admission Date: February 28, 2025 Subjective Patient's back pain is controlled. He is struggling with some right thigh pain. Is worse with sitting. States does not trouble him with walking. He is not short of breath. Physical Exam Physical Exam: Patient is in the chair at the bedside. Has good strength testing right lower extremity. There is tenderness palpation of the right IT band. Results & Data Vital Signs (Past 12 Hours) Vital Signs Temp Pulse Pulse Pulse Resp BP BP 03/11/25 11:48 37.0 C 69 17 148/66 H 03/11/25 08:00 68 03/11/25 07:25 36.5 C 66 19 158/69 H 03/11/25 04:32 36.5 C 66 18 155/69 H 03/11/25 01:59 Pulse Ox O2 Del Method O2 Flow Rate 03/11/25 11:48 93 Room Air 1 03/11/25 08:00 03/11/25 07:25 93 Nasal Cannula 3 03/11/25 04:32 93 Nasal Cannula 3 03/11/25 01:59 Nasal Cannula, CPAP 2 Queries Orthopedic Spine Obesity: Yes
[2025-03-11] MEDS: oxyCODONE HCL IR 5 MG TAB (IMMEDIATE RELEASE) PO PRN (17:38)
[2025-03-12 06:28] LABS: BUN Creatinine Ratio 30.5 (10-20); Calcium 8.2 mg/dl (8.6-10.3); Potassium 4.1 mmol/L (3.5-5.1)
[2025-03-12] MEDS: traMADol HCL 50 MG TABLET PO PRN (08:26)
--- NOTE | 2025-03-12 08:58 | Pulmonology Progress Note ---
Date of Service March 12, 2025 Assessment & Plan (1) Acute on chronic respiratory failure with hypoxia and hypercapnia: (2) Atelectasis: (3) HAP (hospital-acquired pneumonia): (4) Acute systolic (congestive) heart failure: (5) Pleural effusion: Plan Impression: 74-year-old male with likely undiagnosed sleep disordered breathing admitted for elective back surgery with postoperative hypoxemia which is multifactorial due to combinations of VQ mismatching and atelectasis as well as hypercarbia. Clinically improving. Oxygen requirement stable and weaning this am. Bilateral lower lobe atelectasis: -Continue aggressive incentive spirometry using it up to 10x per hour. -Out of bed to chair is much as tolerated and ambulate as much as tolerated. -Discussed with patient the importance of performing ISB and being as active. Re-education on ISB technique complete this am. Hypoxemia: -target oxygen saturations 88-90% -Spo2 this am 95% on 1 liter nasal cannula. Was able to come off during the day while awake. -Bubble echocardiogram negative for shunt. -Cont diuresis Likely undiagnosed sleep disordered breathing. -Agree with application of positive airway pressure at night and as needed during the day. -Recommend outpatient polysomnography Possible pneumonia/aspiration: -Currently on Augmentin, complete 7 day course on 03/12/2025. -Procalcitonin has hovered around 0.5 to 0.6. -White blood cell count remains elevated but stable at 18.03 and do not think we can necessarily attribute this to pneumonia. -Patient afebrile through out hospital course. Management of patient's other medical issues per primary admitting service. Pulmonary to sign off as patient is clinically improving Feel free to contact us with questions or concerns going forward. Admission and Anticipated Discharge Date Admission Date: February 28, 2025 Supervising Physician Co-Signing Physician Notes I saw and evaluated the patient with MIMA Abdi, and agree with findings and plan as documented in the note. CT chest 03/03/2025 personally reviewed: Small right-sided pleural effusion, minimal left-sided pleural effusion Elevated right hemidiaphragm with dependent atelectasis bilateral lower lobe Minimal left paratracheal mediastinal lymphadenopathy 2D echo 03/07/2025: EF 30-35%, moderate global hypokinesis, mild concentric LVH no interatrial shunt Patient seen and examined at bedside. No acute distress, no adverse events overnight He was saturating 96% on room air. Stated that he is feeling much better compared to before Has been walking around with the help of physical therapy. Used his noninvasive ventilator at night. No nausea or vomiting Fair appetite Patient's was in the room at the time of examination Constitutional: No acute distress HEENT: EOMI, PERRLA Respiratory system: Decreased air entry bilaterally, more decreased on the right lower side, no wheeze, no rhonchi, mild crackles bilateral lower lobe CVS: S1-S2 positive, no murmurs or gallops Abdomen: Soft, nontender, nondistended, positive bowel sounds x4, obese Extremities: +2 pulses bilaterally radialis/ dorsalis pedis, no cyanosis, minimal pitting edema bilateral lower extremity Neuro: Awake alert oriented x3 Psych: Normal mood and affect G/U: No [place] Plan: In/out: +1L since coming to the hospital Today will be the last day of antibiotic Continue with incentive spirometry even at home Recommend outpatient polysomnography. Continue with noninvasive ventilator as needed shortness of breath Case was discussed with primary team No further recommendation from pulmonary perspective, will sign off Please call directly with any questions Please note the above document was generated using voice recognition software. It may contain grammatical, syntax or spelling errors.Any formal questions or concerns about the content, text or information contained within the body of this dictation should be directly addressed to the provider for clarification. Subjective "My breathing feels good but I have this right hip pain." Patient states he worse his CPAP overnight. Is active with Physical therapy during the day and doing ISB a few times per hour. Education continued with ISB technique. SpO2 95% on 1 liter nasal cannula and per nursing is able to come off oxygen when awake but requires with sleep. Review of Systems 2 Review of Systems: All systems reviewed & are unremarkable except as noted in HPI & below Physical Exam 2 Constitutional: WD/WN, vitals as above + obese and cooperative Neck: trachea midline, no thyromegaly Respiratory: normal respiratory effort, lungs clear to auscultation Cardiovascular: RRR, no murmur, no edema Gastrointestinal (Abdomen): normal bowel sounds, soft, nontender, no hepatosplenomegaly Musculoskeletal: Extremities: extremities normal to inspection (Pain in thigh of right lower extremity) Skin: no rashes, warm and dry Lymphatic: no cervical lymphadenopathy Results & Data Results & Data Vital Signs (Past 12 Hours) Vital Signs Temp Pulse Pulse Resp BP Pulse Ox O2 Del Method 03/12/25 07:00 36.4 C L 64 18 168/74 H 95 Nasal Cannula 03/12/25 02:54 36.9 C 73 18 158/74 H 90 Room Air 03/11/25 22:59 36.4 C L 71 18 151/71 H 95 CPAP 03/11/25 22:04 73 19 93 O2 Flow Rate FiO2 03/12/25 07:00 2 03/12/25 02:54 03/11/25 22:59 03/11/25 22:04 40 Laboratory Results 03/11/25 04:26 03/12/25 05:36 Abnormal Lab Results 03/11/25 03/11/25 03/11/25 11:43 17:02 20:03 Sodium Potassium Chloride Carbon Dioxide Anion Gap BUN Creatinine Est Cr Clr Drug Dosing eGFR BUN/Creatinine Ratio Glucose POC Glucose 106 H 94 95 Calcium 03/12/25 03/12/25 05:36 08:17 Sodium 144 Potassium 4.1 Chloride 110 H Carbon Dioxide 26 Anion Gap 8 BUN 74 H Creatinine 2.43 H Est Cr Clr Drug Dosing 34.0 eGFR 26.88 BUN/Creatinine Ratio 30.5 H Glucose 74 POC Glucose 71 Calcium 8.2 L Diagnostic Findings No recent diagnostic studies. PG Care Time/CCT Total # of Minutes Spent Total Time Spent with Patient: Total time spent is greater than 50% in coordination of care (as documented) at patient's floor/unit and/or counseling patient: Coding Level of Care Code 11662 SUB INP/OBS CARE 2/35MIN Diagnoses Acute on chronic respiratory failure with hypoxia and hypercapnia J96.21; J96.22 Atelectasis J98.11 HAP (hospital-acquired pneumonia) J18.9; Y95 Acute systolic (congestive) heart failure I50.21 Pleural effusion J90
--- NOTE | 2025-03-12 09:43 | Hospitalist Progress Note ---
Date of Service March 12, 2025 Assessment & Plan (1) Acute on chronic respiratory failure with hypoxia and hypercapnia: Plan: Pulmonary consult appreciated likely 2nd to b/l lower lobe atelectasis con't ISB, flutter valve Postive pressure ventilation repeat CXR showing Increased pneumonia versus atelectasis in the lung bases. echo showing no interatrial shunt Pt off 02 this am (2) HAP (hospital-acquired pneumonia): Plan: -con't augmentin (3) Acute kidney failure: Plan: -cr elevated to 3.3 -nephrology consult appreciated -petty 2nd to vanco toxicity -cr down to 2.54 (4) Chronic renal disease, stage 4, severely decreased glomerular filtration rate (GFR) between 15-29 mL/min/1.73 square meter: Plan: cr elevated above base of 2.4 losartan on hold (5) Hypercapnic respiratory failure: (6) T2DM (type 2 diabetes mellitus): Plan: RISS, lantus (7) Hypertension: Plan: coreg, isosorbide (8) Dyslipidemia: (9) CAD (coronary atherosclerotic disease): Plan: -cardiology consult appreciated (10) Lumbosacral spondylosis with radiculopathy: Plan: -stable from orthopedic stand point -PT recommending Rehab placement Plan 74-year-old male who underwent lumbar spine surgery on 02/28/2025. He has a known history of heart failure reduced ejection fraction and chronic kidney disease stage III typically following in the [facility]. Patient is known to have coronary disease status post stenting of an ostial LAD and diagonal 1 patient is diabetic however did receive cardiac clearance and underwent successful surgery. Postsurgery, 3 days the patient became profoundly hypoxic during physical therapy and has remained hypoxic since that time. It was discovered that he has a right sided pneumonia and was initiated on an antibiotics. Despite antibiotic care the patient continued to be hypoxic. The patient has progressed with acute kidney injury with a history of chronic kidney disease with creatinines now raising to the 3 range and BUN in the 90 range. Pulmonary medicine consulted and does not feel pneumonia is a significant player in his hypoxia but feels this is rather hypoventilation from atelectasis. Admission and Anticipated Discharge Date Admission Date: February 28, 2025 Subjective No events overnight, pt off oxygen this am. Review of Systems Review of Systems: CONST: Negative for fever, body aches and chills. HENT: Negative for neck pain/stiffness, headache, congestion, sore throat, swelling. EYES: Negative for discharge/pain or vision changes. RESP: Negative for cough/hemoptysis and shortness of breath. CV: Negative chest pain, difficulty breathing, palpitations. ABD: Negative pain, nausea, vomiting. : Negative increase frequency, dysuria, blood in urine or stool. MUSC: Negative for muscle aches, edema. SKIN: Negative rash, lesions/sores. NEURO: Negative headache, dizziness, weakness. Physical Exam Physical Exam: GENERAL APPEARANCE NAD, activity normal for age, well developed/ well nourished, no cyanosis, pallor, or diaphoresis. EYES lids/conjunctiva normal. EARS/NOSE/THROAT Mucous membranes moist, nares normal, lips/teeth normal uvula midline without oral pharyngeal erythema, exudate or swelling TMs normal bilaterally. No lymphangitis/lymphedema. HEAD/NECK normocephalic atraumatic, no facial trauma, neck is supple. RESPIRATORY respiratory effort normal, speaks in full sentences, no tripod position, no accessory muscle use. Lungs clear to auscultation without rhonchi, wheezes, rales CARDIAC Regular rate and rhythm, no edema. ABDOMINAL Soft, ND/NT. No evidence of fluid wave. No pulsatile masses on exam, rebound tenderness, Mars sign or pain over Mcburney's point. MUSCLES/EXTREMITIES No abnormal range of motion, no swelling. SKIN Warm, pink and dry. No rashes, dermatoses, petechiae or lesions. NEUROLOGICAL Speech is clear and appropriate. Normal level of consciousness. Gait and coordination are normal. 5/5 strength in all extremities. PSYCH Normal mood and affect. Judgement/competence is appropriate Results & Data Results & Data Vital Signs (Past 12 Hours) Vital Signs Temp Pulse Pulse Resp BP Pulse Ox O2 Del Method 03/12/25 07:00 36.4 C L 64 18 168/74 H 95 Nasal Cannula 03/12/25 02:54 36.9 C 73 18 158/74 H 90 Room Air 03/11/25 22:59 36.4 C L 71 18 151/71 H 95 CPAP 03/11/25 22:04 73 19 93 O2 Flow Rate FiO2 03/12/25 07:00 2 03/12/25 02:54 03/11/25 22:59 03/11/25 22:04 40 PG Care Time/CCT Total # of Minutes Spent Total Time Spent with Patient: Total time spent is greater than 50% in coordination of care (as documented) at patient's floor/unit and/or counseling patient: Coding Level of Care Code 54448 SUB INP/OBS CARE 2/35MIN Diagnoses Acute on chronic respiratory failure with hypoxia and hypercapnia J96.21; J96.22 HAP (hospital-acquired pneumonia) J18.9; Y95 Acute kidney failure N17.9 Chronic renal disease, stage 4, severely decreased glomerular filtration rate (GFR) between 15-29 mL/min/1.73 square meter N18.4 Hypercapnic respiratory failure J96.92 Type 2 diabetes mellitus with diabetic nephropathy, with long-term current use of insulin E11.21; Z79.4 Diabetes mellitus meterman insulin use: with meterman use Diabetes mellitus complication status: with kidney complications Diabetes mellitus complication detail: with nephropathy Primary hypertension I10 Hypertension type: primary hypertension Dyslipidemia E78.5 Atherosclerosis of [place] coronary artery of [place] heart with other form of angina pectoris I25.118 Coronary Disease-Associated Artery/Lesion type: [place] artery [place] vs. transplanted heart: [place] heart Associated angina: with other forms of angina Lumbosacral spondylosis with radiculopathy M47.27 (6) T2DM (type 2 diabetes mellitus) Diabetes mellitus meterman insulin use: with meterman use Diabetes mellitus complication status: with kidney complications Diabetes mellitus complication detail: with nephropathy Qualified Code(s): E11.21 - Type 2 diabetes mellitus with diabetic nephropathy; Z79.4 - vermin exterminator (current) use of insulin (7) Hypertension Hypertension type: primary hypertension Qualified Code(s): I10 - Essential (primary) hypertension (9) CAD (coronary atherosclerotic disease) Coronary Disease-Associated Artery/Lesion type: [place] artery [place] vs. transplanted heart: [place] heart Associated angina: with other forms of angina Qualified Code(s): I25.118 - Atherosclerotic heart disease of [place] coronary artery with other forms of angina pectoris
--- NOTE | 2025-03-12 15:47 | Orthopedic Progress Note ---
Date of Service March 12, 2025 Assessment & Plan (1) Lumbosacral spondylosis with radiculopathy: Plan: Patient stable orthopedically hopefully discharge tomorrow. Admission and Anticipated Discharge Date Admission Date: February 28, 2025 Subjective Patient resting comfortably. Physical Exam Physical Exam: patient tolerating PT Results & Data Vital Signs (Past 12 Hours) Vital Signs Temp Pulse Pulse Resp BP Pulse Ox O2 Del Method 03/12/25 14:19 60 03/12/25 11:30 63 16 158/70 H 94 Room Air 03/12/25 08:00 67 03/12/25 07:00 36.4 C L 64 18 168/74 H 95 Nasal Cannula O2 Flow Rate 03/12/25 14:19 03/12/25 11:30 03/12/25 08:00 03/12/25 07:00 2 Queries Orthopedic Spine Obesity: Yes
[2025-03-13 06:18] LABS: Hematocrit (blood only) 31.3 % (42.0-52.0); Hemoglobin 10.3 g/dl (14.0-18.0); Mean Corpuscular Hemoglobin 29.3 pg (25.0-34.0); Mean Corpuscular Hgb Conc 32.9 g/dL (32.0-36.0); Mean Corpuscular Volume 89.2 fL (80.0-100.0); Platelet Count 280 K/uL (130-400); RDW Coefficient of Variation 14.9 % (11.5-14.5); Red Blood Count 3.51 M/uL (4.70-6.10); White Blood Count 13.55 K/ul (4.8-10.8)
[2025-03-13 06:50] LABS: Calcium 8.2 mg/dl (8.6-10.3); Potassium 4.2 mmol/L (3.5-5.1)
--- NOTE | 2025-03-13 08:42 | Orthopedic Progress Note ---
Date of Service March 13, 2025 Assessment & Plan (1) Lumbosacral spondylosis with radiculopathy: Plan: He is postop day 13. He is orthopedically stable for discharge. He is post go to [place] today. Admission and Anticipated Discharge Date Admission Date: February 28, 2025 Subjective Patient is postop day 13 status post L4-S1 decompression and fusion with postoperative pneumonia/atelectasis. Biggest complaint is some right anterior thigh pain which she has had for couple days. He is doing well with short frequent walks in physical therapy. He is scheduled to be [facility] to [facility] Review of Systems Review of Systems: All systems reviewed & are unremarkable except as noted in HPI & below Physical Exam Physical Exam: He is in the restroom standing with the assistance of a walker Dressings clean dry and intact Nontender over the bursa on the right Results & Data Vital Signs (Past 12 Hours) Vital Signs Temp Pulse Pulse Pulse Resp BP Pulse Ox 03/13/25 08:18 36.3 C L 73 22 172/75 H 91 03/13/25 03:36 36.8 C 67 16 173/70 H 92 03/12/25 23:53 68 03/12/25 23:05 68 14 97 03/12/25 22:31 36.6 C 67 18 166/68 H 93 O2 Del Method FiO2 03/13/25 08:18 Room Air 03/13/25 03:36 Room Air 03/12/25 23:53 03/12/25 23:05 40 03/12/25 22:31 Room Air Queries Orthopedic Spine Obesity: Yes
--- NOTE | 2025-03-13 09:41 | Hospitalist Progress Note ---
Date of Service March 13, 2025 Assessment & Plan (1) Acute on chronic respiratory failure with hypoxia and hypercapnia: Plan: Pulmonary consult appreciated likely 2nd to b/l lower lobe atelectasis con't ISB, flutter valve Postive pressure ventilation repeat CXR showing Increased pneumonia versus atelectasis in the lung bases. echo showing no interatrial shunt Pt off 02 (2) HAP (hospital-acquired pneumonia): Plan: -con't augmentin (3) Acute kidney failure: Plan: -cr elevated to 3.3 -nephrology consult appreciated -petty 2nd to vanco toxicity -cr down to 2.0 (4) Chronic renal disease, stage 4, severely decreased glomerular filtration rate (GFR) between 15-29 mL/min/1.73 square meter: Plan: cr elevated above base of 2.4 losartan on hold (5) Hypercapnic respiratory failure: (6) T2DM (type 2 diabetes mellitus): Plan: RISS, lantus (7) Hypertension: Plan: coreg, isosorbide (8) Dyslipidemia: (9) CAD (coronary atherosclerotic disease): Plan: -cardiology consult appreciated (10) Lumbosacral spondylosis with radiculopathy: Plan: -stable from orthopedic stand point -Pt to be discharged to [facility] today 03/13 Plan 74-year-old male who underwent lumbar spine surgery on 02/28/2025. He has a known history of heart failure reduced ejection fraction and chronic kidney disease stage III typically following in the [facility] system. Patient is known to have coronary disease status post stenting of an ostial LAD and diagonal 1 patient is diabetic however did receive cardiac clearance and underwent successful surgery. Postsurgery, 3 days the patient became profoundly hypoxic during physical therapy and has remained hypoxic since that time. It was discovered that he has a right sided pneumonia and was initiated on an antibiotics. Despite antibiotic care the patient continued to be hypoxic. The patient has progressed with acute kidney injury with a history of chronic kidney disease with creatinines now raising to the 3 range and BUN in the 90 range. Pulmonary medicine consulted and does not feel pneumonia is a significant player in his hypoxia but feels this is rather hypoventilation from atelectasis. Admission and Anticipated Discharge Date Admission Date: February 28, 2025 Subjective No events overnight. Pt resting comfortably in bed off 02. Review of Systems Review of Systems: CONST: Negative for fever, body aches and chills. HENT: Negative for neck pain/stiffness, headache, congestion, sore throat, swelling. EYES: Negative for discharge/pain or vision changes. RESP: Negative for cough/hemoptysis and shortness of breath. CV: Negative chest pain, difficulty breathing, palpitations. ABD: Negative pain, nausea, vomiting. : Negative increase frequency, dysuria, blood in urine or stool. MUSC: Negative for muscle aches, edema. SKIN: Negative rash, lesions/sores. NEURO: Negative headache, dizziness, weakness. Physical Exam Physical Exam: GENERAL APPEARANCE NAD, activity normal for age, well developed/ well nourished, no cyanosis, pallor, or diaphoresis. EYES lids/conjunctiva normal. EARS/NOSE/THROAT Mucous membranes moist, nares normal, lips/teeth normal uvula midline without oral pharyngeal erythema, exudate or swelling TMs normal bilaterally. No lymphangitis/lymphedema. HEAD/NECK normocephalic atraumatic, no facial trauma, neck is supple. RESPIRATORY respiratory effort normal, speaks in full sentences, no tripod position, no accessory muscle use. Lungs clear to auscultation without rhonchi, wheezes, rales CARDIAC Regular rate and rhythm, no edema. ABDOMINAL Soft, ND/NT. No evidence of fluid wave. No pulsatile masses on exam, rebound tenderness, Mars sign or pain over Mcburney's point. MUSCLES/EXTREMITIES No abnormal range of motion, no swelling. SKIN Warm, pink and dry. No rashes, dermatoses, petechiae or lesions. NEUROLOGICAL Speech is clear and appropriate. Normal level of consciousness. Gait and coordination are normal. 5/5 strength in all extremities. PSYCH Normal mood and affect. Judgement/competence is appropriate Results & Data Results & Data Vital Signs (Past 12 Hours) Vital Signs Temp Pulse Pulse Pulse Resp BP Pulse Ox 03/13/25 09:00 03/13/25 08:59 67 03/13/25 08:18 36.3 C L 73 22 172/75 H 91 03/13/25 03:36 36.8 C 67 16 173/70 H 92 03/12/25 23:53 68 03/12/25 23:05 68 14 97 03/12/25 22:31 36.6 C 67 18 166/68 H 93 O2 Del Method FiO2 03/13/25 09:00 Room Air 05/22/25 08:59 03/13/25 08:18 Room Air 03/13/25 03:36 Room Air 03/12/25 23:53 03/12/25 23:05 40 03/12/25 22:31 Room Air PG Care Time/CCT Total # of Minutes Spent Total Time Spent with Patient: Total time spent is greater than 50% in coordination of care (as documented) at patient's floor/unit and/or counseling patient: Coding Level of Care Code 90157 SUB INP/OBS CARE 2/35MIN Diagnoses Acute on chronic respiratory failure with hypoxia and hypercapnia J96.21; J96.22 HAP (hospital-acquired pneumonia) J18.9; Y95 Acute kidney failure N17.9 Chronic renal disease, stage 4, severely decreased glomerular filtration rate (GFR) between 15-29 mL/min/1.73 square meter N18.4 Hypercapnic respiratory failure J96.92 Type 2 diabetes mellitus with diabetic nephropathy, with long-term current use of insulin E11.21; Z79.4 Diabetes mellitus detention insulin use: with detention use Diabetes mellitus complication status: with kidney complications Diabetes mellitus complication detail: with nephropathy Primary hypertension I10 Hypertension type: primary hypertension Dyslipidemia E78.5 Atherosclerosis of [place] coronary artery of [place] heart with other form of angina pectoris I25.118 Coronary Disease-Associated Artery/Lesion type: [place] artery [place] vs. transplanted heart: [place] heart Associated angina: with other forms of angina Lumbosacral spondylosis with radiculopathy M47.27 (6) T2DM (type 2 diabetes mellitus) Diabetes mellitus terminal superintendent insulin use: with terminal superintendent use Diabetes mellitus complication status: with kidney complications Diabetes mellitus complication detail: with nephropathy Qualified Code(s): E11.21 - Type 2 diabetes mellitus with diabetic nephropathy; Z79.4 - continuous churn buttermaker (current) use of insulin (7) Hypertension Hypertension type: primary hypertension Qualified Code(s): I10 - Essential (primary) hypertension (9) CAD (coronary atherosclerotic disease) Coronary Disease-Associated Artery/Lesion type: [place] artery [place] vs. transplanted heart: [place] heart Associated angina: with other forms of angina Qualified Code(s): I25.118 - Atherosclerotic heart disease of [place] coronary artery with other forms of angina pectoris
[2025-03-13 11:48] VITALS: RESP 20; TEMP 97.5; O2SAT 94
[2025-03-13 14:53] VITALS: BP 159/74; PULSE 67
== END 2025-03-13 16:42 | DRG 426 ==
LOC: ASU 08:02 → 4W 12:32
DX: I24.89 Other forms of acute ischemic heart disease; I50.43 Acute on chronic combined systolic (congestive) and diastolic (congestive) heart failure; T41.205A Adverse effect of unspecified general anesthetics, initial encounter; E11.22 Type 2 diabetes mellitus with diabetic chronic kidney disease; E87.29 Other acidosis; T36.8X5A Adverse effect of other systemic antibiotics, initial encounter; J18.9 Pneumonia, unspecified organism; J98.11 Atelectasis; M48.061 Spinal stenosis, lumbar region without neurogenic claudication; Z68.32 Body mass index [BMI] 32.0-32.9, adult; I13.0 Hypertensive heart and chronic kidney disease with heart failure and stage 1 through stage 4 chronic kidney disease, or unspecified chronic kidney disease; N17.0 Acute kidney failure with tubular necrosis; I25.5 Ischemic cardiomyopathy; Z79.4 Long term (current) use of insulin; E78.5 Hyperlipidemia, unspecified; Z79.85 Long-term (current) use of injectable non-insulin antidiabetic drugs; Z79.899 Other long term (current) drug therapy; J96.22 Acute and chronic respiratory failure with hypercapnia; I25.10 Atherosclerotic heart disease of native coronary artery without angina pectoris; M47.27 Other spondylosis with radiculopathy, lumbosacral region; E11.319 Type 2 diabetes mellitus with unspecified diabetic retinopathy without macular edema; E87.5 Hyperkalemia; D63.1 Anemia in chronic kidney disease; D69.6 Thrombocytopenia, unspecified; G47.33 Obstructive sleep apnea (adult) (pediatric); Z95.5 Presence of coronary angioplasty implant and graft; Z79.82 Long term (current) use of aspirin; Y95 Nosocomial condition; E66.9 Obesity, unspecified; I34.0 Nonrheumatic mitral (valve) insufficiency; J96.21 Acute and chronic respiratory failure with hypoxia; N18.4 Chronic kidney disease, stage 4 (severe)